=== PATIENT | male | born 1935 | race Caucasian/White ===

== ENCOUNTER 2017-06-07 07:49 | Inpatient (IN) | payer MEDICARE ==
[2017-06-07] VITALS (16 sets, daily range): BP systolic 116–159; BP diastolic 65–82; PULSE 54–86; RESP 16–20; TEMP 97.6–97.8; O2SAT 98–99
[~2017-06-07] VITALS: Ht 177.8 cm; Wt 101.5 kg
[~2017-06-07 07:49] MED LIST: ASCO500C PO; CENTTAB20; METO50TA PO; SIMV10 PO; SYNT112T PO; XARE10TA PO
--- NOTE | 2017-06-07 07:54 | PD ---
HPI Chief Complaint: chest pain Time Seen by Provider: 07:54 Travel History International Travel<30 days: No Contact w/Intl Traveler<30days: No Traveled to known affect area: No History of Present Illness HPI 81-year-old male came to the emergency room brought by EMS with history of left- sided chest pain that started after he woke up this morning at around 7 AM. Patient said when the pain first started it was 10 out of 10. Patient was given baby aspirin and 1 nitroglycerin. This subsided the pain down to 1 out of 10 currently. Patient says the pain was like a pressure and nonradiating. He could not identify any aggravating or relieving factors. His called 911. Patient has history of atrial fibrillation and he is on Xarelto. His told me that his recapper is Dr. Valentine. Patient has never had a cardiac catheterization but had a stress test that the patient or his cannot recall when. His vital signs were stable. Patient says he's never had this kind of pain before. No associated shortness of breath, dizziness or lightheadedness. [facility] Past Medical History Narrative Medical List of his past medical, surgical, social and family history is reviewed from the nursing note. Social History Tobacco Use: No Allergies-Medications (Allergen,Severity, Reaction): Coded Allergies: No Known Allergies (Unverified Allergy, Unknown, 06/07/17) Comments No known drug allergies. Reported Meds & Prescriptions Reported Meds & Active Scripts Active Reported Centrum (Multiple Vitamins W/ Minerals) 1 Chew 1 Tab CHEW DAILY Vitamin C (Ascorbic Acid) 250 Mg Chew 500 Mg CHEW BID Levothyroxine (Levothyroxine Sodium) 112 Mcg Tab 112 Mcg PO DAILY Simvastatin 10 Mg Tab 10 Mg PO DAILY Metoprolol Succinate ER 24 HR (Metoprolol Succinate) 25 Mg Tab 25 Mg PO BID Xarelto (Rivaroxaban) 10 Mg Tab 10 Mg PO DAILY Narrative Medication List of his home medications reviewed from the nursing note. Review of Systems Except as stated in HPI: all other systems reviewed are Neg Cardiovascular: Positive: Chest Pain or Discomfort Physical Exam Narrative GENERAL: Awake, alert, anxious, elderly, moderate distress SKIN: Focused skin assessment warm/dry. HEAD: Atraumatic. Normocephalic. EYES: Pupils equal and round. No scleral icterus. No injection or drainage. ENT: No nasal bleeding or discharge. Mucous membranes pink and moist. NECK: Trachea midline. No JVD. CARDIOVASCULAR: Regular rate and rhythm. No murmur appreciated. RESPIRATORY: No accessory muscle use. Clear to auscultation. Breath sounds equal bilaterally. GASTROINTESTINAL: Abdomen soft, non-tender, nondistended. Hepatic and splenic margins not palpable. MUSCULOSKELETAL: No obvious deformities. No clubbing. No cyanosis. No edema. NEUROLOGICAL: Awake and alert. No obvious cranial nerve deficits. Motor grossly within normal limits. Normal speech. PSYCHIATRIC: Appropriate mood and affect; insight and judgment normal. Data Data Last Documented VS Orders Orders Electrocardiogram (06/07/17 08:01) Basic Metabolic Panel (Bmp) (06/07/17 08:01) Ckmb (Isoenzyme) Profile (06/07/17 08:01) Complete Blood Count With Diff (06/07/17 08:01) Magnesium (Mg) (06/07/17 08:01) Prothrombin Time / Inr (Pt) (06/07/17 08:01) Act Partial Throm Time (Ptt) (06/07/17 08:01) Troponin I (06/07/17 08:01) Chest, Single Ap (06/07/17 08:01) Ecg Monitoring (06/07/17 08:01) Bilateral Bp Monitoring (06/07/17 08:01) Iv Access Insert/Monitor (06/07/17 08:01) Oximetry (06/07/17 08:01) Oxygen Administration (06/07/17 08:01) Sodium Chloride 0.9% Flush (Ns Flush) (06/07/17 08:15) Admit Order (Ed Use Only) (06/07/17 09:02) Labs Laboratory Tests Test 06/07/17 08:10 White Blood Count 5.1 TH/MM3 Red Blood Count 4.46 MIL/MM3 Hemoglobin 13.3 GM/DL Hematocrit 39.7 % Mean Corpuscular Volume 89.0 FL Mean Corpuscular Hemoglobin 29.8 PG Mean Corpuscular Hemoglobin Concent 33.4 % Red Cell Distribution Width 13.7 % Platelet Count 110 TH/MM3 Mean Platelet Volume 7.5 FL Neutrophils (%) (Auto) 68.7 % Lymphocytes (%) (Auto) 19.8 % Monocytes (%) (Auto) 8.3 % Eosinophils (%) (Auto) 2.4 % Basophils (%) (Auto) 0.8 % Neutrophils # (Auto) 3.5 TH/MM3 Lymphocytes # (Auto) 1.0 TH/MM3 Monocytes # (Auto) 0.4 TH/MM3 Eosinophils # (Auto) 0.1 TH/MM3 Basophils # (Auto) 0.0 TH/MM3 CBC Comment DIFF FINAL Differential Comment Prothrombin Time 11.5 SEC Prothromb Time International Ratio 1.0 RATIO Activated Partial Thromboplast Time 32.7 SEC Blood Urea Nitrogen 15 MG/DL Creatinine 0.97 MG/DL Random Glucose 100 MG/DL Calcium Level 8.7 MG/DL Magnesium Level 2.3 MG/DL Sodium Level 141 MEQ/L Potassium Level 4.5 MEQ/L Chloride Level 106 MEQ/L Carbon Dioxide Level 26.9 MEQ/L Anion Gap 8 MEQ/L Estimat Glomerular Filtration Rate 74 ML/MIN Total Creatine Kinase 41 U/L Troponin I LESS THAN 0.02 NG/ML MDM Medical Decision Making Medical Screen Exam Complete: Yes Emergency Medical Condition: Yes Medical Record Reviewed: Yes Interpretation(s) Twelve-lead EKG was reviewed by me. Atrial fibrillation, left bundle branch block, normal axis, EKG change since the last EKG on record from 2013. Heart rate of 73 bpm. Differential Diagnosis Serious, non-STEMI Narrative Course 9:11 AM blood test results of back and within acceptable limits. However given the nature of his pain, age of the patient I have decided to admit him to the chest pain center and have the recapper rule out ACS. I've explained this to the patient and his and they understand. 10:01 AM I was just told by the the chest pain center PA that he spoke with Dr. Valentine who would like the patient to be admitted medically and started on heparin drip with a plan to do a cardiac catheterization tomorrow. Awaiting for the hospitalist to call back at this point. Critical Care Narrative Aggregate critical care time was 30 minutes. Time to perform other separately billable procedures was not included in the critical care time. My time did not include minutes spent treating any other patients simultaneously or on activities that did not directly contribute to the patient's treatment. The services I provided to this patient were to treat and/or prevent clinically significant deterioration that could result in: ACS, heparin drip I provided critical care services requiring my management, as noted below: Chart data review, documentation time, medication orders and management, vital sign assessments/reviewing monitor data, ordering and reviewing lab tests, ordering and interpreting/reviewing x-rays and diagnostic studies, care of the patient and discussion of the patient with the admitting physicians. Procedures EKG Prior to Arrival: Yes Diagnosis Primary Impression: Chest pain Qualified Codes: R07.9 - Chest pain, unspecified Additional Impressions: Atrial fibrillation Qualified Codes: I48.1 - Persistent atrial fibrillation Left bundle branch block Admitting Information Admitting Physician Requests: Observation Hubert Sotelo MD Jun 07, 2017 07:54
[2017-06-07] MEDS ORDERED: SODIUM CHLORIDE 0.9% FLUSH 10 ML FLUSH IVF PRN (08:15)
[2017-06-07 08:33] LABS: AUTOMATED NEUTROPHIL # 3.5 TH/MM3 (1.8-7.7); BASOPHIL % 0.8 % (0.0-2.0); EOSINOPHIL # 0.1 TH/MM3 (0-0.4); EOSINOPHIL % 2.4 % (0.0-4.0); HEMATOCRIT 39.7 % (39.0-51.0); HEMO FLAGS DIFF FINAL; LYMPH % 19.8 % (9.0-44.0); MEAN CORPUSCULAR HEMOGLOBIN 29.8 PG (27.0-34.0); MEAN CORPUSCULAR HGB CONC 33.4 % (32.0-36.0); MONO % 8.3 % (0.0-8.0); NEUT % 68.7 % (16.0-70.0); PLATELET COUNT 110 TH/MM3 (150-450); RED BLOOD COUNT 4.46 MIL/MM3 (4.50-5.90); RED CELL DISTRIBUTION WIDTH 13.7 % (11.6-17.2); WHITE BLOOD COUNT 5.1 TH/MM3 (4.0-11.0)
[2017-06-07 08:46] LABS: APTT (PATIENT) 32.7 SEC (24.3-30.1); PROTHROMBIN TIME - PATIENT 11.5 SEC (9.8-11.6)
--- NOTE | 2017-06-07 08:49 | RADRPT ---
EXAM DATE/TIME: 06/07/2017 08:21 [place] COMPARISON: No previous studies available for comparison. INDICATIONS : Mid-sternal chest pains with pressure, radiating into left arm. MEDICAL HISTORY : Stroke. SURGICAL HISTORY : Left lobectomy ENCOUNTER: Initial ACUITY: 1 day PAIN SCORE: 7/10 LOCATION: Left chest FINDINGS: Post surgical features of prior left lung resection with complete opacification of the left hemithora x and mediastinal shift to the left. This obscures the cardiomediastinal contours. Right lung is cong r. Osseous structures are intact. CONCLUSION: 1. Post surgical features of left lung resection with complete opacification of the left hemithorax a nd mediastinal shift. 2. Otherwise, negative portable chest. Morales Rivera MD on June 07, 2017 at 8:46 Board Certified Radiologist. This report was verified electronically.
[2017-06-07 08:52] LABS: ANION GAP 8 MEQ/L (5-15); BICARBONATE 26.9 MEQ/L (21.0-32.0); BLOOD UREA NITROGEN 15 MG/DL (7-18); CHLORIDE 106 MEQ/L (98-107); GLOMERULAR FILTRATION RATE 74 ML/MIN (>89); MAGNESIUM 2.3 MG/DL (1.5-2.5); POTASSIUM 4.5 MEQ/L (3.5-5.1); SODIUM (NA) 141 MEQ/L (136-145)
[2017-06-07 09:00] LABS: CREATINE KINASE 41 U/L (39-308)
[2017-06-07] MEDS ORDERED: IOHEXOL 350 MG/ML 100 ML BTL (for Cath Lab) OTHER ONE (09:04)
[2017-06-07] MEDS ORDERED: ACETAMINOPHEN/HYDROcodone 325 MG/7.5 MG TAB PO PRN (09:45)
[2017-06-07] MEDS ORDERED: ACETAMINOPHEN 500 MG CPLT PO PRN (09:45)
[2017-06-07] MEDS ORDERED: ONDANSETRON HCL 4 MG/2 ML VIAL IV PUSH PRN ×2 (09:45→11:15)
[2017-06-07] MEDS ORDERED: SODIUM CHLORIDE 0.9% FLUSH 10 ML FLUSH IV FLUSH PRN ×2 (10:15→11:15)
[2017-06-07] MEDS: METOPROLOL TARTRATE 25 MG TAB PO SCH ×2 (11:00→21:15)
[2017-06-07] MEDS: HEPARIN-D5W 25,000 U/250 ML 250 ML IV PRN (11:07)
[2017-06-07] MEDS ORDERED: NITROGLYCERIN 0.4 MG SL 25 TABS/BTL SL PRN (11:15)
[2017-06-07] MEDS ORDERED: MORPHINE SULFATE 2 MG/ML INJ IV PUSH PRN (11:30)
[2017-06-07 12:10] LABS: CREATINE KINASE 39 U/L (39-308)
--- NOTE | 2017-06-07 12:49 | HHI.HP ---
[facility] Santos Baker MD Admission Diagnosis chest pain, rule out ACS Diagnoses: Chief Complaint: chest pain Travel History International Travel<30 Days: No Contact w/Intl Traveler <30 Da: No Traveled to Known Affected Are: No History of Present Illness Written by Michelle Jay, acting as scribe for Dr. Daley on 06/07/17 at 12: 44. 81-year-old male with history of atrial fibrillation on Xarelto, hyperlipidemia , hypothyroidism, lung cancer 2009 s/p left lung resection, CVA 2011, colon cancer 1998, presents with acute onset of chest pain prior to arrival. The patient reports shortly after awakening this morning around 7am, he started to developed chest pain located at the left anterior chest pain without radiation, described as 5-6/10 throbbing pains, without associated shortness of breath, diaphoresis, or nausea/vomiting. His called 911. He was given aspirin and nitro spray which relieved his chest pain after approximately 20minutes, now chest pain free. The patient denies any prior heart disease. He believes he's had a stress test which was reportedly unremarkable. He's never had a cardiac catheterization. His lavatory attendant is Dr. Carrera. He is a former smoker, quit in 2009. He denies any other medical complaints including no headache, lightheadedness, dizziness, abdominal pain, diarrhea, or urinary complaints. Review of Systems Except as stated in HPI: all other systems reviewed are Neg Past Family Social History Past Medical History atrial fibrillation on Xarelto hyperlipidemia hypothyroidism lung cancer 2009 s/p left lobectomy CVA 2011 colon cancer 1998 s/p resection/radiation/chemo Past Surgical History Left lung resection Partial colectomy s/p colostomy replacement and reversal Reported Medications Xarelto (Rivaroxaban) 10 Mg Tab 10 Mg PO DAILY Vitamin C (Ascorbic Acid) 500 Mg Cap 500 Mg PO DAILY Centrum Silver Ultra Mens (Multiple Vitamins W/ Minerals) Silver Tab Synthroid (Levothyroxine Sodium) 112 Mcg Tab 112 Mcg PO DAILY Zocor (Simvastatin) 10 Mg Tab 10 Mg PO HS Metoprolol Tartrate 50 mg (Metoprolol Tartrate) 50 Mg Tab 25 Mg PO BID Allergies: Coded Allergies: No Known Allergies (Unverified Allergy, Unknown, 06/07/17) Active Ordered Medications Current Medications Medications (Trade) Dose Ordered Sig/Rubens Route Start Time Stop Time Status Last Admin (Synthroid) 112 mcg DAILY@0600 PO 06/08/17 06:00 (Lopressor) 25 mg BID PO 06/07/17 10:30 06/07/17 11:00 (Pravachol) 20 mg HS PO 06/07/17 21:00 (Tylenol) 500 mg Q4H PRN PO 06/07/17 09:45 ([place] 7.5-325 Mg) 1 tab Q4H PRN PO 06/07/17 09:45 Heparin Sodium/ Dextrose 250 ml @ 10 mls/hr TITRATE PRN IV 06/07/17 10:15 06/07/17 11:07 (NS Flush) 2 ml BID IV FLUSH 06/07/17 21:00 (NS Flush) 2 ml UNSCH PRN IV FLUSH 06/07/17 11:15 (Ecotrin Ec) 325 mg DAILY PO 06/08/17 09:00 (Nitrostat Sl) 0.4 mg Q5M PRN SL 06/07/17 11:15 (Morphine Inj) 2 mg Q30M PRN IV PUSH 06/07/17 11:30 (Zofran Inj) 4 mg Q6H PRN IV PUSH 06/07/17 11:15 (Lipitor) 10 mg HS PO 06/07/17 21:00 Family History Reviewed and patient does not recall significant related family history Social History Former tobacco use, 3-4 cigars daily, quit in 2009 Rare alcohol use, 1-2x per month Denies any illicit drug use Physical Exam Vital Signs Vital Signs Date Time Temp Pulse Resp B/P (MAP) Pulse Ox O2 Delivery O2 Flow Rate FiO2 06/07/17 12:06 54 20 159/81 (107) 99 Room Air 06/07/17 10:05 54 18 116/82 (93) 99 Room Air 06/07/17 08:28 71 20 97 Room Air 06/07/17 08:07 98 Room Air 06/07/17 08:07 98 Room Air 06/07/17 08:06 134/65 (88) 06/07/17 08:03 97.8 70 16 134/65 (88) 98 Physical Exam GENERAL: Well-nourished, well-developed pleasant elderly male patient in NAD. SKIN: Warm and dry. No rash. HEAD: Normocephalic. Atraumatic. EYES: Pupils equal and round. No scleral icterus. No injection or drainage. ENT: No nasal bleeding or discharge. Mucous membranes pink and moist. NECK: Supple. Trachea midline. CARDIOVASCULAR: Irregularly irregular rate and rhythm. Distant heart sounds secondary to body habitus. No murmur appreciated. RESPIRATORY: No accessory muscle use. Clear to auscultation. Breath sounds equal bilaterally. GASTROINTESTINAL: Obese abdomen, soft, non-tender, nondistended. Normoactive bowel sounds x4. MUSCULOSKELETAL: No obvious deformities. 1+ bilateral lower extremity edema. Bilateral lower extremity venous stasis dermatitis. Faint but palpable bilateral dorsalis pedis pulses, nonpalpable posterior tibialis pulses. NEUROLOGICAL: Awake and alert. No obvious cranial nerve deficits. Motor grossly within normal limits. Moving all extremities spontaneously. Normal speech. PSYCHIATRIC: Appropriate mood and affect; insight and judgment normal. Laboratory Laboratory Tests Test 06/07/17 08:10 06/07/17 11:00 White Blood Count 5.1 Red Blood Count 4.46 Hemoglobin 13.3 Hematocrit 39.7 Mean Corpuscular Volume 89.0 Mean Corpuscular Hemoglobin 29.8 Mean Corpuscular Hemoglobin Concent 33.4 Red Cell Distribution Width 13.7 Platelet Count 110 Mean Platelet Volume 7.5 Neutrophils (%) (Auto) 68.7 Lymphocytes (%) (Auto) 19.8 Monocytes (%) (Auto) 8.3 Eosinophils (%) (Auto) 2.4 Basophils (%) (Auto) 0.8 Neutrophils # (Auto) 3.5 Lymphocytes # (Auto) 1.0 Monocytes # (Auto) 0.4 Eosinophils # (Auto) 0.1 Basophils # (Auto) 0.0 CBC Comment DIFF FINAL Differential Comment Prothrombin Time 11.5 Prothromb Time International Ratio 1.0 Activated Partial Thromboplast Time 32.7 Blood Urea Nitrogen 15 Creatinine 0.97 Random Glucose 100 Calcium Level 8.7 Magnesium Level 2.3 Sodium Level 141 Potassium Level 4.5 Chloride Level 106 Carbon Dioxide Level 26.9 Anion Gap 8 Estimat Glomerular Filtration Rate 74 Total Creatine Kinase 41 39 Troponin I LESS THAN 0.02 LESS THAN 0.02 Result Diagram: 06/07/1780906/07/17809 Imaging Last Impressions Chest X-Ray 06/07/17800 Signed Impressions: Service Date/Time: Wednesday, June 07, 2017 08:21 - CONCLUSION: 1. Post surgical features of left lung resection with complete opacification of the left hemithorax and mediastinal shift. 2. Otherwise, negative portable chest. MD Wyatt Rios VTE Risk Assessment Caprini VTE Risk Assessment: Mod/High Risk (score >= 2) Caprini Risk Assessment Model Point Value = 1 Point Value = 2 Point Value = 3 Point Value = 5 Age 41-60 Minor surgery BMI > 25 kg/m2 Swollen legs Varicose veins or History of unexplained or recurrent spontaneous Oral contraceptives or hormone replacement Sepsis (< 1 month) Serious lung disease, including pneumonia (< 1 month) Abnormal pulmonary function Acute myocardial infarction Congestive heart failure (< 1 month) History of inflammatory bowel disease Medical patient at bed rest Age 61-74 Arthroscopic surgery Major open surgery (> 45 min) Laparoscopic surgery (> 45 min) Malignancy Confined to bed (> 72 hours) Immobilizing plaster cast Central venous access Age >= 75 History of VTE Family history of VTE Factor V Leiden Prothrombin [id number] Lupus anticoagulant Anticardiolipin antibodies Elevated serum homocysteine Heparin-induced thrombocytopenia Other congenital or acquired thrombophilia Stroke (< 1 month) Elective arthroplasty Hip, pelvis, or leg fracture Acute spinal cord injury (< 1 month) Prophylaxis Regimen Total Risk Factor Score Risk Level Prophylaxis Regimen 0-1 Low Early ambulation 2 Moderate Order ONE of the following: *Sequential Compression Device (SCD) *Heparin 5000 units SQ BID 3-4 Higher Order ONE of the following medications: *Heparin 5000 units SQ TID *Enoxaparin/Lovenox 40 mg SQ daily (WT < 150 kg, CrCl > 30 mL/min) *Enoxaparin/Lovenox 30 mg SQ daily (WT < 150 kg, CrCl > 10-29 mL/min) *Enoxaparin/Lovenox 30 mg SQ BID (WT < 150 kg, CrCl > 30 mL/min) AND/OR *Sequential Compression Device (SCD) 5 or more Highest Order ONE of the following medications: *Heparin 5000 units SQ TID (Preferred with Epidurals) *Enoxaparin/Lovenox 40 mg SQ daily (WT < 150 kg, CrCl > 30 mL/min) *Enoxaparin/Lovenox 30 mg SQ daily (WT < 150 kg, CrCl > 10-29 mL/min) *Enoxaparin/Lovenox 30 mg SQ BID (WT < 150 kg, CrCl > 30 mL/min) AND *Sequential Compression Device (SCD) Assessment and Plan Problem List: (1) Chest pain ICD Code: R07.9 - Chest pain, unspecified Status: Acute (2) Left bundle branch block ICD Code: I44.7 - Left bundle-branch block, unspecified Status: Acute (3) Atrial fibrillation ICD Code: I48.91 - Atrial fibrillation Status: Acute Assessment and Plan 81-year-old male with history of atrial fibrillation on Xarelto, hyperlipidemia , hypothyroidism, lung cancer 2009 s/p lobectomy, CVA 2011, colon cancer 1998, presents with acute onset of chest pain prior to arrival. Chest Pain: concern for Acute Coronary Syndrome, new LBBB. Initial troponin negative. EKG reviewed, shows LBBB which is new compared to previous EKG in 2014. ER contacted Dr. Carrera, recommended heparin drip and plan for cardiac catheterization tomorrow. -Started on IV heparin drip -Continue to trend serial cardiac enzymes and EKGs -Continue aspirin, statin, BB, nitro prn, IV morphine prn, oxygen -Check lipid panel, HgbA1c -Monitor on telemetry -Consult cardiology, patient known to Dr. Carrera -Plan for cardiac catheterization tomorrow Peripheral Vascular Disease: exam with faint pulses and evidence of PVD. -check ABIs Atrial Fibrillation: chronic, HR well controlled -continue patient's metoprolol -holding Xarelto while on heparin drip -monitor on telemetry Hyperlipidemia: chronic -continue patient's statin -check lipid panel in the am Hypothyroidism: chronic -continue patient's levothyroxine DVT Prophylaxis: on Heparin drip Discussed Condition With Patient, ER This note was transcribed by katerine Jay I, Dr. Lyndsay Daley personally performed the history, physical exam, and medical decision making; and confirmed the accuracy of the information in the transcribed note. Authenticated by Dr. Lyndsay Daley on 06/07/17 at 12:44. Problem Qualifiers (1) Chest pain: Qualified Codes: R07.9 - Chest pain, unspecified (2) Atrial fibrillation: Qualified Codes: I48.1 - Persistent atrial fibrillation Michelle Jay PA-C Jun 07, 2017 12:49 Lyndsay Daley MD Jun 07, 2017 14:18
[2017-06-07] MEDS ORDERED: CENTCHW4 CHEW (14:27)
[2017-06-07] MEDS ORDERED: LEVO112T2 PO (14:27)
[2017-06-07] MEDS ORDERED: XARE10TA PO (14:27)
[2017-06-07] MEDS ORDERED: SIMV10TA PO (14:27)
[2017-06-07] MEDS ORDERED: VITA250C3 CHEW (14:27)
[2017-06-07] MEDS ORDERED: METO1TAB42 PO (14:27)
--- NOTE | 2017-06-07 16:53 | EKG ---
Date Performed: 06/07/2017 Time Performed: 08:03:10 PTAGE: 81 years EKG: ATRIAL FIBRILLATION LEFT BUNDLE BRANCH BLOCK ABNORMAL ECG Since PREVIOUS TRACING , new LBBB PREVIOUS TRACIN10/05/2013 10.48 DOCTOR: Roxanne Perez Interpretating Date/Time 06/07/2017 16:52:09
--- NOTE | 2017-06-07 16:54 | EKG ---
Date Performed: 06/07/2017 Time Performed: 11:14:50 PTAGE: 81 years EKG: ATRIAL FIBRILLATION WITH SLOW VENTRICULAR RESPONSE ABNORMAL RHYTHM ECG Since PREVIOUS TRACING , now LBB resolved PREVIOUS TRACIN06/07/2017 11.14 DOCTOR: Roxanne Perez Interpretating Date/Time 06/13/2017 07:33:08
[2017-06-07] MEDS: ATORVASTATIN 10 MG TAB PO SCH ×2 (17:28→21:16)
[2017-06-07 17:34] LABS: CREATINE KINASE 83 U/L (39-308)
[2017-06-07 19:56] LABS: APTT (PATIENT) 57.5 SEC (24.3-30.1)
[2017-06-07] MEDS ORDERED: SODIUM CHLORIDE 0.9% FLUSH 10 ML FLUSH IV FLUSH SCH (21:00)
[2017-06-07] MEDS: PRAVASTATIN SOD 20 MG TAB PO SCH (21:15)
[2017-06-07] MEDS: SODIUM CHLORIDE 0.9% FLUSH 10 ML FLUSH IV FLUSH SCH (21:16)
[2017-06-07 23:01] LABS: ALT (GPT) 27 U/L (12-78); AST (GOT) 19 U/L (15-37)
[2017-06-07 23:04] LABS: ALKALINE PHOSPHATASE 78 U/L (45-117); HDL CHOLESTEROL 52.1 MG/DL (40.0-60.0); INDIRECT BILIRUBIN 0.3 MG/DL (0.0-0.8); LDL CHOLESTEROL 46 MG/DL (0-99); TOTAL BILIRUBIN ADULT 0.5 MG/DL (0.2-1.0)
[2017-06-07 23:06] LABS: CREATINE KINASE 39 U/L (39-308)
[2017-06-08] VITALS (26 sets, daily range): BP systolic 119–152; BP diastolic 66–89; PULSE 60–90; RESP 16–18; TEMP 97.4–98; O2SAT 97–99
[2017-06-08 04:21] LABS: APTT (PATIENT) 68.8 SEC (24.3-30.1)
[2017-06-08 04:30] LABS: POTASSIUM 4.4 MEQ/L (3.5-5.1)
--- NOTE | 2017-06-08 06:26 | MB ---
cc: WERO GILMORE DO DATE OF CONSULTATION June 07, 2017 REASON FOR CONSULTATION Unstable angina. HISTORY OF PRESENT ILLNESS Nava Wiggins is a pleasant 81-year-old male who sees my partner Dr. Carrera in the office and presented to [facility] on June 07, 2017, due to acute onset of chest pain. He states that he woke up this morning around 07:00 a.m. and started developing chest pain located over the left anterior chest wall without radiation. The pain was 5/10 and throbbing. He denies shortness of breath, diaphoresis or nausea or vomiting. His called 03-18- and he was given aspirin and nitro spray which relieved his chest pain after approximately 20 minutes. On arrival to the emergency room he was found to have an EKG showing left bundle branch block which is new to him. As he was currently chest pain-free, he was placed on a heparin drip. In seeing him, he is currently chest pain-free and without shortness of breath. PAST MEDICAL HISTORY 1. Atrial fibrillation. 2. Hyperlipidemia. 3. Hypothyroidism. 4. Lung cancer. 5. CVA (2011). 6. Colon cancer. PAST SURGICAL HISTORY 1. Left lung lobectomy (2009). 2. Partial colectomy status post colostomy placement and reversal. ALLERGIES No known drug allergies. MEDICATIONS 1. Xarelto 10 mg daily. 2. Zocor 10 mg daily. 3. Toprol XL 25 mg b.i.d. 4. Synthroid 112 mcg daily FAMILY HISTORY Denies premature coronary artery disease or sudden cardiac within the family. SOCIAL HISTORY The patient is a former tobacco user with three to four cigars daily, quitting in 2009, rare alcohol use, denies drug abuse. REVIEW OF SYSTEMS 14-systems were reviewed including osteopathic pertinent positives and negatives above, otherwise negative. PHYSICAL EXAMINATION VITAL SIGNS: Temperature 97.8, heart rate 57, blood pressure 138/72, respirations 18, pulse ox 99% on room air. IN GENERAL: The patient appears well, in no acute distress, alert, awake and oriented x3. Extraocular muscles intact. Mucous membranes moist. NECK: Supple. No JVD at 45 degrees. No carotid bruits heard bilaterally. Carotid upstroke is brisk in nature. HEART: Irregularly irregular. Positive first and second heart sounds with no noted murmurs, gallops or rubs. LUNGS: Clear to auscultation bilaterally. No wheezes, rales or rhonchi. ABDOMEN: Soft, nontender, nondistended. No organomegaly noted. EXTREMITIES: No clubbing, cyanosis or edema. Femoral and distal pulses intact bilaterally. NEUROLOGICALLY: No focal deficits. SKIN: Warm, dry and intact. OSTEOPATHIC: No kyphoscoliosis, lordosis or paraspinal tender points. LABORATORY WORK Hemoglobin 13.3, hematocrit 39.7, platelets 110. Potassium 4.5, BUN 15, creatinine 0.97. Troponin negative x4. ELECTROCARDIOGRAM (June 07, 2017 at 15:19) Atrial fibrillation with left bundle branch block, nonspecific ST-T wave changes. IMPRESSIONS 1. Chest pain concerning for coronary insufficiency. 2. Atrial fibrillation currently on Xarelto for anticoagulation. 3. New onset left bundle branch block. 4. Hyperlipidemia. 5. History of tobacco abuse. 6. History of CVA. RECOMMENDATIONS 1. Mr. Wiggins presented with chest pain which was typical for angina relieved by nitroglycerin. 2. Because of this, he will be recommended cardiac catheterization in lieu of stress testing. Risks, benefits and alternatives were explained to him and he consents as such. 3. As he is currently stable, we will continue him on a heparin drip overnight and plan for cardiac catheterization in the morning due to him previously being on Xarelto. If overnight he becomes hemodynamically or electrically unstable, or has chest pain unrelieved by medications, he may need to go more emergently. 4. We will check a 2-D echo to look at his overall left ventricular function, cardiac structure and possible valvopathies. 5. Further recommendations will be made after coronary visualization. Thank you for allowing me to see Nava Wiggins. If there are any questions please do not hesitate to call. Wero Gilmore DO VGP/SSB /12:20 AM /6:20 AM
[2017-06-08] MEDS: LEVOTHYROXINE SODIUM 112 MCG TAB PO SCH (06:37)
--- NOTE | 2017-06-08 08:11 | HHI.PR ---
Subjective Remarks in no acute distress. denies chest pain or sob. awaiting cardiac cath today. Objective Vitals Vital Signs Date Time Temp Pulse Resp B/P (MAP) Pulse Ox O2 Delivery O2 Flow Rate FiO2 06/08/17 06:00 83 06/08/17 05:01 80 06/08/17 04:42 98 06/08/17 04:00 83 06/08/17 03:00 62 06/08/17 03:00 97.8 77 18 133/76 (95) 97 06/08/17 02:00 62 06/08/17 01:00 60 06/08/17 00:00 64 06/07/17 23:00 97.7 75 18 132/81 (98) 98 06/07/17 23:00 77 06/07/17 22:00 86 06/07/17 21:00 72 06/07/17 20:00 80 06/07/17 19:47 97.6 75 18 138/74 (95) 99 06/07/17 19:47 99 Room Air 06/07/17 19:00 67 06/07/17 18:00 68 06/07/17 17:00 80 06/07/17 16:00 66 06/07/17 15:00 58 06/07/17 14:45 97.8 57 18 138/72 (94) 99 06/07/17 14:28 06/07/17 12:06 54 20 159/81 (107) 99 Room Air 06/07/17 10:05 54 18 116/82 (93) 99 Room Air 06/07/17 08:28 71 20 97 Room Air I/O 06/07/17 06/07/17 06/07/17 06/08/17 06/08/17 06/08/17 07:00 15:00 23:00 07:00 15:00 23:00 Intake Total 500 ml 240 ml Output Total 300 ml Balance 200 ml 240 ml Intake Oral 420 ml 240 ml IV Total 80 ml Output Stool Total 300 ml # Voids 2 2 # Bowel Movements 1 Result Diagram: 06/07/17 0810 06/08/17 0333 Imaging Last Impressions Chest X-Ray 06/07/17 0801 Signed Impressions: Service Date/Time: Wednesday, June 07, 2017 08:21 - CONCLUSION: 1. Post surgical features of left lung resection with complete opacification of the left hemithorax and mediastinal shift. 2. Otherwise, negative portable chest. Morales Rivera MD Objective Remarks GENERAL: This is a well-nourished, well-developed patient, in no apparent distress. CARDIOVASCULAR: Regular rate and regular rhythm without murmurs, gallops, or rubs. RESPIRATORY: diminished air entry on lower lung felix. GASTROINTESTINAL: Abdomen soft, non-tender, nondistended. Normal, active bowel sounds MUSCULOSKELETAL: Extremities without clubbing, cyanosis, or edema. NEURO: Alert & Oriented x4 to person, place, time, situation. Moves all ext x4 Medications and IVs Current Medications Sodium Chloride (NS Flush) 2 ml UNSCH PRN IVF FLUSH AFTER USING IV ACCESS; Start 06/07/17 at 08:15; Stop 06/07/17 at 10:11; Status DC Levothyroxine Sodium (Synthroid) 112 mcg DAILY@0600 PO Last administered on 06:37; Start 06/08/17 at 06:00 Metoprolol Tartrate (Lopressor) 25 mg BID PO Last administered on 06/07/17 21 :15; Start 06/07/17 at 10:30 Rivaroxaban (Xarelto) 10 mg DAILY PO ; Start 06/08/17 at 09:00; Stop 06/08/17 at 09:00; Status DC Pravastatin Sodium (Pravachol) 20 mg HS PO Last administered on 06/07/17t 21: 15; Start 06/07/17 at 21:00 Sodium Chloride (NS Flush) 2 ml UNSCH PRN IV FLUSH FLUSH AFTER USING IV ACCESS ; Start 06/07/17 at 10:15; Stop 06/07/17 at 11:23; Status DC Sodium Chloride (NS Flush) 2 ml BID IV FLUSH ; Start 06/07/17 at 21:00; Stop 06/07/17 at 21:00; Status DC Acetaminophen (Tylenol) 500 mg Q4H PRN PO HEADACHE; Start 06/07/17 at 09:45 Acetaminophen/ Hydrocodone Bitart (Cory 7.5-325 Mg) 1 tab Q4H PRN PO PAIN SCALE 1 TO 7; Start 06/07/17 at 09:45 Ondansetron HCl (Zofran Inj) 4 mg Q6H PRN IV PUSH NAUSEA; Start 06/07/17 at 09 :45; Status Cancel Aspirin (Aspirin) 325 mg DAILY PO ; Start 06/08/17 at 09:00; Status Cancel Heparin Sodium/ Dextrose 250 ml @ 10 mls/hr TITRATE PRN IV Coagulation Management Last administered on 06/07/17 11:07; Start 06/07/17 at 10:15 Sodium Chloride (NS Flush) 2 ml BID IV FLUSH Last administered on 06/07/17 21 :16; Start 06/07/17 at 21:00 Sodium Chloride (NS Flush) 2 ml UNSCH PRN IV FLUSH FLUSH AFTER USING IV ACCESS ; Start 06/07/17 at 11:15 Aspirin (Ecotrin Ec) 325 mg DAILY PO ; Start 06/08/17 at 09:00 Nitroglycerin (Nitrostat Sl) 0.4 mg Q5M PRN SL CHEST PAIN; Start 06/07/17 at 11:15 Morphine Sulfate (Morphine Inj) 2 mg Q30M PRN IV PUSH CHEST PAIN; Start at 11:30 Ondansetron HCl (Zofran Inj) 4 mg Q6H PRN IV PUSH NAUSEA OR VOMITING; Start at 11:15 Atorvastatin Calcium (Lipitor) 10 mg HS PO Last administered on 06/07/17 21: 16; Start 06/07/17 at 21:00 A/P Problem List: (1) Chest pain ICD Code: R07.9 - Chest pain, unspecified Status: Acute (2) Left bundle branch block ICD Code: I44.7 - Left bundle-branch block, unspecified Status: Acute (3) Atrial fibrillation ICD Code: I48.91 - Atrial fibrillation Status: Acute Assessment and Plan A/P Chest Pain: concern for Acute Coronary Syndrome. -Started on IV heparin drip -Continue aspirin, statin, BB, nitro prn, IV morphine prn, oxygen -Monitor on telemetry -cardiology consult appreciated and plan for cardiac cath later today. Peripheral Vascular Disease: exam with faint pulses and evidence of PVD. -check ABIs Atrial Fibrillation: chronic, HR well controlled -continue patient's metoprolol -holding Xarelto while on heparin drip -monitor on telemetry Hyperlipidemia: chronic -continue patient's statin Hypothyroidism: chronic -continue patient's levothyroxine history of lung cancer- s/p left lung resection DVT Prophylaxis: on Heparin drip Problem Qualifiers (1) Chest pain: Qualified Codes: R07.9 - Chest pain, unspecified (2) Atrial fibrillation: Qualified Codes: I48.1 - Persistent atrial fibrillation Hugo Watson MD Jun 08, 2017 08:11
[2017-06-08] MEDS ORDERED: NITROGLYCERIN INJ 5 ML ONE (08:34)
[2017-06-08] MEDS ORDERED: VERAPAMIL HCL 5 MG/2 ML VIAL ONE (08:34)
[2017-06-08] MEDS ORDERED: HEPARIN SODIUM - IV 10,000 UNITS/10 ML VIAL ONE (08:34)
[2017-06-08] MEDS ORDERED: MIDAZOLAM HCL 2 MG/2 ML VIAL ONE (08:35)
[2017-06-08] MEDS ORDERED: HEPARIN-NS/PF INJ 1,000 ML ONE (08:39)
[2017-06-08] MEDS: SODIUM CHLORIDE 0.9% FLUSH 10 ML FLUSH IV FLUSH SCH ×3 (08:42→21:14)
[2017-06-08] MEDS: METOPROLOL TARTRATE 25 MG TAB PO SCH ×2 (08:42→21:14)
[2017-06-08] MEDS ORDERED: ASPIRIN 325 MG TAB PO SCH (09:00)
[2017-06-08] MEDS ORDERED: RIVAROXABAN 10 MG TAB PO SCH (09:00)
[2017-06-08] MEDS ORDERED: ASPIRIN EC 325 MG TABEC PO SCH (09:00)
--- NOTE | 2017-06-08 09:43 | CATHPROC ---
[employer] HIS Report Study Information Study Number Admission Scheduled Start Study Start [id number] Jun 07 2017 9:03AM 06/08/2017 Jun 08 2017 8:17AM Study Type [place] Service Left/Possible PCI Cardiac Catheterization Admit Source Facility Department Other [facility] - Undercover Operator Physician and Clinical Staff Initial Wero [facility] [employer] Laboratory Technician Karen Zazueta,RN Recorder Moses Main RCIS(BS) Scrub Karen Bearden,RT(R) Procedures Performed Procedure Location (Site) Vessel Name Coronary Angiograms LCA Left Coronary Coronary Angiograms RCA Right Coronary L Heart Cath Equipment Time Radio Frequency Design Engineer Description Size Mfg Part Number Used/Scraped TRANSDUCER, TRUWAVE [id number] 08:39 HUYNH AYALA * Used W/STOCKCOCK *[id number] *[id number] *[id number] 08:39 [employer] PACK, CCL CUSTOM * Used *[id number] 08:39 [employer] SUPPORT, ARTERIAL ADULT 36598 *[id number] Used BAND, RADIAL COMPRESSION TR [id number] 09:29 [employer] MEDICAL 29CM Used LARGE 29 *[id number] 08:39 [employer] WIRE, EXCHANGE 260CM 3MMJ 260CM Used *[id number] 08:39 NAMIC MANIFOLD, 4 PORT * Used *[id number] 08:39 [employer]COMED OMNIPAQUE, 350 MG, 150ML 150ML [id number] Used [id number] 08:39 GONZALEZ MEDICAL BLANKET,WARM AIR CCL * Used *[id number] SHEATH, FR6 TRANSRADIAL RM*[id number] 08:39 TERBella [employer] MEDICAL FR 6 Used SLENDER 10CM *[id number] History: Current Medications Medication Dosage/Unit Route Frequency Last Date/Time Taken Zocor Toprol XARELTO Synthroid History: Allergies Allergy Reaction No Known Allergies History: Risk Factors Family History of Hypertension Dyslipidemia Previous [place] Previous Heart Failure Premature CAD No Yes No No No Prior Valve Prior PCI Prior CABG Surgery No No No Cerebrovascular Peripheral Artery Chronic Lung On Dialysis Diabetes Disease Disease Disease No Yes No No No History: Symptoms/Diagnosis Selection Items Chest pain History: Stress Tests Stress or Imaging Studies Performed No History: Arrhythmias Selection Items Atrial fibrillation History: Other Current Smoker Method Quit Packs a Day Years Used Pack Years No Cigars 7 Years Ago 1 30 30 Labs Hgb (g/dl) Hct (%) RBC (MIL/MM3) WBC (l/cumm) Platelets (thousands) 11.60-17.00 35.00-51.00 4.00-5.90 4.00-11.00 150.00-450.00 13.3 39.7 4.4 5.1 110 Glucose (mg/dl) BUN (mg/dl) Creatinine (mg/dl) BUN:Creatinine (1:x) 74.00-106.00 7.00-18.00 0.50-1.30 10.00-20.00 98 17 0.8 21.3 Na (meq/l) K (meq/l) Cl (meq/l) CO2 (mmol/L) Ca (mg/dl) 136.00-145.00 3.50-5.10 98.00-107.00 21.00-32.00 8.50-10.10 141 4.5 106 26.9 8.6 PT (sec) PTT (sec) INR (PTT:PT) 9.80-11.60 24.30-30.10 0.90-1.10 11.5 57.5 1 Troponin I (ng/ml) CPK (u/l) CPK-MB (ng/ML) 0.02-0.05 26.00-308.00 0.50-3.60 0.02 39 Not Drawn Medication Medication Total Dose (Bolus/Oral) Medication Total Dosage/Unit 1% XYLOCAINE 10 mL FENTANYL 50 mcg RADIAL COCKTAIL 5 mL (Bolus) VERSED 0.5 mg Medications (Bolus/Oral) Medication Time Given Dosage/Unit Administered By Reason VERSED 06/08/2017 9:02:23 AM 0.5 mg Karen Zazueta 0.5 mg VERSED given in lab by Karen Zazueta, RN in Right Antecubital via Peripheral IV. Ordered by Wero Martel FENTANYL 06/08/2017 9:03:24 AM 50 mcg Karen Zazueta 50 mcg FENTANYL given in lab by Karen Zazueta, RN in Right Antecubital via Peripheral IV. Ordered by Wero Walker 1% XYLOCAINE 06/08/2017 9:06:08 AM 10 mL Wero Walker 10 mL 1% XYLOCAINE given in lab by Wero Walker in Right Radial via Subcutaneous. Ordered by Wero Martel Ntg 200mcg Verapamil 2.5mg Heparin RADIAL COCKTAIL 06/08/2017 9:14:28 AM 5 mL (Bolus) Wero Walker 3000U 5 mL (Bolus) RADIAL COCKTAIL given in lab by Wero Walker via Radial. Using [Solution Name]. O rdered by Wero Walker Reason: Ntg 200mcg Verapamil 2.5mg Heparin 4000U. Medication (Drip) Medication Time Given Dosage/Unit Concentration/Unit Diluent (ml) Solution IV Solutions 06/08/2017 8:32:58 AM 0 mL (IV) 500 NaCl .9 Patient arrived on IV Solutions in Right Antecubital via Peripheral IV. Pump/Drip Flow = 20 ml/hr usi ng NaCl .9. Ordered by Wero Walker Initial Case Assessment Cardiovascular HR Rhythm NIBP Chest Pain 61 AFIB W RBBB 119/71 0 Edema Present Skin color Skin None Normal Warm Dry Circulatory - Right Pulses Dorsalis Pedis Femoral Radial 2 1 2 Scale (0,1,2,3,4,d) Circulatory - Left Pulses Dorsalis Pedis Femoral Radial 2 1 Scale (0,1,2,3,4,d) Circulatory - Lower Extremities Color Lower Right Color Lower Left Normal Normal Neurological State Oriented to time-place- Alert Moves all extremities person Respiration - General Respiration Rate SpO2 (%) (B/min) 12 97 Final Case Assessment Cardiovascular HR Rhythm NIBP Chest Pain 61 AFIB W RBBB 119/71 0 Edema Present Skin color Skin None Normal Warm Dry Circulatory - Right Pulses Dorsalis Pedis Femoral Radial 2 1 2 Scale (0,1,2,3,4,d) Circulatory - Left Pulses Dorsalis Pedis Femoral Radial 2 1 Scale (0,1,2,3,4,d) Circulatory - Lower Extremities Color Lower Right Color Lower Left Normal Normal Neurological State Oriented to time-place- Alert Moves all extremities person Respiration - General Respiration Rate SpO2 (%) (B/min) 12 97 Chronological Log Time Study Chronological Log 8:31:20 Patient arrived via Bed. 8:31:21 Patient Name, D.O.B, / Armband Verified By R.N. 8:31:22 Consent signed by the physician and the patient and verified by the Undercover Operator staff. 8:31:26 Pre-op and post- op instructions given; patient acknowledges understanding of instructions. 8:31:27 Verbal Stimulation=2 Physical Stimulation=2 Airway=2 Respiration=2 TOTAL=8. (0=absent, 1=li mited, 2=present) 8:32:04 Allens test performed on the right radial and ulnar artery. 8:32:07 Patient has been NPO for More than 6Hrs. 8:32:10 Skin Breakdown- 8:32:13 Patient Warmer Placed on the Table. 8:32:57 A # 20 IV was noted in the Antecubital (right). Grade = 0 8:32:57 A # 20 IV was noted in the Hand (right). Grade = 0 Patient arrived on IV Solutions in Right Antecubital via Peripheral IV. Pump/Drip Flow = 20 ml/ hr using NaCl .9. Ordered 8:32:58 by Wero Walker 8:32:59 History and physical on the chart or being dictated. Assessment: Initial Case, HR=61 BPM, Rhythm=AFIB W RBBB, IREV=360/71 mmhg, Chest Pain=0, Edema=N one, Color=Normal, Skin = Warm, Dry Right Pulses: Jonathan Ped=2, Femoral=1, Radial=2 Left Pulses: Jonathan Ped=2, Femoral=1 8:33:00 Lower Right Extremities: Color=Normal Lower Left Extremities: Color=Normal Neurological: State=Alert, Ox3, LION Respiration: Resp=12 B/min, SpO2=97 % Vitals capture started with the following parameters, Patient=Adult, Interval=5 min, Initial Pre lecgc=012 mmHg, 8:34:09 Deflation Rate=5 mmHg, Cuff placed on Left Arm 8:34:44 HR=76 bpm, QFNP=948/72 mmhg, SpO2=96.0 %, Resp=11 B/min, Pain=0, Luma=10, Rabago=2 8:39:48 HR=56 bpm, JUMS=892/71 mmhg, SpO2=95.0 %, Resp=15 B/min, Pain=0, Luma=10, Rabago=2 8:42:06 Right Radial and groin(s) prepped with 2% chlorhexidine, and draped after a 3 min. waiting t greg. 8:44:47 HR=63 bpm, MWNL=949/70 mmhg, SpO2=96.0 %, Resp=12 B/min 8:45:47 Reference ECG taken 8:49:48 HR=65 bpm, AJOD=559/68 mmhg, SpO2=95.0 %, Resp=24 B/min 8:50:32 Pressure channel 1 zeroed. 8:54:49 HR=61 bpm, TRHM=286/66 mmhg, SpO2=93.0 %, Resp=8 B/min, Pain=0, Luma=10, Rabago=2 8:55:00 MD paged 8:59:46 HR=62 bpm, HHJK=801/65 mmhg, SpO2=94.0 %, Resp=7 B/min, Pain=0, Luma=10, Rabago=2 9:01:14 MD arrived. 0.5 mg VERSED given in lab by Karen Zazueta, RN in Right Antecubital via Peripheral IV. Ordered by Wero Walker 9:02:23 G. 50 mcg FENTANYL given in lab by Karen Zazueta, RN in Right Antecubital via Peripheral IV. Order ed by Aaron, 9:03:24 Wero Golden 9:04:49 HR=45 bpm, OGWE=539/58 mmhg, SpO2=92.0 %, Resp=7 B/min, Pain=0, Luma=10, Raabgo=2 Time Out. Correct patient, correct procedure, correct physician, power injector loaded, or not l oaded with contrast with 9:05:20 surgical team present. Time Out Concurred by MD and individual staff in procedure. 9:05:22 Case Start 10 mL 1% XYLOCAINE given in lab by Wero Walker in Right Radial via Subcutaneous. Ordered by Aaron, 9:06:08 Wero Golden 9:09:48 HR=71 bpm, OXEE=699/54 mmhg, SpO2=93.0 %, Resp=15 B/min, Pain=0, Luma=10, Rabago=2 9:14:03 Access site was RIGHT Radial Artery. A SHEATH, FR6 TRANSRADIAL SLENDER 10CM FR 6 was advanced into the Radial (right) using the Estella moreno 9:14:16 technique. 5 mL (Bolus) RADIAL COCKTAIL given in lab by Wero Walker via Radial. Using [Solution Nam e]. Ordered by 9:14:28 Wero Walker Reason: Ntg 200mcg Verapamil 2.5mg Heparin 4000U. 9:14:51 HR=67 bpm, NIBP=87/50 mmhg, SpO2=93.0 %, Resp=21 B/min, Pain=0, Luma=10, Rabago=2 A JR 4.0 INFINITI CATHETER FR 5 was advanced over a wire. OMNIPAQUE, 350 MG, 150ML 150ML was use d for 9:15:14 injections. Recorded Pressure: LV, HR=31, Condition=Condition 1 9:16:31 (Left Ventricle) LV 101/3/8 Recorded Pressure: LV, Ao, HR=38, Condition=Condition 1 9:17:01 (Left Ventricle) LV 98/4/10, (Aorta) Ao 96/-1/69 Recorded Pressure: Ao, HR=61, Condition=Condition 1 9:17:50 (Aorta) Ao 89/54/69 9:18:44 The RCA was injected and visualized at various angles. OMNIPAQUE, 350 MG, 150ML 150ML used. After removing the current catheter a JL 3.5 INFINITI CATHETER FR 5 was advanced over a WIRE, EX CHANGE 260CM 9:19:48 3MMJ 260CM. 9:20:19 HR=85 bpm, NIBP=97/60 mmhg, SpO2=92.0 %, Resp=10 B/min, Pain=0, Luma=10, Rabago=2 Recorded Pressure: Ao, HR=62, Condition=Condition 1 9:21:26 (Aorta) Ao 100/57/76 9:22:00 The LCA was injected and visualized at various angles. OMNIPAQUE, 350 MG, 150ML 150ML use d. 9:24:47 HR=78 bpm, NIBP=97/54 mmhg, Resp=15 B/min, Pain=0, Luma=10, Rabago=2 9:29:54 Catheter was removed 9:29:55 Case End 9:30:25 HR=82 bpm, XAFU=411/64 mmhg, SpO2=94.0 %, Resp=19 B/min, Pain=0, Luma=10, Rabago=2 Assessment: Final Case, HR=61 BPM, Rhythm=AFIB W RBBB, GBOO=636/71 mmhg, Chest Pain=0, Edema=N one, Color=Normal, Skin = Warm, Dry Right Pulses: Jonathan Ped=2, Femoral=1, Radial=2 Left Pulses: Jonathan Ped=2, Femoral=1 9:31:37 Lower Right Extremities: Color=Normal Lower Left Extremities: Color=Normal Neurological: State=Alert, Ox3, LION Respiration: Resp=12 B/min, SpO2=97 % Radial Compression Device Used. 10 mLs of air placed in BAND, RADIAL COMPRESSION TR LARGE 29 2 9CM. Affected 9:32:29 hand 96 % O2 saturation. 9:36:04 No case complications noted. 9:36:05 Sterile dressing applied to site 9:36:08 Cine recording checked. 9:36:10 Bedside Report will be given. 9:36:14 Contrast Scanned 9:36:16 A Left Heart Cath was performed. 9:36:18 Patient moved to stretcher End Study - Contrast Media Used In Study Contrast Total Opened (mL) Total Used (mL) Total Wasted (mL) Omnipaque 65 65 0 End Study - Maximum Contrast Load Max Contrast Load (mL) 618.8 End Study - Radiation Exposure Fluoro Time (minutes) 3.2 End Study - Patient Disposition Complications Transferred To No Critical Care Bed
--- NOTE | 2017-06-08 09:57 | EKG ---
Date Performed: 06/07/2017 Time Performed: 15:19:38 PTAGE: 81 years EKG: Atrial fibrillation with PVC(s). IV conduction defect Poor R wave progression - probable no rmal variant Lateral T wave changes are nonspecific Generalized low QRS voltages Abnormal ECG PREVIOUS TRACING : 06/07/2017 11.14 DOCTOR: Santos Galicia Interpretating Date/Time 06/08/2017 09:55:51
--- NOTE | 2017-06-08 10:26 | RADRPT ---
EXAM DATE/TIME: 06/07/2017 00:00 [facility] COMPARISON: No previous studies available for comparison. INDICATIONS : Chest pain, r/o ACS TECHNIQUE: Four-cuff ankle and brachial pressures were obtained. Pulse cuff waveform tracings of the ankles were recorded, and ankle-brachial indices were calculated. PRESSURES (mmHg): Brachial (arm): Right iv site Left 105 Ankle: Right 110 Left 156 CLAY: Right 1.05 Left 1.49 TBI: Right 0.94 Left 0.91 PULSED CUFF WAVEFORMS: Demonstrate normal amplitude bilaterally. CONCLUSION: Unremarkable ankle brachial indices. Morales Rivera MD on June 08, 2017 at 10:24 Board Certified Radiologist. This report was verified electronically.
[2017-06-08] MEDS ORDERED: SODIUM CHLORIDE 0.9% FLUSH 10 ML FLUSH IV FLUSH PRN ×2 (11:00→13:15)
[2017-06-08] MEDS: HEPARIN-D5W 25,000 U/250 ML 250 ML IV PRN (11:12)
--- NOTE | 2017-06-08 12:19 | RADRPT ---
EXAM DATE/TIME: 06/08/2017 11:19 [facility] COMPARISON: No previous studies available for comparison. INDICATIONS : Pre-Op cardiac surgery. MEDICAL HISTORY : Colon cancer. Atrial fibrillation on Xarelto. Hyperlipidemia. Hypothyroidism. Lung cancer. SURGICAL HISTORY : Left lobectomy. Partial colectomy. Colostomy placement and reversal. ENCOUNTER: Initial ACUITY: 1 day PAIN SCORE: 0/10 LOCATION: Bilateral legs. TECHNIQUE: Venous ultrasound of the left and right leg was performed from the inguinal ligament to the proximal calf. Real-time, color Doppler and spectral tracing, compression and augmentation techniques were us ed. FINDINGS: RIGHT LEG: There is normal compressibility of the deep venous system from the inguinal region to the proximal ca lf. No echogenic clot is seen in the lumen of the common femoral, femoral, popliteal, and posterior tibial veins. There is a normal response of the venous system to proximal and distal augmentation an d respiration. LEFT LEG: There is normal compressibility of the deep venous system from the inguinal region to the proximal ca lf. No echogenic clot is seen in the lumen of the common femoral, femoral, popliteal, and posterior tibial veins. There is a normal response of the venous system to proximal and distal augmentation an d respiration. CONCLUSION: No DVT. Torsten Yusuf MD on June 08, 2017 at 12:17 Board Certified Radiologist. This report was verified electronically.
--- NOTE | 2017-06-08 12:21 | RADRPT ---
EXAM DATE/TIME: 06/08/2017 11:49 [facility] COMPARISON: No previous studies available for comparison. INDICATIONS : Pre-Op cardiac surgery. MEDICAL HISTORY : Colon cancer. Atrial fibrillation on Xarelto. Hyperlipidemia. Hypothyroidism. Lung cancer. SURGICAL HISTORY : Left lobectomy. Partial colectomy. Colostomy placement and reversal. ENCOUNTER: Initial ACUITY: 1 day PAIN SCORE: 0/10 LOCATION: Bilateral neck PEAK SYSTOLIC VELOCITIES (cm/sec): ICA/CCA RATIO: Right: 1.0 Left: 0.9 ICA: Right: 91 Left: 80 CCA: Right: 90 Left: 93 ECA: Right: 83 Left: 76 VERTEBRAL: Right: 42 antegrade Left: 50 antegrade Elevated flow velocities and ICA/CCA ratios have been found to correlate with increased degrees of vessel stenosis, calculated as percentage of diameter relative to a normal segment of distal ICA/CCA FINDINGS: RIGHT CAROTID: No significant stenosis is visualized. The waveforms are within normal limits. LEFT CAROTID: No significant stenosis is visualized. The waveforms are within normal limits. VERTEBRAL ARTERIES: Antegrade flow is seen in both vertebral arteries. MISCELLANEOUS: None. CONCLUSION: Normal examination except for mild atherosclerotic disease without two-dimensional stenosis. Santos Morrow MD on June 08, 2017 at 12:19 Board Certified Radiologist. This report was verified electronically.
--- NOTE | 2017-06-08 12:28 | RADRPT ---
EXAM DATE/TIME: 06/08/2017 11:29 [facility] COMPARISON: No previous studies available for comparison. INDICATIONS : Pre-Op cardiac surgery. MEDICAL HISTORY : Colon cancer. Atrial fibrillation on Xarelto. Hyperlipidemia. Hypothyroidism. Lung cancer. SURGICAL HISTORY : Left lobectomy. Partial colectomy. Colostomy placement and reversal. ENCOUNTER: Initial ACUITY: 1 day PAIN SCORE: 0/10 LOCATION: Bilateral legs. GREATER SAPHENOUS VEIN THIGH: PROXIMAL: Right 4 mm Left 5 mm MID: Right 2 mm Left 2 mm DISTAL: Right 3 mm Left 2 mm CALF: PROXIMAL: Right 2 mm Left Non-visualized MID: Right 2 mm Left Non-visualized DISTAL: Right 2 mm Left Non-visualized FINDINGS: The venous system of the lower extremities are patent by color Doppler imaging. Measurements of the leg veins (in mm) are listed above. The left greater saphenous vein was not seen below the knee. CONCLUSION: Venous mapping as delineated above. Torsten Yusuf MD on June 08, 2017 at 12:18 Board Certified Radiologist. This report was verified electronically.
[2017-06-08 12:41] LABS: HEMOGLOBIN A1a 1.4 %; HEMOGLOBIN A1b 1.5 %; HEMOGLOBIN Ao 86.6 %; HEMOGLOBIN LA1C 1.7 %; HEMOGLOBIN P3 3.2 %
--- NOTE | 2017-06-08 13:01 | RADRPT ---
EXAM DATE/TIME: 06/08/2017 12:42 [facility] COMPARISON: No previous studies available for comparison. INDICATIONS : Pre op CABG. RADIATION DOSE: 7.82 CTDIvol (mGy) MEDICAL HISTORY : Thyroid disease SURGICAL HISTORY : Left pneumonectomy ENCOUNTER: Initial ACUITY: 1 day PAIN SCALE: 0/10 LOCATION: chest TECHNIQUE: Volumetric scanning of the chest was performed. Using automated exposure control and adjustment of t he mA and/or kV according to patient size, radiation dose was kept as low as reasonably achievable to obtain optimal diagnostic quality images. DICOM format image data is available electronically for r eview and comparison. Follow-up recommendations for detected pulmonary nodules are based at a minimum on nodule size and pa tient risk factors according to Fleischner Society Guidelines. FINDINGS: LUNGS: The patient had a left lobectomy . There is no consolidation or pneumothorax of the right lung except for minimal platelike atelectasis in the right upper lobe. No concerning pulmonary nodule is visual ized. PLEURAE: There is no pleural thickening or pleural effusion. MEDIASTINUM: The heart and great vessels demonstrate no acute abnormality. There is no mediastinal or hilar lymph adenopathy. Dense coronary atherosclerotic disease AXILLAE: Within normal limits. No lymphadenopathy. MUSCULOSKELETAL: Within normal limits for patient age. MISCELLANEOUS: The visualized upper abdominal organs demonstrate no acute abnormality. CONCLUSION: Normal examination status post left lobectomy. There is a minimal residual density along the pleural cavity without concerning features. Santos Morrow MD on June 08, 2017 at 12:57 Board Certified Radiologist. This report was verified electronically.
[2017-06-08 13:04] LABS: BLOOD, URINE NEG (NEG); COMMENT (UR) CULT NOT INDICATED; CULTURE IF INDICATED CULT NOT INDICATED; GLUCOSE,URINE NEG (NEG); KETONE, URINE NEG (NEG); MUCUS URINE FEW /lpf (OCC); NITRITE,URINE NEG (NEG); URINE COLOR LIGHT-YELLOW (YELLW/STRAW)
[2017-06-08] MEDS ORDERED: INSULIN REGULAR (IV INFUSION) 100 UNITS in SODIUM CHLORIDE 0.9% INJ 99 ML IV PRN (13:15)
[2017-06-08] MEDS ORDERED: DEXTROSE 50% IN WATER 50 ML VIAL(D50) IV PUSH PRN (13:15)
[2017-06-08] MEDS ORDERED: CHLORHEXIDINE GLUCONATE 4% SOLN 120 ML BTL TOPICAL SCH (13:15)
[2017-06-08] MEDS ORDERED: CEFAZOLIN INJ 500 MG in SODIUM CHLORIDE 0.9% IRR BTL 500 ML IRRIGATION SCH (13:15)
[2017-06-08] MEDS ORDERED: METOPROLOL TARTRATE 25 MG TAB PO SCH (13:15)
[2017-06-08] MEDS ORDERED: PAPAVERINE INJ 60 MG, NITROGLYCERIN INJ 100 MCG, DILTIAZEM INJ 100 MG in SODIUM CHLORID... IRRIGATION SCH (13:15)
[2017-06-08] MEDS ORDERED: ceFAZolin 2 GM PREMIX 50 ML IV SCH (13:15)
--- NOTE | 2017-06-08 13:32 | MB ---
cc: MAT RAMOS MD DATE OF CONSULTATION: 06/08/2017 1936. HISTORY OF PRESENT ILLNESS A 81-year-old male, patient of Dr. Carrera, Dr. Daniel Torres and also Dr. Walker, who presented to the emergency room on the secondary to acute onset of chest discomfort. He woke up in the morning and he developed pain over the left anterior chest wall without radiation. The pain was about a 5 out of a 10. He denied any associated shortness of breath, diaphoresis. His called . He was given some nitro spray and aspirin which relieved his chest pain. His EKG showed a left bundle branch block which is apparently new to him. His troponins were negative however, he was taken to the medical lab technician today by Dr. Walker which showed left main disease of 20%, proximal LAD 90%, mid distal LAD 90%, diagonal 10%, the circ 70%, the RCA 80%. 2-D echo is pending to evaluate the ejection fraction. We were consulted in regards to his coronary artery disease. PAST MEDICAL HISTORY His past medical history includes: 1. Oby-pbqnp-sljw lung CA in 2009, followed by a left pneumonectomy and one round of chemotherapy. 2. Atrial fibrillation since 2009 that was prior treated with Coumadin, now on Xarelto, his last dose was on the . 3. Hyperlipidemia. 4. Hypothyroidism. 5. 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 He did receive TPA at that time. 6. 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 He had radiation and chemotherapy. His oncologist is Dr. Rey. ALLERGIES No known allergies. MEDICATIONS Home medications include: 1. Xarelto. 2. Zocor. 3. Toprol. 4. Synthroid. FAMILY HISTORY No premature cardiac disease or sudden . SOCIAL HISTORY The patient is , four children. Smoked for 50 years cigars. He quit in 2009. REVIEW OF SYSTEMS As above in HPI, otherwise 12-systems unremarkable. PHYSICAL EXAMINATION GENERAL: Well-developed male. VITAL SIGNS: Blood pressure 120/70, heart rate of 80, temperature max 97.4. GENERAL: Patient is alert and oriented, in no acute distress. HEENT: Head is normocephalic, atraumatic. Pupils equal and reactive. Oral mucosa pink, moist. NECK: Supple. No JVD. HEART: Heart sounds S1-S2. LUNGS: No audible lung sounds on the left. He has a well-healed left lateral posterior incision intact, well-approximated. He has good bilateral breath sounds on the right. ABDOMEN: Soft, obese, nontender. No masses or organomegaly. EXTREMITIES: Reveal some chronic venostasis. He does have, however palpable pulses distally. LABORATORY DATA Lab work shows hemoglobin 13, hematocrit of 39, white cell count 5.1, platelet count of 110, sodium 140, potassium 4.4, BUN of 0.8, hemoglobin A1c is pending. Troponins negatives time four. Triglycerides 123, cholesterol 123, LDL 46, HDL of 52, INR 1.0. Urinalysis is pending. MRSA is pending. IMAGING STUDIES Carotid ultrasound is normal except for some mild atherosclerotic disease. CT of the chest is pending. Ultrasound of the lower extremities with no evidence for DVT, vein mapping, there is proximal left mid and distal calf nonvisualized. They also did an arterial Doppler study which was normal, unremarkable ankle-brachial indices. Chest x-ray did show postsurgical features of left lung resection, complete opacification of the left hemathorax and mediastinal shift. CT results are still pending. IMPRESSION This is a very pleasant 81-year-old male with multivessel disease, will require revascularization x3 to the LAD, OM and RCA, however the CT scans will also need to be evaluated by Dr. Mat Ramos in regards to mediastinal shift, adhesions and abnormalities from his pneumonectomy. Further decisions planned as per Dr. Ramos regarding the outcomes of the CT chest. Dictated by: ALEX Da Silva Mat GAYLE /1:00 PM /1:34 PM
--- NOTE | 2017-06-08 14:07 | PD.CAR.PN ---
CVT Progress Note Subjective/Hospital Course: sts data discussed with pt RISK SCORES About the STS Risk Calculator Procedure: CAB Only Risk of Mortality: 5.215% Morbidity or Mortality: 26.371% Long Length of Stay: 15.569% Short Length of Stay: 19.919% Permanent Stroke: 2.601% Prolonged Ventilation: 20.104% DSW Infection: 0.92% Renal Failure: 4.08% Reoperation: 9.619% Objective: Vital Signs Date Time Temp Pulse Resp B/P (MAP) Pulse Ox O2 Delivery O2 Flow Rate FiO2 06/08/17 11:33 97 06/08/17 10:00 85 06/08/17 08:00 82 06/08/17 07:00 97.4 80 16 123/79 (94) 99 06/08/17 07:00 99 Room Air 06/08/17 07:00 80 06/08/17 06:00 83 06/08/17 05:01 80 06/08/17 04:42 98 06/08/17 04:00 83 06/08/17 03:00 62 06/08/17 03:00 97.8 77 18 133/76 (95) 97 06/08/17 02:00 62 06/08/17 01:00 60 06/08/17 00:00 64 06/07/17 23:00 97.7 75 18 132/81 (98) 98 06/07/17 23:00 77 06/07/17 22:00 86 06/07/17 21:00 72 06/07/17 20:00 80 06/07/17 19:47 97.6 75 18 138/74 (95) 99 06/07/17 19:47 99 Room Air 06/07/17 19:00 67 06/07/17 18:00 68 06/07/17 17:00 80 06/07/17 16:00 66 06/07/17 15:00 58 06/07/17 14:45 97.8 57 18 138/72 (94) 99 06/07/17 14:28 Labs: Laboratory Tests Test 06/08/17 03:33 06/08/17 12:22 06/08/17 12:23 Activated Partial Thromboplast Time 68.8 SEC (24.3-30.1) Blood Urea Nitrogen 17 MG/DL (7-18) Creatinine 0.80 MG/DL (0.60-1.30) Random Glucose 98 MG/DL (74-106) Calcium Level 8.6 MG/DL (8.5-10.1) Sodium Level 140 MEQ/L (136-145) Potassium Level 4.4 MEQ/L (3.5-5.1) Chloride Level 106 MEQ/L (98-107) Carbon Dioxide Level 25.0 MEQ/L (21.0-32.0) Anion Gap 9 MEQ/L (5-15) Estimat Glomerular Filtration Rate 93 ML/MIN (>89) Urine Color LIGHT-YELLOW (YELLW/STRAW) Urine Turbidity CLEAR (CLEAR) Urine pH 6.0 (5.0-8.5) Urine Specific [place] 1.038 (1.002-1.035) Urine Protein NEG mg/dL (NEG-TRACE) Urine Glucose (UA) NEG mg/dL (NEG) Urine Ketones NEG mg/dL (NEG) Urine Occult Blood NEG (NEG) Urine Nitrite NEG (NEG) Urine Bilirubin NEG (NEG) Urine Urobilinogen LESS THAN 2.0 MG/DL (LESS Urine Leukocyte Esterase NEG (NEG) Urine RBC LESS THAN 1 /hpf (0-3) Urine Mucus FEW /lpf (OCC) Microscopic Urinalysis Comment CULT NOT INDICATED Result Diagram: 06/07/17 0810 06/08/17 0333 Adelita Bach Jun 08, 2017 14:07
--- NOTE | 2017-06-08 15:48 | ECHRPT ---
Indication: Atherosclerotic heart disease of [place] coronary artery with unspecified angina pector is CONCLUSIONS Poor acoustic windows. Normal left ventricular size. Mild concentric left ventricular hypertrophy. The left ventricular systolic function is normal with an estimated ejection fraction in the range of 60-65%. The right ventricle is mildly dilated. The right ventricular systoilc function is normal. The right atrial size is ckaf-sr-hsyygjriea dilated. The interatrial septum not well visualized. The interatrial septum bowed from right to left, consistent with increased right atrial pressure. Trace mitral valve regurgitation. The mitral valve is not well visualized. The aortic valve is not well visualized. There is moderate to severe tricuspid valve regurgitation. The estimated pulmonary arterial pressure is 54.6 mmHg. The pulmonary valve is not well visualized. There is a small pericardial effusion present. A prominent epicardial fat pad is present. BP: 123 / 79 HR: 80 Rhythm: Other MEASUREMENTS (Male / Female) Normal Values Technical Quality:Poor acoustic windows 2D ECHO LV Diastolic Diameter PLAX 3.8 cm 4.2 - 5.9 / 3.9 - 5.3 cm LV Systolic Diameter PLAX 2.9 cm IVS Diastolic Thickness 1.2 cm 0.6 - 1.0 / 0.6 - 0.9 cm LVPW Diastolic Thickness 1.1 cm 0.6 - 1.0 / 0.6 - 0.9 cm LV Relative Wall Thickness 0.6 LVOT Diameter 2.2 cm M-MODE Aortic Root Diameter MM 2.7 cm LA Systolic Diameter MM 4.2 cm LA Ao Ratio MM 1.6 AV Cusp Separation MM 2.0 cm DOPPLER AV Peak Velocity 105.0 cm/s AV Peak Gradient 4.4 mmHg LVOT Peak Velocity 82.9 cm/s LVOT Peak Gradient 2.7 mmHg AV Area Cont Eq pk 3.0 cm MR Peak Velocity 232.0 cm/s MR Peak Gradient 21.5 mmHg Mitral E Point Velocity 95.8 cm/s Mitral A Point Velocity 42.4 cm/s Mitral E to A Ratio 2.3 LV E' Septal Velocity 6.4 cm/s Mitral E to LV E' Septal Ratio 14.9 TR Peak Velocity 334.0 cm/s TR Peak Gradient 44.6 mmHg Right Atrial Pressure 10.0 mmHg Pulmonary Artery Systolic Pressu 54.6 mmHg Right Ventricular Systolic Press 54.6 mmHg PV Peak Velocity 95.0 cm/s PV Peak Gradient 3.6 mmHg FINDINGS LEFT VENTRICLE Normal left ventricular size. Mild concentric left ventricular hypertrophy. The left ventricular systolic function is normal with an estimated ejection fraction in the range of 60-65%. RIGHT VENTRICLE The right ventricle is mildly dilated. The right ventricular systoilc function is normal. LEFT ATRIUM The left atrial size is normal. RIGHT ATRIUM The right atrial size is jaxt-rz-eylckezjnj dilated. ATRIAL SEPTUM The interatrial septum not well visualized. The interatrial septum bowed from right to left, consistent with increased right atrial pressure. AORTA The aortic root and proximal ascending aorta are normal in size on limited imaging. MITRAL VALVE Trace mitral valve regurgitation. The mitral valve is not well visualized. AORTIC VALVE Trileaflet aortic valve. No aortic valve stenosis or regurgitation. The aortic valve is not well vi sualized. TRICUSPID VALVE There is moderate to severe tricuspid valve regurgitation. The estimated pulmonary arterial pressure is 54.6 mmHg. PULMONARY VALVE No pulmonary valve regurgitation or stenosis. The pulmonary valve is not well visualized. VESSELS The inferior vena cava is normal in size. PERICARDIUM There is a small pericardial effusion present. A prominent epicardial fat pad is present. Santos Galicia MD, FACC (Electronically Signed) Final Date:08 June 2017 15:47
--- NOTE | 2017-06-08 16:12 | PD.CARD.PN ---
Subjective Subjective Remarks Post-cath Doing well, no complaints Objective Medications Current Medications Medications (Trade) Dose Ordered Sig/Rub[place] Route Start Time Stop Time Status Last Admin (Synthroid) 112 mcg DAILY@0600 PO 06/08/17 06:00 06/08/17 06:37 (Lopressor) 25 mg BID PO 06/07/17 10:30 06/07/17 21:15 (Pravachol) 20 mg HS PO 06/07/17 21:00 06/07/17 21:15 (Tylenol) 500 mg Q4H PRN PO 06/07/17 09:45 ([place] 7.5-325 Mg) 1 tab Q4H PRN PO 06/07/17 09:45 Heparin Sodium/ Dextrose 250 ml @ 10 mls/hr TITRATE PRN IV 06/07/17 10:15 06/08/17 11:12 (NS Flush) 2 ml BID IV FLUSH 06/07/17 21:00 06/07/17 21:16 (NS Flush) 2 ml UNSCH PRN IV FLUSH 06/07/17 11:15 (Nitrostat Sl) 0.4 mg Q5M PRN SL 06/07/17 11:15 (Morphine Inj) 2 mg Q30M PRN IV PUSH 06/07/17 11:30 (Zofran Inj) 4 mg Q6H PRN IV PUSH 06/07/17 11:15 (Lipitor) 10 mg HS PO 06/07/17 21:00 06/07/17 21:16 (Aspirin Chew) 81 mg DAILY CHEW 06/09/17 09:00 (NS Flush) 2 ml BID IV FLUSH 06/08/17 21:00 (NS Flush) 2 ml UNSCH PRN IV FLUSH 06/08/17 13:15 Papaverine HCl 60 mg/Nitroglycerin 100 mcg/Diltiazem HCl 100 mg/Sodium Chloride 100 ml @ 0 mls/hr BARREL INSPECTOR IRRIGATION 06/08/17 13:15 06/15/17 13:14 Cefazolin Sodium 500 mg/Sodium Chloride 505 ml @ 0 mls/hr BARREL INSPECTOR IRRIGATION 06/08/17 13:15 06/15/17 13:14 Cefazolin Sodium/ Dextrose 50 ml @ 150 mls/hr BARREL INSPECTOR IV 06/08/17 13:15 06/15/17 13:14 (Lopressor) 12.5 mg BARREL INSPECTOR PO 06/08/17 13:15 06/15/17 13:14 (Hibiclens 4% Top Soln) 1 applic BARREL INSPECTOR TOPICAL 06/08/17 13:15 06/15/17 13:14 Insulin Human Regular 100 units/ Sodium Chloride 100 ml @ 3 mls/hr TITRATE PRN IV 06/08/17 13:15 06/15/17 13:14 (D50w (Vial) Inj) 50 ml UNSCH PRN IV PUSH 06/08/17 13:15 Vital Signs / I&O Vital Signs Date Time Temp Pulse Resp B/P (MAP) Pulse Ox O2 Delivery O2 Flow Rate FiO2 06/08/17 11:33 97 06/08/17 10:00 85 06/08/17 08:00 82 06/08/17 07:00 97.4 80 16 123/79 (94) 99 06/08/17 07:00 99 Room Air 06/08/17 07:00 80 06/08/17 06:00 83 06/08/17 05:01 80 06/08/17 04:42 98 06/08/17 04:00 83 06/08/17 03:00 62 06/08/17 03:00 97.8 77 18 133/76 (95) 97 06/08/17 02:00 62 06/08/17 01:00 60 06/08/17 00:00 64 06/07/17 23:00 97.7 75 18 132/81 (98) 98 06/07/17 23:00 77 06/07/17 22:00 86 06/07/17 21:00 72 06/07/17 20:00 80 06/07/17 19:47 97.6 75 18 138/74 (95) 99 06/07/17 19:47 99 Room Air 06/07/17 19:00 67 06/07/17 18:00 68 06/07/17 17:00 80 I/O 06/07/17 06/07/17 06/07/17 06/08/17 06/08/17 06/08/17 07:00 15:00 23:00 07:00 15:00 23:00 Intake Total 500 ml 240 ml Output Total 300 ml Balance 200 ml 240 ml Intake Oral 420 ml 240 ml IV Total 80 ml Output Stool Total 300 ml # Voids 2 2 # Bowel Movements 1 Physical Exam GENERAL: NAD, AAOx3 SKIN: Warm and dry. HEAD: Atraumatic. Normocephalic. EYES: Pupils equal and round. No scleral icterus. No injection or drainage. ENT: No nasal bleeding or discharge. Mucous membranes pink and moist. NECK: Trachea midline. No JVD. CARDIOVASCULAR: Irregularly irregular RESPIRATORY: No accessory muscle use. Clear to auscultation. Breath sounds equal bilaterally. GASTROINTESTINAL: Abdomen soft, non-tender, nondistended. Hepatic and splenic margins not palpable. MUSCULOSKELETAL: Extremities without clubbing, cyanosis, or edema. No obvious deformities. NEUROLOGICAL: Awake and alert. No obvious cranial nerve deficits. Motor grossly within normal limits. Five out of 5 muscle strength in the arms and legs. Normal speech. PSYCHIATRIC: Appropriate mood and affect; insight and judgment normal. Laboratory Laboratory Tests Test 06/07/17 16:14 06/07/17 19:08 06/07/17 22:22 06/08/17 03:33 Total Creatine Kinase 83 U/L 39 U/L Troponin I LESS THAN 0.02 NG/ML LESS THAN 0.02 NG/ML Activated Partial Thromboplast Time 57.5 SEC 68.8 SEC Total Bilirubin 0.5 MG/DL Direct Bilirubin 0.2 MG/DL Indirect Bilirubin 0.3 MG/DL Aspartate Amino Transf (AST/SGOT) 19 U/L Alanine Aminotransferase (ALT/SGPT) 27 U/L Alkaline Phosphatase 78 U/L Total Protein 7.0 GM/DL Albumin 3.4 GM/DL Triglycerides Level 123 MG/DL Cholesterol Level 123 MG/DL LDL Cholesterol 46 MG/DL HDL Cholesterol 52.1 MG/DL Cholesterol/HDL Ratio 2.36 RATIO Blood Urea Nitrogen 17 MG/DL Creatinine 0.80 MG/DL Random Glucose 98 MG/DL Calcium Level 8.6 MG/DL Sodium Level 140 MEQ/L Potassium Level 4.4 MEQ/L Chloride Level 106 MEQ/L Carbon Dioxide Level 25.0 MEQ/L Anion Gap 9 MEQ/L Estimat Glomerular Filtration Rate 93 ML/MIN Test 06/08/17 12:22 06/08/17 12:23 06/08/17 13:45 Nasal Screen MRSA (PCR) MRSA NOT DETECTED Urine Color LIGHT-YELLOW Urine Turbidity CLEAR Urine pH 6.0 Urine Specific [place] 1.038 Urine Protein NEG mg/dL Urine Glucose (UA) NEG mg/dL Urine Ketones NEG mg/dL Urine Occult Blood NEG Urine Nitrite NEG Urine Bilirubin NEG Urine Urobilinogen LESS THAN 2.0 MG/DL Urine Leukocyte Esterase NEG Urine RBC LESS THAN 1 /hpf Urine Mucus FEW /lpf Microscopic Urinalysis Comment CULT NOT INDICATED Imaging Last 24 hours Impressions Lower Extremity Ultrasound 06/08/17 Signed Impressions: Service Date/Time: Thursday, June 08, 2017 11:29 - CONCLUSION: Venous mapping as delineated above. Torsten Yusuf MD Lower Extremity Ultrasound 06/08/17 Signed Impressions: Service Date/Time: Thursday, June 08, 2017 11:19 - CONCLUSION: No DVT. Torsten Yusuf MD Chest CT 06/08/17 Signed Impressions: Service Date/Time: Thursday, June 08, 2017 12:42 - CONCLUSION: Normal examination status post left lobectomy. There is a minimal residual density along the pleural cavity without concerning features. Santos Morrow MD Carotid Artery Ultrasound 06/08/17 Signed Impressions: Service Date/Time: Thursday, June 08, 2017 11:49 - CONCLUSION: Normal examination except for mild atherosclerotic disease without two-dimensional stenosis. Santos Morrow MD Assessment and Plan Problem List: (1) Multi-vessel coronary artery stenosis ICD Codes: I25.10 - Atherosclerotic heart disease of [place] coronary artery without angina pectoris (2) Chest pain ICD Codes: R07.9 - Chest pain, unspecified Status: Acute (3) Left bundle branch block ICD Codes: I44.7 - Left bundle-branch block, unspecified Status: Acute (4) Atrial fibrillation ICD Codes: I48.91 - Atrial fibrillation Status: Acute (5) History of pneumonectomy ICD Codes: Z90.2 - Acquired absence of lung [part of] Assessment and Plan 1) Multi-vessel CAD For consideration of CABG by Dr. Murry Possible Tuesday, awaiting CT to evaluate changes due to pneumonectomy 2) Con't heparin drip 3) Echo pending 4) Will plan to see on Tuesday, if concerns over the holiday please call covering physician Problem Qualifiers (1) Chest pain: Qualified Codes: R07.9 - Chest pain, unspecified (2) Atrial fibrillation: Qualified Codes: I48.1 - Persistent atrial fibrillation Wero Walker DO Jun 08, 2017 16:12
[2017-06-08 17:16] LABS: HEMOGLOBIN A1b 1.5 %; HEMOGLOBIN Ao 86.5 %; HEMOGLOBIN LA1C 1.9 %; HEMOGLOBIN P3 3.4 %
[2017-06-08 18:54] LABS: APTT (PATIENT) 56.5 SEC (24.3-30.1)
[2017-06-08] MEDS ORDERED: SODIUM CHLORIDE 0.9% FLUSH 10 ML FLUSH IV FLUSH SCH (21:00)
[2017-06-08] MEDS: PRAVASTATIN SOD 20 MG TAB PO SCH (21:15)
[2017-06-09] VITALS (26 sets, daily range): BP systolic 116–133; BP diastolic 62–77; PULSE 53–107; RESP 16–20; TEMP 97.3–98.2; O2SAT 95–100
--- NOTE | 2017-06-09 00:16 | MA ---
cc: WERO WALKER DO DATE June 08, 2017 PROCEDURE Left heart catheterization, coronary angiogram, moderate sedation 30 minutes, ultrasound-guided access. PREPROCEDURE DIAGNOSIS Unstable angina, new left bundle branch block. POSTPROCEDURE DIAGNOSIS Multivessel coronary artery disease. MEDICATIONS 1. Versed 0.5 milligrams. 2. Fentanyl 25 micrograms. 3. Heparin 4000 units. 4. Verapamil 2.5 milligrams. 5. Nitro 200 micrograms. CONTRAST USED 65 cc. FLUOROSCOPY 3.2 minutes. MODERATE SEDATION 30 minutes. ESTIMATED BLOOD LOSS 10 cc. PROCEDURAL SUMMARY Nava Wiggins is a pleasant 81-year-old male who sees my partner, Dr. Carrera, in the office who presented to [facility] due to chest pain. He was found to have a new left bundle branch block and because of the chest pain and the changes in his EKG it was felt that he should undergo cardiac catheterization. Risks, benefits and alternatives were explained to him and he consented as such. He was brought to the lab and prepped in the usual sterile fashion. Right radial artery was accessed using a modified Seldinger technique with ultrasound guidance and placement of a 5/6 [place] slender sheath. This was easily aspirated and flushed. The JR-4 was advanced over a J-wire to the ascending aorta and across the aortic valve for measurement of left ventricular pressure. This was pulled back across the aortic valve showing no significant gradient of aortic stenosis. JR-4 was used for selective angiography of the right coronary artery. This was exchanged out for a JL 3.5 which was used for selective angiography of the left coronary artery system. JL 3.5 was removed over a J-wire. A radial band was placed over the arteriotomy site for hemostasis. The patient left the boat laborer cardiovascularly stable. FINDINGS Left main: Normal size vessel with 20% stenosis noted in the ostium. It bifurcates into an LAD and circumflex. LAD: Normal size vessel with 90% stenosis in the ostial portion. Midportion of the LAD has a 90% stenosis also. Distally, good runoff. It gives off one diagonal with no significant disease. Left circumflex: Normal size vessel with a 70% stenosis noted in the midportion at the takeoff of the first obtuse marginal. It supplies one large obtuse marginal with no significant disease. RCA: Normal size vessel with an 80% stenosis noted in the midportion. Overall, it is a dominant vessel with no significant disease noted in the PDA. LVEDP 10. IMPRESSION 1. Chest pain concerning for coronary insufficiency. 2. Multivessel coronary artery disease. 3. New left bundle branch block. 4. Atrial fibrillation. RECOMMENDATIONS 1. Mr. Wiggins appears to have multivessel coronary artery disease and because of this CT surgery will be consulted for consideration of coronary artery bypass grafting. 2. I discussed the results of the cardiac catheterization with Dr. Murry and he will see the patient in consultation. 3. Because of the patient's previous pneumonectomy we will plan on doing a CT of the chest to evaluate his anatomy. 4. We will check an echo to look at his overall left ventricular function, cardiac structure and possible valvulopathies. 5. Due to his unstable angina and multivessel disease he will be placed on a heparin drip 1 hour after his TR band is removed. 6. Further recommendations will be made after CT surgery evaluation. Thank you for allowing me to see Nava Wiggins. If there are any questions please do not hesitate to call. Wero Walker DO VGP/EO /9:07 PM /12:02 AM
[2017-06-09 04:44] LABS: AUTOMATED NEUTROPHIL # 3.6 TH/MM3 (1.8-7.7); BASOPHIL # 0.1 TH/MM3 (0-0.2); EOSINOPHIL # 0.1 TH/MM3 (0-0.4); EOSINOPHIL % 2.5 % (0.0-4.0); HEMATOCRIT 38.9 % (39.0-51.0); HEMO FLAGS DIFF FINAL; LYMPH % 17.2 % (9.0-44.0); LYMPHOCYTE # 0.9 TH/MM3 (1.0-4.8); MEAN CELL VOLUME 88.8 FL (80.0-100.0); MEAN CORPUSCULAR HEMOGLOBIN 30.2 PG (27.0-34.0); MEAN CORPUSCULAR HGB CONC 34.1 % (32.0-36.0); MONO % 8.7 % (0.0-8.0); NEUT % 70.6 % (16.0-70.0); PLATELET COUNT 100 TH/MM3 (150-450); RED BLOOD COUNT 4.38 MIL/MM3 (4.50-5.90); RED CELL DISTRIBUTION WIDTH 13.8 % (11.6-17.2); WHITE BLOOD COUNT 5.2 TH/MM3 (4.0-11.0)
[2017-06-09 04:58] LABS: APTT (PATIENT) 74.4 SEC (24.3-30.1)
[2017-06-09 05:11] LABS: BICARBONATE 24.9 MEQ/L (21.0-32.0); POTASSIUM 4.1 MEQ/L (3.5-5.1)
[2017-06-09] MEDS: LEVOTHYROXINE SODIUM 112 MCG TAB PO SCH (06:13)
--- NOTE | 2017-06-09 08:12 | HHI.PR ---
Subjective Remarks f/u; CAD in no acute distress. no chest pain or sob. awaiting CT surgery f/u/ recommendations. d/w the and the daughters at the bedside. Objective Vitals Vital Signs Date Time Temp Pulse Resp B/P (MAP) Pulse Ox O2 Delivery O2 Flow Rate FiO2 06/09/17 06:04 66 06/09/17 05:04 71 06/09/17 04:00 60 06/09/17 03:00 61 06/09/17 03:00 98.1 65 16 133/66 (88) 97 06/09/17 02:00 64 06/09/17 01:00 67 06/09/17 00:00 62 06/08/17 23:00 98.0 67 16 131/66 (87) 97 06/08/17 23:00 62 06/08/17 22:00 82 06/08/17 21:00 80 06/08/17 20:00 82 06/08/17 19:00 87 06/08/17 19:00 97.7 90 18 152/77 (102) 98 06/08/17 18:00 75 06/08/17 17:53 97 21 06/08/17 17:00 77 06/08/17 16:00 76 06/08/17 15:00 97.8 76 16 135/84 (101) 99 06/08/17 15:00 77 06/08/17 14:00 74 06/08/17 13:00 73 06/08/17 12:00 77 06/08/17 11:33 97 06/08/17 11:00 77 06/08/17 11:00 97.6 77 16 119/89 (99) 99 06/08/17 10:00 85 I/O 06/08/17 06/08/17 06/08/17 06/09/17 06/09/17 06/09/17 07:00 15:00 23:00 07:00 15:00 23:00 Intake Total 240 ml 300 ml 420 ml Output Total 525 ml 600 ml Balance 240 ml -225 ml -180 ml Intake Oral 240 ml 300 ml 240 ml IV Total 180 ml Output Urine Total 525 ml 600 ml # Voids 2 # Bowel Movements 1 Result Diagram: 06/09/17 0346 06/09/17 0342 Imaging Last Impressions Lower Extremity Ultrasound 06/08/17 0000 Signed Impressions: Service Date/Time: Thursday, June 08, 2017 11:29 - CONCLUSION: Venous mapping as delineated above. Torsten Yusuf MD Chest CT 06/08/17 0000 Signed Impressions: Service Date/Time: Thursday, June 08, 2017 12:42 - CONCLUSION: Normal examination status post left lobectomy. There is a minimal residual density along the pleural cavity without concerning features. Santos Morrow MD Carotid Artery Ultrasound 06/08/17 0000 Signed Impressions: Service Date/Time: Thursday, June 08, 2017 11:49 - CONCLUSION: Normal examination except for mild atherosclerotic disease without two-dimensional stenosis. Santos Morrow MD Chest X-Ray 06/07/17 0801 Signed Impressions: Service Date/Time: Wednesday, June 07, 2017 08:21 - CONCLUSION: 1. Post surgical features of left lung resection with complete opacification of the left hemithorax and mediastinal shift. 2. Otherwise, negative portable chest. Morales Rivera MD Objective Remarks GENERAL: This is a well-nourished, well-developed patient, in no apparent distress. CARDIOVASCULAR: Regular rate and regular rhythm without murmurs, gallops, or rubs. RESPIRATORY: diminished air entry on lower lung felix. GASTROINTESTINAL: Abdomen soft, non-tender, nondistended. Normal, active bowel sounds MUSCULOSKELETAL: Extremities without clubbing, cyanosis, or edema. NEURO: Alert & Oriented x4 to person, place, time, situation. Moves all ext x4 Medications and IVs Current Medications Sodium Chloride (NS Flush) 2 ml UNSCH PRN IVF FLUSH AFTER USING IV ACCESS; Start 06/07/17 at 08:15; Stop 06/07/17 at 10:11; Status DC Levothyroxine Sodium (Synthroid) 112 mcg DAILY@0600 PO Last administered on 06:13; Start 06/08/17 at 06:00 Metoprolol Tartrate (Lopressor) 25 mg BID PO Last administered on 06/08/17 21 :14; Start 06/07/17 at 10:30 Rivaroxaban (Xarelto) 10 mg DAILY PO ; Start 06/08/17 at 09:00; Stop 06/08/17 at 09:00; Status DC Pravastatin Sodium (Pravachol) 20 mg HS PO Last administered on 06/08/17 21: 15; Start 06/07/17 at 21:00 Sodium Chloride (NS Flush) 2 ml UNSCH PRN IV FLUSH FLUSH AFTER USING IV ACCESS ; Start 06/07/17 at 10:15; Stop 06/07/17 at 11:23; Status DC Sodium Chloride (NS Flush) 2 ml BID IV FLUSH ; Start 06/07/17 at 21:00; Stop 06/07/17 at 21:00; Status DC Acetaminophen (Tylenol) 500 mg Q4H PRN PO HEADACHE; Start 06/07/17 at 09:45 Acetaminophen/ Hydrocodone Bitart ([place] 7.5-325 Mg) 1 tab Q4H PRN PO PAIN SCALE 1 TO 7; Start 06/07/17 at 09:45 Ondansetron HCl (Zofran Inj) 4 mg Q6H PRN IV PUSH NAUSEA; Start 06/07/17 at 09 :45; Status Cancel Aspirin (Aspirin) 325 mg DAILY PO ; Start 06/08/17 at 09:00; Status Cancel Heparin Sodium/ Dextrose 250 ml @ 10 mls/hr TITRATE PRN IV Coagulation Management Last administered on 06/08/17 11:12; Start 06/07/17 at 10:15 Sodium Chloride (NS Flush) 2 ml BID IV FLUSH Last administered on 06/08/17 21 :14; Start 06/07/17 at 21:00 Sodium Chloride (NS Flush) 2 ml UNSCH PRN IV FLUSH FLUSH AFTER USING IV ACCESS ; Start 06/07/17 at 11:15 Aspirin (Ecotrin Ec) 325 mg DAILY PO ; Start 06/08/17 at 09:00; Stop 06/08/17 at 09:47; Status DC Nitroglycerin (Nitrostat Sl) 0.4 mg Q5M PRN SL CHEST PAIN; Start 06/07/17 at 11:15 Morphine Sulfate (Morphine Inj) 2 mg Q30M PRN IV PUSH CHEST PAIN; Start at 11:30 Ondansetron HCl (Zofran Inj) 4 mg Q6H PRN IV PUSH NAUSEA OR VOMITING; Start at 11:15 Atorvastatin Calcium (Lipitor) 10 mg HS PO Last administered on 06/07/17 21: 16; Start 06/07/17 at 21:00 Verapamil HCl (Isoptin Inj) 5 mg STK-MED ONCE .ROUTE Last administered on 06/08 09:13; Start 06/08/17 at 08:34; Stop 06/08/17 at 08:35; Status DC Nitroglycerin 5 ml @ As Directed STK-MED ONCE .ROUTE Last administered on 06/08 08:34; Start 06/08/17 at 08:34; Stop 06/08/17 at 08:35; Status DC Heparin Sodium (Porcine) (Heparin Inj) 10,000 units STK-MED ONCE .ROUTE Last administered on 06/08/17 08:34; Start 06/08/17 at 08:34; Stop 06/08/17 at 08 :35; Status DC Midazolam HCl (Versed Inj) 2 mg STK-MED ONCE .ROUTE Last administered on 09:02; Start 06/08/17 at 08:35; Stop 06/08/17 at 08:36; Status DC Fentanyl Citrate (fentaNYL INJ) 100 mcg STK-MED ONCE .ROUTE Last administered on 06/08/17 09:03; Start 06/08/17 at 08:35; Stop 06/08/17 at 08:36; Status DC Heparin Sodium/ Sodium Chloride 1,000 ml @ As Directed STK-MED ONCE .ROUTE ; Start 06/08/17 at 08:39; Stop 06/08/17 at 08:40; Status DC Aspirin (Aspirin Chew) 81 mg DAILY CHEW ; Start 06/09/17 at 09:00 Sodium Chloride (NS Flush) 2 ml BID IV FLUSH ; Start 06/08/17 at 21:00; Stop 06/08/17 at 21:00; Status DC Sodium Chloride (NS Flush) 2 ml UNSCH PRN IV FLUSH FLUSH AFTER USING IV ACCESS ; Start 06/08/17 at 11:00; Stop 06/08/17 at 11:13; Status DC Sodium Chloride (NS Flush) 2 ml BID IV FLUSH ; Start 06/08/17 at 21:00 Sodium Chloride (NS Flush) 2 ml UNSCH PRN IV FLUSH FLUSH AFTER USING IV ACCESS ; Start 06/08/17 at 13:15 Papaverine HCl 60 mg/Nitroglycerin 100 mcg/Diltiazem HCl 100 mg/Sodium Chloride 100 ml @ 0 mls/hr VENTILATION WORKER IRRIGATION ; Start 06/08/17 at 13:15; Stop at 13:14 Cefazolin Sodium 500 mg/Sodium Chloride 505 ml @ 0 mls/hr [employer]ILATION WORKER IRRIGATION ; Start 06/08/17 at 13:15; Stop 06/15/17 at 13:14 Cefazolin Sodium/ Dextrose 50 ml @ 150 mls/hr VENTILATION WORKER IV ; Start 06/08/17 at 13:15; Stop 06/15/17 at 13:14 Metoprolol Tartrate (Lopressor) 12.5 mg VENTILATION WORKER PO ; Start 06/08/17 at 13:15; Stop 06/15/17 at 13:14 Chlorhexidine Gluconate (Hibiclens 4% Top Soln) 1 applic VENTILATION WORKER TOPICAL ; Start 06/08/17 at 13:15; Stop 06/15/17 at 13:14 Insulin Human Regular 100 units/ Sodium Chloride 100 ml @ 3 mls/hr TITRATE PRN IV for blood glucose control; Start 06/08/17 at 13:15; Stop 06/15/17 at 13:14 Dextrose (D50w (Vial) Inj) 50 ml UNSCH PRN IV PUSH HYPOGLYCEMIA-SEE COMMENTS; Start 06/08/17 at 13:15 Iohexol (OMNIPAQUE 350 INJ (Electronic Installer)) 100 ml STK-MED ONCE OTHER ; Start at 09:04; Stop 06/08/17 at 22:05; Status DC A/P Problem List: (1) Chest pain ICD Code: R07.9 - Chest pain, unspecified Status: Acute (2) Left bundle branch block ICD Code: I44.7 - Left bundle-branch block, unspecified Status: Acute (3) Atrial fibrillation ICD Code: I48.91 - Atrial fibrillation Status: Acute Assessment and Plan A/P Multivessel CAD with LBBB -continue IV heparin drip -Continue aspirin, statin, BB, nitro prn, IV morphine prn, oxygen -Monitor on telemetry -cardiology f/u appreciated -awaiting CT surgery follow-up and recommendations. questionable Peripheral Vascular Disease- ABIs unremarkable. Atrial Fibrillation: chronic, HR well controlled -continue patient's metoprolol -holding Xarelto while on heparin drip -monitor on telemetry Hyperlipidemia: chronic -continue patient's statin Hypothyroidism: chronic -continue patient's levothyroxine history of lung cancer- s/p left lung resection DVT Prophylaxis: on Heparin drip Discharge Planning awaiting CT surgery and cardiology f/u and recommendations. Problem Qualifiers (1) Chest pain: Qualified Codes: R07.9 - Chest pain, unspecified (2) Atrial fibrillation: Qualified Codes: I48.1 - Persistent atrial fibrillation Hugo Watson MD Jun 09, 2017 08:12
[2017-06-09] MEDS: SODIUM CHLORIDE 0.9% FLUSH 10 ML FLUSH IV FLUSH SCH ×4 (09:00→20:37)
[2017-06-09] MEDS: METOPROLOL TARTRATE 25 MG TAB PO SCH ×2 (09:34→20:36)
[2017-06-09] MEDS: ASPIRIN 81 MG CHEW TAB CHEW SCH (09:35)
[2017-06-09] MEDS: HEPARIN-D5W 25,000 U/250 ML 250 ML IV PRN (10:25)
[2017-06-09] MEDS: PRAVASTATIN SOD 20 MG TAB PO SCH (20:36)
[2017-06-09] MEDS: ATORVASTATIN 10 MG TAB PO SCH (20:36)
[2017-06-10] VITALS (30 sets, daily range): BP systolic 107–140; BP diastolic 57–77; PULSE 45–118; RESP 16–18; TEMP 97.3–98.3; O2SAT 68–99
[2017-06-10] MEDS: LEVOTHYROXINE SODIUM 112 MCG TAB PO SCH (05:39)
[2017-06-10 05:58] LABS: MEAN CELL VOLUME 88.7 FL (80.0-100.0); MEAN CORPUSCULAR HEMOGLOBIN 29.9 PG (27.0-34.0); MEAN CORPUSCULAR HGB CONC 33.7 % (32.0-36.0); PLATELET COUNT 96 TH/MM3 (150-450); WHITE BLOOD COUNT 4.7 TH/MM3 (4.0-11.0)
[2017-06-10 06:01] LABS: REVIEW FLAG FINAL
[2017-06-10 06:09] LABS: APTT (PATIENT) 69.5 SEC (24.3-30.1)
[2017-06-10] MEDS: HEPARIN-D5W 25,000 U/250 ML 250 ML IV PRN (06:31)
--- NOTE | 2017-06-10 07:36 | HHI.PR ---
Subjective Remarks in no acute distress. no chest pain or sob. d/w the RN and no acute issues over night. Objective Vitals Vital Signs Date Time Temp Pulse Resp B/P (MAP) Pulse Ox O2 Delivery O2 Flow Rate FiO2 06/10/17 06:00 57 06/10/17 05:21 52 06/10/17 04:04 55 06/10/17 03:21 97.4 68 16 139/77 (97) 68 06/10/17 03:00 62 06/10/17 02:08 80 06/10/17 01:00 50 06/10/17 00:13 45 06/09/17 23:21 98.2 56 16 116/72 (87) 100 06/09/17 23:00 53 06/09/17 22:00 56 06/09/17 21:00 70 06/09/17 20:00 84 06/09/17 19:15 97.8 79 18 122/65 (84) 98 06/09/17 19:15 87 06/09/17 18:01 84 06/09/17 17:01 74 06/09/17 16:00 74 06/09/17 15:00 73 06/09/17 15:00 97.8 73 18 128/75 (92) 97 06/09/17 14:00 60 06/09/17 13:00 54 06/09/17 12:00 61 06/09/17 11:00 62 06/09/17 11:00 97.9 59 16 121/62 (81) 95 06/09/17 10:00 72 06/09/17 09:00 84 06/09/17 08:32 97 21 06/09/17 08:00 107 I/O 06/09/17 06/09/17 06/09/17 06/10/17 06/10/17 06/10/17 07:00 15:00 23:00 07:00 15:00 23:00 Intake Total 420 ml 480 ml 474 ml Output Total 600 ml 950 ml 300 ml Balance -180 ml -470 ml 174 ml Intake Oral 240 ml 480 ml 240 ml IV Total 180 ml 234 ml Output Urine Total 600 ml 250 ml 300 ml Stool Total 700 ml # Voids 6 2 Result Diagram: 06/10/17 0353 06/09/17 0342 Imaging Last Impressions Lower Extremity Ultrasound 06/08/17 0000 Signed Impressions: Service Date/Time: Thursday, June 08, 2017 11:29 - CONCLUSION: Venous mapping as delineated above. Torsten Yusuf MD Chest CT 06/08/17 0000 Signed Impressions: Service Date/Time: Thursday, June 08, 2017 12:42 - CONCLUSION: Normal examination status post left lobectomy. There is a minimal residual density along the pleural cavity without concerning features. Santos Morrow MD Carotid Artery Ultrasound 06/08/17 0000 Signed Impressions: Service Date/Time: Thursday, June 08, 2017 11:49 - CONCLUSION: Normal examination except for mild atherosclerotic disease without two-dimensional stenosis. Santos Mororw MD Chest X-Ray 06/07/17 0801 Signed Impressions: Service Date/Time: Wednesday, June 07, 2017 08:21 - CONCLUSION: 1. Post surgical features of left lung resection with complete opacification of the left hemithorax and mediastinal shift. 2. Otherwise, negative portable chest. Morales Rivera MD Objective Remarks GENERAL: This is a well-nourished, well-developed patient, in no apparent distress. CARDIOVASCULAR: Regular rate and regular rhythm without murmurs, gallops, or rubs. RESPIRATORY: diminished air entry on lower lung felix. GASTROINTESTINAL: Abdomen soft, non-tender, nondistended. Normal, active bowel sounds MUSCULOSKELETAL: Extremities without clubbing, cyanosis, or edema. NEURO: Alert & Oriented x4 to person, place, time, situation. Moves all ext x4 Medications and IVs Current Medications Sodium Chloride (NS Flush) 2 ml UNSCH PRN IVF FLUSH AFTER USING IV ACCESS; Start 06/07/17 at 08:15; Stop 06/07/17 at 10:11; Status DC Levothyroxine Sodium (Synthroid) 112 mcg DAILY@0600 PO Last administered on 05:39; Start 06/08/17 at 06:00 Metoprolol Tartrate (Lopressor) 25 mg BID PO Last administered on 06/09/17 20 :36; Start 06/07/17 at 10:30 Rivaroxaban (Xarelto) 10 mg DAILY PO ; Start 06/08/17 at 09:00; Stop 06/08/17 at 09:00; Status DC Pravastatin Sodium (Pravachol) 20 mg HS PO Last administered on 06/09/17 20: 36; Start 06/07/17 at 21:00 Sodium Chloride (NS Flush) 2 ml UNSCH PRN IV FLUSH FLUSH AFTER USING IV ACCESS ; Start 06/07/17 at 10:15; Stop 06/07/17 at 11:23; Status DC Sodium Chloride (NS Flush) 2 ml BID IV FLUSH ; Start 06/07/17 at 21:00; Stop 06/07/17 at 21:00; Status DC Acetaminophen (Tylenol) 500 mg Q4H PRN PO HEADACHE; Start 06/07/17 at 09:45 Acetaminophen/ Hydrocodone Bitart ([place] 7.5-325 Mg) 1 tab Q4H PRN PO PAIN SCALE 1 TO 7; Start 06/07/17 at 09:45 Ondansetron HCl (Zofran Inj) 4 mg Q6H PRN IV PUSH NAUSEA; Start 06/07/17 at 09 :45; Status Cancel Aspirin (Aspirin) 325 mg DAILY PO ; Start 06/08/17 at 09:00; Status Cancel Heparin Sodium/ Dextrose 250 ml @ 10 mls/hr TITRATE PRN IV Coagulation Management Last administered on 06/10/17 06:31; Start 06/07/17 at 10:15 Sodium Chloride (NS Flush) 2 ml BID IV FLUSH Last administered on 06/09/17 09 :35; Start 06/07/17 at 21:00 Sodium Chloride (NS Flush) 2 ml UNSCH PRN IV FLUSH FLUSH AFTER USING IV ACCESS ; Start 06/07/17 at 11:15 Aspirin (Ecotrin Ec) 325 mg DAILY PO ; Start 06/08/17 at 09:00; Stop 06/08/17 at 09:47; Status DC Nitroglycerin (Nitrostat Sl) 0.4 mg Q5M PRN SL CHEST PAIN; Start 06/07/17 at 11:15 Morphine Sulfate (Morphine Inj) 2 mg Q30M PRN IV PUSH CHEST PAIN; Start at 11:30 Ondansetron HCl (Zofran Inj) 4 mg Q6H PRN IV PUSH NAUSEA OR VOMITING; Start at 11:15 Atorvastatin Calcium (Lipitor) 10 mg HS PO Last administered on 06/09/17 20: 36; Start 06/07/17 at 21:00 Verapamil HCl (Isoptin Inj) 5 mg STK-MED ONCE .ROUTE Last administered on 06/08 09:13; Start 06/08/17 at 08:34; Stop 06/08/17 at 08:35; Status DC Nitroglycerin 5 ml @ As Directed STK-MED ONCE .ROUTE Last administered on 06/08 08:34; Start 06/08/17 at 08:34; Stop 06/08/17 at 08:35; Status DC Heparin Sodium (Porcine) (Heparin Inj) 10,000 units STK-MED ONCE .ROUTE Last administered on 06/08/17 08:34; Start 06/08/17 at 08:34; Stop 06/08/17 at 08 :35; Status DC Midazolam HCl (Versed Inj) 2 mg STK-MED ONCE .ROUTE Last administered on 09:02; Start 06/08/17 at 08:35; Stop 06/08/17 at 08:36; Status DC Fentanyl Citrate (fentaNYL INJ) 100 mcg STK-MED ONCE .ROUTE Last administered on 06/08/17 09:03; Start 06/08/17 at 08:35; Stop 06/08/17 at 08:36; Status DC Heparin Sodium/ Sodium Chloride 1,000 ml @ As Directed STK-MED ONCE .ROUTE ; Start 06/08/17 at 08:39; Stop 06/08/17 at 08:40; Status DC Aspirin (Aspirin Chew) 81 mg DAILY CHEW Last administered on 06/09/17 09:35; Start 06/09/17 at 09:00 Sodium Chloride (NS Flush) 2 ml BID IV FLUSH ; Start 06/08/17 at 21:00; Stop 06/08/17 at 21:00; Status DC Sodium Chloride (NS Flush) 2 ml UNSCH PRN IV FLUSH FLUSH AFTER USING IV ACCESS ; Start 06/08/17 at 11:00; Stop 06/08/17 at 11:13; Status DC Sodium Chloride (NS Flush) 2 ml BID IV FLUSH ; Start 06/08/17 at 21:00 Sodium Chloride (NS Flush) 2 ml UNSCH PRN IV FLUSH FLUSH AFTER USING IV ACCESS ; Start 06/08/17 at 13:15 Papaverine HCl 60 mg/Nitroglycerin 100 mcg/Diltiazem HCl 100 mg/Sodium Chloride 100 ml @ 0 mls/hr DRIVER'S LICENSE REVIEWING OFFICER IRRIGATION ; Start 06/08/17 at 13:15; Stop at 13:14 Cefazolin Sodium 500 mg/Sodium Chloride 505 ml @ 0 mls/hr [employer]IVER'S LICENSE REVIEWING OFFICER IRRIGATION ; Start 06/08/17 at 13:15; Stop 06/15/17 at 13:14 Cefazolin Sodium/ Dextrose 50 ml @ 150 mls/hr DRIVER'S LICENSE REVIEWING OFFICER IV ; Start 06/08/17 at 13:15; Stop 06/15/17 at 13:14 Metoprolol Tartrate (Lopressor) 12.5 mg DRIVER'S LICENSE REVIEWING OFFICER PO ; Start 06/08/17 at 13:15; Stop 06/15/17 at 13:14 Chlorhexidine Gluconate (Hibiclens 4% Top Soln) 1 applic [employer]IVER'S LICENSE REVIEWING OFFICER TOPICAL ; Start 06/08/17 at 13:15; Stop 06/15/17 at 13:14 Insulin Human Regular 100 units/ Sodium Chloride 100 ml @ 3 mls/hr TITRATE PRN IV for blood glucose control; Start 06/08/17 at 13:15; Stop 06/15/17 at 13:14 Dextrose (D50w (Vial) Inj) 50 ml UNSCH PRN IV PUSH HYPOGLYCEMIA-SEE COMMENTS; Start 06/08/17 at 13:15 Iohexol (OMNIPAQUE 350 INJ (Physical Science Aide)) 100 ml STK-MED ONCE OTHER ; Start at 09:04; Stop 06/08/17 at 22:05; Status DC A/P Problem List: (1) Chest pain ICD Code: R07.9 - Chest pain, unspecified Status: Acute (2) Left bundle branch block ICD Code: I44.7 - Left bundle-branch block, unspecified Status: Acute (3) Atrial fibrillation ICD Code: I48.91 - Atrial fibrillation Status: Acute Assessment and Plan A/P Multivessel CAD with LBBB -continue IV heparin drip -Continue aspirin, statin, BB, nitro prn, IV morphine prn, oxygen -Monitor on telemetry -cardiology f/u appreciated -plan for CABG on Tuesday- CT surgery following. Atrial Fibrillation: chronic, HR well controlled -continue patient's metoprolol -holding Xarelto while on heparin drip -monitor on telemetry Hyperlipidemia: chronic -continue patient's statin Hypothyroidism: chronic -continue patient's levothyroxine history of lung cancer- s/p left lung resection DVT Prophylaxis: on Heparin drip Discharge Planning for CABG on Tuesday- Problem Qualifiers (1) Chest pain: Qualified Codes: R07.9 - Chest pain, unspecified (2) Atrial fibrillation: Qualified Codes: I48.1 - Persistent atrial fibrillation Hugo Watson MD Jun 10, 2017 07:36
--- NOTE | 2017-06-10 08:50 | EKG ---
Date Performed: 06/07/2017 Time Performed: 22:53:48 PTAGE: 81 years EKG: Atrial fibrillation Severe right axis deviation Right bundle branch block Lateral infarct - age undetermined Possible anterior infarct - age undetermined Abnormal ECG PREVIOUS TRACING : 06/07/2017 15.19 DOCTOR: Santos Galicia Interpretating Date/Time 06/10/2017 08:48:00
[2017-06-10] MEDS: ASPIRIN 81 MG CHEW TAB CHEW SCH (09:52)
[2017-06-10] MEDS: METOPROLOL TARTRATE 25 MG TAB PO SCH ×2 (09:52→20:00)
[2017-06-10] MEDS: SODIUM CHLORIDE 0.9% FLUSH 10 ML FLUSH IV FLUSH SCH ×2 (19:59)
[2017-06-10] MEDS: PRAVASTATIN SOD 20 MG TAB PO SCH (20:00)
[2017-06-10] MEDS: ATORVASTATIN 10 MG TAB PO SCH (20:00)
[2017-06-11] VITALS (29 sets, daily range): BP systolic 109–119; BP diastolic 55–68; PULSE 51–86; RESP 16–51; TEMP 97.4–98.1; O2SAT 97–99
[2017-06-11] MEDS: HEPARIN-D5W 25,000 U/250 ML 250 ML IV PRN (03:17)
[2017-06-11 05:41] LABS: APTT (PATIENT) 69.2 SEC (24.3-30.1)
[2017-06-11] MEDS: LEVOTHYROXINE SODIUM 112 MCG TAB PO SCH (06:10)
--- NOTE | 2017-06-11 08:02 | HHI.PR ---
Subjective Remarks in no distress. no chest pain or sob. Objective Vitals Vital Signs Date Time Temp Pulse Resp B/P (MAP) Pulse Ox O2 Delivery O2 Flow Rate FiO2 06/11/17 06:00 75 06/11/17 05:00 57 06/11/17 04:00 61 06/11/17 03:00 52 06/11/17 03:00 97 Bi-Pap 06/11/17 03:00 97.4 57 16 109/55 (73) 97 06/11/17 02:00 68 06/11/17 01:00 64 06/11/17 00:00 58 06/10/17 23:10 97.6 62 18 107/57 (74) 99 06/10/17 23:10 99 Bi-Pap 06/10/17 23:00 55 06/10/17 22:14 98 Oxyhood 21 06/10/17 22:00 Bi-Pap 06/10/17 22:00 63 06/10/17 21:00 66 06/10/17 20:00 118 06/10/17 19:30 97.3 79 18 127/62 (83) 98 06/10/17 19:30 98 Room Air 06/10/17 19:00 73 06/10/17 18:00 82 06/10/17 17:00 76 06/10/17 16:00 70 06/10/17 15:30 67 06/10/17 15:30 97.8 67 18 120/64 (82) 97 06/10/17 14:00 62 06/10/17 13:00 58 06/10/17 12:08 98 21 06/10/17 12:00 64 06/10/17 11:40 74 06/10/17 11:40 98.3 74 18 109/62 (78) 98 06/10/17 11:00 64 06/10/17 10:00 76 06/10/17 09:00 64 I/O 06/10/17 06/10/17 06/10/17 06/11/17 06/11/17 06/11/17 07:00 15:00 23:00 07:00 15:00 23:00 Intake Total 474 ml 1040 ml 341 ml Output Total 300 ml 600 ml 450 ml Balance 174 ml 440 ml -109 ml Intake Oral 240 ml 900 ml 240 ml IV Total 234 ml 140 ml 101 ml Output Urine Total 300 ml 600 ml 450 ml Stool Total 0 ml 0 ml # Voids 2 Result Diagram: 06/10/17 0353 06/09/17 0342 Imaging Last Impressions Lower Extremity Ultrasound 06/08/17 0000 Signed Impressions: Service Date/Time: Thursday, June 08, 2017 11:29 - CONCLUSION: Venous mapping as delineated above. Torsten Yusuf MD Chest CT 06/08/17 0000 Signed Impressions: Service Date/Time: Thursday, June 08, 2017 12:42 - CONCLUSION: Normal examination status post left lobectomy. There is a minimal residual density along the pleural cavity without concerning features. Santos Morrow MD Carotid Artery Ultrasound 06/08/17 0000 Signed Impressions: Service Date/Time: Thursday, June 08, 2017 11:49 - CONCLUSION: Normal examination except for mild atherosclerotic disease without two-dimensional stenosis. Santos Morrow MD Chest X-Ray 06/07/17 0801 Signed Impressions: Service Date/Time: Wednesday, June 07, 2017 08:21 - CONCLUSION: 1. Post surgical features of left lung resection with complete opacification of the left hemithorax and mediastinal shift. 2. Otherwise, negative portable chest. Morales Rivera MD Objective Remarks GENERAL: This is a well-nourished, well-developed patient, in no apparent distress. CARDIOVASCULAR: Regular rate and regular rhythm without murmurs, gallops, or rubs. RESPIRATORY: diminished air entry on lower lung felix. GASTROINTESTINAL: Abdomen soft, non-tender, nondistended. Normal, active bowel sounds MUSCULOSKELETAL: Extremities without clubbing, cyanosis, or edema. NEURO: Alert & Oriented x4 to person, place, time, situation. Moves all ext x4 Medications and IVs Current Medications Sodium Chloride (NS Flush) 2 ml UNSCH PRN IVF FLUSH AFTER USING IV ACCESS; Start 06/07/17 at 08:15; Stop 06/07/17 at 10:11; Status DC Levothyroxine Sodium (Synthroid) 112 mcg DAILY@0600 PO Last administered on 06:10; Start 06/08/17 at 06:00 Metoprolol Tartrate (Lopressor) 25 mg BID PO Last administered on 11/24/17at 20 :00; Start 06/07/17 at 10:30 Rivaroxaban (Xarelto) 10 mg DAILY PO ; Start 06/08/17 at 09:00; Stop 06/08/17 at 09:00; Status DC Pravastatin Sodium (Pravachol) 20 mg HS PO Last administered on 06/10/17 20: 00; Start 06/07/17 at 21:00 Sodium Chloride (NS Flush) 2 ml UNSCH PRN IV FLUSH FLUSH AFTER USING IV ACCESS ; Start 06/07/17 at 10:15; Stop 06/07/17 at 11:23; Status DC Sodium Chloride (NS Flush) 2 ml BID IV FLUSH ; Start 06/07/17 at 21:00; Stop 06/07/17 at 21:00; Status DC Acetaminophen (Tylenol) 500 mg Q4H PRN PO HEADACHE; Start 06/07/17 at 09:45 Acetaminophen/ Hydrocodone Bitart ([place] 7.5-325 Mg) 1 tab Q4H PRN PO PAIN SCALE 1 TO 7; Start 06/07/17 at 09:45 Ondansetron HCl (Zofran Inj) 4 mg Q6H PRN IV PUSH NAUSEA; Start 06/07/17 at 09 :45; Status Cancel Aspirin (Aspirin) 325 mg DAILY PO ; Start 06/08/17 at 09:00; Status Cancel Heparin Sodium/ Dextrose 250 ml @ 10 mls/hr TITRATE PRN IV Coagulation Management Last administered on 06/11/17 03:17; Start 06/07/17 at 10:15 Sodium Chloride (NS Flush) 2 ml BID IV FLUSH Last administered on 06/09/17 09 :35; Start 06/07/17 at 21:00 Sodium Chloride (NS Flush) 2 ml UNSCH PRN IV FLUSH FLUSH AFTER USING IV ACCESS ; Start 06/07/17 at 11:15 Aspirin (Ecotrin Ec) 325 mg DAILY PO ; Start 06/08/17 at 09:00; Stop 06/08/17 at 09:47; Status DC Nitroglycerin (Nitrostat Sl) 0.4 mg Q5M PRN SL CHEST PAIN; Start 06/07/17 at 11:15 Morphine Sulfate (Morphine Inj) 2 mg Q30M PRN IV PUSH CHEST PAIN; Start at 11:30 Ondansetron HCl (Zofran Inj) 4 mg Q6H PRN IV PUSH NAUSEA OR VOMITING; Start at 11:15 Atorvastatin Calcium (Lipitor) 10 mg HS PO Last administered on 06/09/17 20: 36; Start 06/07/17 at 21:00 Verapamil HCl (Isoptin Inj) 5 mg STK-MED ONCE .ROUTE Last administered on 06/08 09:13; Start 06/08/17 at 08:34; Stop 06/08/17 at 08:35; Status DC Nitroglycerin 5 ml @ As Directed STK-MED ONCE .ROUTE Last administered on 06/08 08:34; Start 06/08/17 at 08:34; Stop 06/08/17 at 08:35; Status DC Heparin Sodium (Porcine) (Heparin Inj) 10,000 units STK-MED ONCE .ROUTE Last administered on 06/08/17 08:34; Start 06/08/17 at 08:34; Stop 06/08/17 at 08 :35; Status DC Midazolam HCl (Versed Inj) 2 mg STK-MED ONCE .ROUTE Last administered on 09:02; Start 06/08/17 at 08:35; Stop 06/08/17 at 08:36; Status DC Fentanyl Citrate (fentaNYL INJ) 100 mcg STK-MED ONCE .ROUTE Last administered on 06/08/17 09:03; Start 06/08/17 at 08:35; Stop 06/08/17 at 08:36; Status DC Heparin Sodium/ Sodium Chloride 1,000 ml @ As Directed STK-MED ONCE .ROUTE ; Start 06/08/17 at 08:39; Stop 06/08/17 at 08:40; Status DC Aspirin (Aspirin Chew) 81 mg DAILY CHEW Last administered on 06/10/17 09:52; Start 06/09/17 at 09:00 Sodium Chloride (NS Flush) 2 ml BID IV FLUSH ; Start 06/08/17 at 21:00; Stop 06/08/17 at 21:00; Status DC Sodium Chloride (NS Flush) 2 ml UNSCH PRN IV FLUSH FLUSH AFTER USING IV ACCESS ; Start 06/08/17 at 11:00; Stop 06/08/17 at 11:13; Status DC Sodium Chloride (NS Flush) 2 ml BID IV FLUSH ; Start 06/08/17 at 21:00 Sodium Chloride (NS Flush) 2 ml UNSCH PRN IV FLUSH FLUSH AFTER USING IV ACCESS ; Start 06/08/17 at 13:15 Papaverine HCl 60 mg/Nitroglycerin 100 mcg/Diltiazem HCl 100 mg/Sodium Chloride 100 ml @ 0 mls/hr EXTENSION ASSOCIATE IRRIGATION ; Start 06/08/17 at 13:15; Stop at 13:14 Cefazolin Sodium 500 mg/Sodium Chloride 505 ml @ 0 mls/hr EXTENSION ASSOCIATE IRRIGATION ; Start 06/08/17 at 13:15; Stop 06/15/17 at 13:14 Cefazolin Sodium/ Dextrose 50 ml @ 150 mls/hr EXTENSION ASSOCIATE IV ; Start 06/08/17 at 13:15; Stop 06/15/17 at 13:14 Metoprolol Tartrate (Lopressor) 12.5 mg EXTENSION ASSOCIATE PO ; Start 06/08/17 at 13:15; Stop 06/15/17 at 13:14 Chlorhexidine Gluconate (Hibiclens 4% Top Soln) 1 applic EXTENSION ASSOCIATE TOPICAL ; Start 06/08/17 at 13:15; Stop 06/15/17 at 13:14 Insulin Human Regular 100 units/ Sodium Chloride 100 ml @ 3 mls/hr TITRATE PRN IV for blood glucose control; Start 06/08/17 at 13:15; Stop 06/15/17 at 13:14 Dextrose (D50w (Vial) Inj) 50 ml UNSCH PRN IV PUSH HYPOGLYCEMIA-SEE COMMENTS; Start 06/08/17 at 13:15 Iohexol (OMNIPAQUE 350 INJ ([employer]ional [employer])) 100 ml STK-MED ONCE OTHER ; Start at 09:04; Stop 06/08/17 at 22:05; Status DC A/P Problem List: (1) Chest pain ICD Code: R07.9 - Chest pain, unspecified Status: Acute (2) Left bundle branch block ICD Code: I44.7 - Left bundle-branch block, unspecified Status: Acute (3) Atrial fibrillation ICD Code: I48.91 - Atrial fibrillation Status: Acute Assessment and Plan A/P Multivessel CAD with LBBB -continue IV heparin drip -Continue aspirin, statin, BB, nitro prn, IV morphine prn, oxygen -Monitor on telemetry -cardiology f/u appreciated -plan for CABG on Tuesday- CT surgery following. Atrial Fibrillation: chronic, HR well controlled -continue patient's metoprolol -holding Xarelto while on heparin drip -monitor on telemetry Hyperlipidemia: chronic -continue patient's statin Hypothyroidism: chronic -continue patient's levothyroxine history of lung cancer- s/p left lung resection DVT Prophylaxis: on Heparin drip Discharge Planning for CABG on Tuesday- Problem Qualifiers (1) Chest pain: Qualified Codes: R07.9 - Chest pain, unspecified (2) Atrial fibrillation: Qualified Codes: I48.1 - Persistent atrial fibrillation Hugo Watson MD Jun 11, 2017 08:02
[2017-06-11] MEDS: SODIUM CHLORIDE 0.9% FLUSH 10 ML FLUSH IV FLUSH SCH ×4 (09:00→20:05)
[2017-06-11] MEDS: ASPIRIN 81 MG CHEW TAB CHEW SCH (10:02)
[2017-06-11] MEDS: METOPROLOL TARTRATE 25 MG TAB PO SCH ×2 (10:03→20:05)
--- NOTE | 2017-06-11 10:23 | PD.CARD.PN ---
Subjective Subjective Remarks Doing well, no complaints Up and ambulating Objective Medications Current Medications Medications (Trade) Dose Ordered Sig/Rubens Route Start Time Stop Time Status Last Admin (Synthroid) 112 mcg DAILY@0600 PO 06/08/17 06:00 06/11/17 06:10 (Lopressor) 25 mg BID PO 06/07/17 10:30 06/11/17 10:03 (Pravachol) 20 mg HS PO 06/07/17 21:00 06/10/17 20:00 (Tylenol) 500 mg Q4H PRN PO 06/07/17 09:45 ([place] 7.5-325 Mg) 1 tab Q4H PRN PO 06/07/17 09:45 Heparin Sodium/ Dextrose 250 ml @ 10 mls/hr TITRATE PRN IV 06/07/17 10:15 06/11/17 03:17 (NS Flush) 2 ml BID IV FLUSH 06/07/17 21:00 06/11/17 09:00 (NS Flush) 2 ml UNSCH PRN IV FLUSH 06/07/17 11:15 (Nitrostat Sl) 0.4 mg Q5M PRN SL 06/07/17 11:15 (Morphine Inj) 2 mg Q30M PRN IV PUSH 06/07/17 11:30 (Zofran Inj) 4 mg Q6H PRN IV PUSH 06/07/17 11:15 (Lipitor) 10 mg HS PO 06/07/17 21:00 06/09/17 20:36 (Aspirin Chew) 81 mg DAILY CHEW 06/09/17 09:00 06/11/17 10:02 (NS Flush) 2 ml BID IV FLUSH 06/08/17 21:00 (NS Flush) 2 ml UNSCH PRN IV FLUSH 06/08/17 13:15 Papaverine HCl 60 mg/Nitroglycerin 100 mcg/Diltiazem HCl 100 mg/Sodium Chloride 100 ml @ 0 mls/hr SIDE FRAMER IRRIGATION 06/08/17 13:15 06/15/17 13:14 Cefazolin Sodium 500 mg/Sodium Chloride 505 ml @ 0 mls/hr SIDE FRAMER IRRIGATION 06/08/17 13:15 06/15/17 13:14 Cefazolin Sodium/ Dextrose 50 ml @ 150 mls/hr SIDE FRAMER IV 06/08/17 13:15 06/15/17 13:14 (Lopressor) 12.5 mg SIDE FRAMER PO 06/08/17 13:15 06/15/17 13:14 (Hibiclens 4% Top Soln) 1 applic SIDE FRAMER TOPICAL 06/08/17 13:15 06/15/17 13:14 Insulin Human Regular 100 units/ Sodium Chloride 100 ml @ 3 mls/hr TITRATE PRN IV 06/08/17 13:15 06/15/17 13:14 (D50w (Vial) Inj) 50 ml UNSCH PRN IV PUSH 06/08/17 13:15 Vital Signs / I&O Vital Signs Date Time Temp Pulse Resp B/P (MAP) Pulse Ox O2 Delivery O2 Flow Rate FiO2 06/11/17 07:23 97.4 69 18 119/65 (83) 98 06/11/17 07:23 98 Room Air 06/11/17 06:00 75 06/11/17 05:00 57 06/11/17 04:00 61 06/11/17 03:00 52 06/11/17 03:00 97 Bi-Pap 06/11/17 03:00 97.4 57 16 109/55 (73) 97 06/11/17 02:00 68 06/11/17 01:00 64 06/11/17 00:00 58 06/10/17 23:10 97.6 62 18 107/57 (74) 99 06/10/17 23:10 99 Bi-Pap 06/10/17 23:00 55 06/10/17 22:14 98 Oxyhood 21 06/10/17 22:00 Bi-Pap 06/10/17 22:00 63 06/10/17 21:00 66 06/10/17 20:00 118 06/10/17 19:30 97.3 79 18 127/62 (83) 98 06/10/17 19:30 98 Room Air 06/10/17 19:00 73 06/10/17 18:00 82 06/10/17 17:00 76 06/10/17 16:00 70 06/10/17 15:30 67 06/10/17 15:30 97.8 67 18 120/64 (82) 97 06/10/17 14:00 62 06/10/17 13:00 58 06/10/17 12:08 98 21 06/10/17 12:00 64 06/10/17 11:40 74 06/10/17 11:40 98.3 74 18 109/62 (78) 98 06/10/17 11:00 64 I/O 06/10/17 06/10/17 06/10/17 06/11/17 06/11/17 06/11/17 07:00 15:00 23:00 07:00 15:00 23:00 Intake Total 474 ml 1040 ml 341 ml Output Total 300 ml 600 ml 450 ml Balance 174 ml 440 ml -109 ml Intake Oral 240 ml 900 ml 240 ml IV Total 234 ml 140 ml 101 ml Output Urine Total 300 ml 600 ml 450 ml Stool Total 0 ml 0 ml # Voids 2 Physical Exam GENERAL: NAD, AAOx3 SKIN: Warm and dry. HEAD: Atraumatic. Normocephalic. EYES: Pupils equal and round. No scleral icterus. No injection or drainage. ENT: No nasal bleeding or discharge. Mucous membranes pink and moist. NECK: Trachea midline. No JVD. CARDIOVASCULAR: Irregularly irregular RESPIRATORY: No accessory muscle use. Decreased breath sounds left side GASTROINTESTINAL: Abdomen soft, non-tender, nondistended. Hepatic and splenic margins not palpable. MUSCULOSKELETAL: Extremities without clubbing, cyanosis, or edema. No obvious deformities. NEUROLOGICAL: Awake and alert. No obvious cranial nerve deficits. Motor grossly within normal limits. Five out of 5 muscle strength in the arms and legs. Normal speech. PSYCHIATRIC: Appropriate mood and affect; insight and judgment normal. 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 Murry Possible Tuesday 2) Con't heparin drip 3) EF 60-65%, mild LVH, mod-sev TR Problem Qualifiers (1) Chest pain: Qualified Codes: R07.9 - Chest pain, unspecified (2) Atrial fibrillation: Qualified Codes: I48.1 - Persistent atrial fibrillation Wero Walker DO Jun 11, 2017 10:23
[2017-06-11] MEDS: FLUTICASONE PROPIONATE 50 MCG/ACT 16 GM NASAL SPRAY NASAL PRN (15:54)
[2017-06-11] MEDS: PRAVASTATIN SOD 20 MG TAB PO SCH (20:05)
[2017-06-12] VITALS (28 sets, daily range): BP systolic 114–134; BP diastolic 55–78; PULSE 49–93; RESP 16–17; TEMP 97.5–98.3; O2SAT 97–99
[2017-06-12] MEDS: HEPARIN-D5W 25,000 U/250 ML 250 ML IV PRN ×2 (01:14→22:15)
[2017-06-12] MEDS: LEVOTHYROXINE SODIUM 112 MCG TAB PO SCH (05:47)
[2017-06-12 06:40] LABS: APTT (PATIENT) 69.9 SEC (24.3-30.1)
--- NOTE | 2017-06-12 07:44 | HHI.PR ---
Subjective Remarks in no acute distress. no chest pain or sob. d/w the RN and no acute issues over night. Objective Vitals Vital Signs Date Time Temp Pulse Resp B/P (MAP) Pulse Ox O2 Delivery O2 Flow Rate FiO2 06/12/17 07:00 50 06/12/17 06:00 86 06/12/17 05:04 53 06/12/17 04:00 49 06/12/17 03:04 98.1 59 17 118/61 (80) 98 06/12/17 03:02 57 06/12/17 02:00 58 06/12/17 01:00 52 06/12/17 00:06 51 06/11/17 23:20 97.9 51 17 117/66 (83) 98 06/11/17 23:19 76 06/11/17 22:08 63 06/11/17 21:00 86 06/11/17 20:00 84 06/11/17 19:00 98.1 71 16 113/67 (82) 98 06/11/17 19:00 76 06/11/17 18:00 83 06/11/17 17:00 73 06/11/17 16:00 66 06/11/17 15:27 99 Room Air 06/11/17 15:27 97.5 74 18 117/60 (79) 99 06/11/17 15:00 67 06/11/17 14:00 60 06/11/17 13:00 72 06/11/17 12:00 70 06/11/17 11:25 98 Room Air 06/11/17 11:25 97.4 68 18 112/68 (83) 98 06/11/17 11:22 98 21 06/11/17 11:00 56 06/11/17 10:00 61 06/11/17 09:00 59 06/11/17 08:00 70 I/O 06/11/17 06/11/17 06/11/17 06/12/17 06/12/17 06/12/17 07:00 15:00 23:00 07:00 15:00 23:00 Intake Total 341 ml 843 ml 353 ml Output Total 450 ml 400 ml Balance -109 ml 843 ml -47 ml Intake Oral 240 ml 720 ml 240 ml IV Total 101 ml 123 ml 113 ml Output Urine Total 450 ml 400 ml Stool Total 0 ml # Voids 4 2 Result Diagram: 06/10/17 0353 06/09/17 0342 Imaging Last Impressions Lower Extremity Ultrasound 06/08/17 0000 Signed Impressions: Service Date/Time: Thursday, June 08, 2017 11:29 - CONCLUSION: Venous mapping as delineated above. Torsten Yusuf MD Chest CT 06/08/17 0000 Signed Impressions: Service Date/Time: Thursday, June 08, 2017 12:42 - CONCLUSION: Normal examination status post left lobectomy. There is a minimal residual density along the pleural cavity without concerning features. Santos Morrow MD Carotid Artery Ultrasound 06/08/17 0000 Signed Impressions: Service Date/Time: Thursday, June 08, 2017 11:49 - CONCLUSION: Normal examination except for mild atherosclerotic disease without two-dimensional stenosis. Santos Morrow MD Chest X-Ray 06/07/17 0801 Signed Impressions: Service Date/Time: Wednesday, June 07, 2017 08:21 - CONCLUSION: 1. Post surgical features of left lung resection with complete opacification of the left hemithorax and mediastinal shift. 2. Otherwise, negative portable chest. Morales Rivera MD Objective Remarks GENERAL: This is a well-nourished, well-developed patient, in no apparent distress. CARDIOVASCULAR: Regular rate and regular rhythm without murmurs, gallops, or rubs. RESPIRATORY: diminished air entry on lower lung felix. GASTROINTESTINAL: Abdomen soft, non-tender, nondistended. Normal, active bowel sounds MUSCULOSKELETAL: Extremities without clubbing, cyanosis, or edema. NEURO: Alert & Oriented x4 to person, place, time, situation. Moves all ext x4 Medications and IVs Current Medications Sodium Chloride (NS Flush) 2 ml UNSCH PRN IVF FLUSH AFTER USING IV ACCESS; Start 06/07/17 at 08:15; Stop 06/07/17 at 10:11; Status DC Levothyroxine Sodium (Synthroid) 112 mcg DAILY@0600 PO Last administered on 05:47; Start 06/08/17 at 06:00 Metoprolol Tartrate (Lopressor) 25 mg BID PO Last administered on 06/11/17 20 :05; Start 06/07/17 at 10:30 Rivaroxaban (Xarelto) 10 mg DAILY PO ; Start 06/08/17 at 09:00; Stop 06/08/17 at 09:00; Status DC Pravastatin Sodium (Pravachol) 20 mg HS PO Last administered on 06/11/17 20: 05; Start 06/07/17 at 21:00 Sodium Chloride (NS Flush) 2 ml UNSCH PRN IV FLUSH FLUSH AFTER USING IV ACCESS ; Start 06/07/17 at 10:15; Stop 06/07/17 at 11:23; Status DC Sodium Chloride (NS Flush) 2 ml BID IV FLUSH ; Start 06/07/17 at 21:00; Stop 06/07/17 at 21:00; Status DC Acetaminophen (Tylenol) 500 mg Q4H PRN PO HEADACHE; Start 06/07/17 at 09:45 Acetaminophen/ Hydrocodone Bitart ([place] 7.5-325 Mg) 1 tab Q4H PRN PO PAIN SCALE 1 TO 7; Start 06/07/17 at 09:45 Ondansetron HCl (Zofran Inj) 4 mg Q6H PRN IV PUSH NAUSEA; Start 06/07/17 at 09 :45; Status Cancel Aspirin (Aspirin) 325 mg DAILY PO ; Start 06/08/17 at 09:00; Status Cancel Heparin Sodium/ Dextrose 250 ml @ 10 mls/hr TITRATE PRN IV Coagulation Management Last administered on 06/12/17 01:14; Start 06/07/17 at 10:15 Sodium Chloride (NS Flush) 2 ml BID IV FLUSH Last administered on 06/11/17 20 :05; Start 06/07/17 at 21:00 Sodium Chloride (NS Flush) 2 ml UNSCH PRN IV FLUSH FLUSH AFTER USING IV ACCESS ; Start 06/07/17 at 11:15 Aspirin (Ecotrin Ec) 325 mg DAILY PO ; Start 06/08/17 at 09:00; Stop 06/08/17 at 09:47; Status DC Nitroglycerin (Nitrostat Sl) 0.4 mg Q5M PRN SL CHEST PAIN; Start 06/07/17 at 11:15 Morphine Sulfate (Morphine Inj) 2 mg Q30M PRN IV PUSH CHEST PAIN; Start at 11:30 Ondansetron HCl (Zofran Inj) 4 mg Q6H PRN IV PUSH NAUSEA OR VOMITING; Start at 11:15 Atorvastatin Calcium (Lipitor) 10 mg HS PO Last administered on 06/09/17 20: 36; Start 06/07/17 at 21:00; Stop 06/11/17 at 15:04; Status DC Verapamil HCl (Isoptin Inj) 5 mg STK-MED ONCE .ROUTE Last administered on 06/08 09:13; Start 06/08/17 at 08:34; Stop 06/08/17 at 08:35; Status DC Nitroglycerin 5 ml @ As Directed STK-MED ONCE .ROUTE Last administered on 06/08 08:34; Start 06/08/17 at 08:34; Stop 06/08/17 at 08:35; Status DC Heparin Sodium (Porcine) (Heparin Inj) 10,000 units STK-MED ONCE .ROUTE Last administered on 06/08/17 08:34; Start 06/08/17 at 08:34; Stop 06/08/17 at 08 :35; Status DC Midazolam HCl (Versed Inj) 2 mg STK-MED ONCE .ROUTE Last administered on 09:02; Start 06/08/17 at 08:35; Stop 06/08/17 at 08:36; Status DC Fentanyl Citrate (fentaNYL INJ) 100 mcg STK-MED ONCE .ROUTE Last administered on 06/08/17 09:03; Start 06/08/17 at 08:35; Stop 06/08/17 at 08:36; Status DC Heparin Sodium/ Sodium Chloride 1,000 ml @ As Directed STK-MED ONCE .ROUTE ; Start 06/08/17 at 08:39; Stop 06/08/17 at 08:40; Status DC Aspirin (Aspirin Chew) 81 mg DAILY CHEW Last administered on 06/11/17 10:02; Start 06/09/17 at 09:00 Sodium Chloride (NS Flush) 2 ml BID IV FLUSH ; Start 06/08/17 at 21:00; Stop 06/08/17 at 21:00; Status DC Sodium Chloride (NS Flush) 2 ml UNSCH PRN IV FLUSH FLUSH AFTER USING IV ACCESS ; Start 06/08/17 at 11:00; Stop 06/08/17 at 11:13; Status DC Sodium Chloride (NS Flush) 2 ml BID IV FLUSH ; Start 06/08/17 at 21:00 Sodium Chloride (NS Flush) 2 ml UNSCH PRN IV FLUSH FLUSH AFTER USING IV ACCESS ; Start 06/08/17 at 13:15 Papaverine HCl 60 mg/Nitroglycerin 100 mcg/Diltiazem HCl 100 mg/Sodium Chloride 100 ml @ 0 mls/hr CABINET MOUNTER IRRIGATION ; Start 06/08/17 at 13:15; Stop at 13:14 Cefazolin Sodium 500 mg/Sodium Chloride 505 ml @ 0 mls/hr CABINET MOUNTER IRRIGATION ; Start 06/08/17 at 13:15; Stop 06/15/17 at 13:14 Cefazolin Sodium/ Dextrose 50 ml @ 150 mls/hr CABINET MOUNTER IV ; Start 06/08/17 at 13:15; Stop 06/15/17 at 13:14 Metoprolol Tartrate (Lopressor) 12.5 mg CABINET MOUNTER PO ; Start 06/08/17 at 13:15; Stop 06/15/17 at 13:14 Chlorhexidine Gluconate (Hibiclens 4% Top Soln) 1 applic CABINET MOUNTER TOPICAL ; Start 06/08/17 at 13:15; Stop 06/15/17 at 13:14 Insulin Human Regular 100 units/ Sodium Chloride 100 ml @ 3 mls/hr TITRATE PRN IV for blood glucose control; Start 06/08/17 at 13:15; Stop 06/15/17 at 13:14 Dextrose (D50w (Vial) Inj) 50 ml UNSCH PRN IV PUSH HYPOGLYCEMIA-SEE COMMENTS; Start 06/08/17 at 13:15 Iohexol (OMNIPAQUE 350 INJ (House Detective)) 100 ml STK-MED ONCE OTHER ; Start at 09:04; Stop 06/08/17 at 22:05; Status DC Fluticasone Propionate (Flonase Edin Spr) 1 spray BID PRN NASAL RUNNY NOSE Last administered on 06/11/17t 15:54; Start 06/11/17 at 15:00 A/P Problem List: (1) Chest pain ICD Code: R07.9 - Chest pain, unspecified Status: Acute (2) Left bundle branch block ICD Code: I44.7 - Left bundle-branch block, unspecified Status: Acute (3) Atrial fibrillation ICD Code: I48.91 - Atrial fibrillation Status: Acute Assessment and Plan A/P Multivessel CAD with LBBB -continue IV heparin drip -Continue aspirin, statin, BB, nitro prn, IV morphine prn, oxygen -Monitor on telemetry -cardiology f/u appreciated. -plan for CABG on Tuesday- CT surgery following. Atrial Fibrillation: chronic, HR well controlled -continue patient's metoprolol -holding Xarelto while on heparin drip -monitor on telemetry Hyperlipidemia: chronic -continue patient's statin Hypothyroidism: chronic -continue patient's levothyroxine history of lung cancer- s/p left lung resection DVT Prophylaxis: on Heparin drip Discharge Planning for CABG on Tuesday- Problem Qualifiers (1) Chest pain: Qualified Codes: R07.9 - Chest pain, unspecified (2) Atrial fibrillation: Qualified Codes: I48.1 - Persistent atrial fibrillation Hugo Watson MD Jun 12, 2017 07:44
[2017-06-12] MEDS: METOPROLOL TARTRATE 25 MG TAB PO SCH ×2 (08:51→20:38)
[2017-06-12] MEDS: ASPIRIN 81 MG CHEW TAB CHEW SCH (08:51)
[2017-06-12] MEDS: SODIUM CHLORIDE 0.9% FLUSH 10 ML FLUSH IV FLUSH SCH ×4 (08:51→20:39)
[2017-06-12] MEDS: FLUTICASONE PROPIONATE 50 MCG/ACT 16 GM NASAL SPRAY NASAL PRN (08:54)
--- NOTE | 2017-06-12 12:45 | PD.CARD.PN ---
Subjective Subjective Remarks Doing well, no complaints Up and ambulating Objective Medications Current Medications Medications (Trade) Dose Ordered Sig/Rubens Route Start Time Stop Time Status Last Admin (Synthroid) 112 mcg DAILY@0600 PO 06/08/17 06:00 06/12/17 05:47 (Lopressor) 25 mg BID PO 06/07/17 10:30 06/12/17 08:51 (Pravachol) 20 mg HS PO 06/07/17 21:00 06/11/17 20:05 (Tylenol) 500 mg Q4H PRN PO 06/07/17 09:45 ([place] 7.5-325 Mg) 1 tab Q4H PRN PO 06/07/17 09:45 Heparin Sodium/ Dextrose 250 ml @ 10 mls/hr TITRATE PRN IV 06/07/17 10:15 06/12/17 01:14 (NS Flush) 2 ml BID IV FLUSH 06/07/17 21:00 06/12/17 08:51 (NS Flush) 2 ml UNSCH PRN IV FLUSH 06/07/17 11:15 (Nitrostat Sl) 0.4 mg Q5M PRN SL 06/07/17 11:15 (Morphine Inj) 2 mg Q30M PRN IV PUSH 06/07/17 11:30 (Zofran Inj) 4 mg Q6H PRN IV PUSH 06/07/17 11:15 (Aspirin Chew) 81 mg DAILY CHEW 06/09/17 09:00 06/12/17 08:51 (NS Flush) 2 ml BID IV FLUSH 06/08/17 21:00 (NS Flush) 2 ml UNSCH PRN IV FLUSH 06/08/17 13:15 Papaverine HCl 60 mg/Nitroglycerin 100 mcg/Diltiazem HCl 100 mg/Sodium Chloride 100 ml @ 0 mls/hr ORDER DISPATCHER IRRIGATION 06/08/17 13:15 06/15/17 13:14 Cefazolin Sodium 500 mg/Sodium Chloride 505 ml @ 0 mls/hr ORDER DISPATCHER IRRIGATION 06/08/17 13:15 06/15/17 13:14 Cefazolin Sodium/ Dextrose 50 ml @ 150 mls/hr ORDER DISPATCHER IV 06/08/17 13:15 06/15/17 13:14 (Lopressor) 12.5 mg ORDER DISPATCHER PO 06/08/17 13:15 11/29/17 13:14 (Hibiclens 4% Top Soln) 1 applic ORDER DISPATCHER TOPICAL 06/08/17 13:15 06/15/17 13:14 Insulin Human Regular 100 units/ Sodium Chloride 100 ml @ 3 mls/hr TITRATE PRN IV 06/08/17 13:15 06/15/17 13:14 (D50w (Vial) Inj) 50 ml UNSCH PRN IV PUSH 06/08/17 13:15 (Flonase Edin Spr) 1 spray BID PRN NASAL 06/11/17 15:00 06/12/17 08:54 Vital Signs / I&O Vital Signs Date Time Temp Pulse Resp B/P (MAP) Pulse Ox O2 Delivery O2 Flow Rate FiO2 06/12/17 12:00 51 06/12/17 11:29 97.9 73 16 123/60 (81) 98 06/12/17 11:00 54 06/12/17 10:00 53 06/12/17 09:00 68 06/12/17 08:00 93 06/12/17 07:18 98.0 71 16 116/60 (78) 98 06/12/17 07:00 50 06/12/17 06:00 86 06/12/17 05:04 53 06/12/17 04:00 49 06/12/17 03:04 98.1 59 17 118/61 (80) 98 06/12/17 03:02 57 06/12/17 02:00 58 06/12/17 01:00 52 06/12/17 00:06 51 06/11/17 23:20 97.9 51 17 117/66 (83) 98 06/11/17 23:19 76 06/11/17 22:08 63 06/11/17 21:00 86 06/11/17 20:00 84 06/11/17 19:00 98.1 71 16 113/67 (82) 98 06/11/17 19:00 76 06/11/17 18:00 83 06/11/17 17:00 73 06/11/17 16:00 66 06/11/17 15:27 99 Room Air 06/11/17 15:27 97.5 74 18 117/60 (79) 99 06/11/17 15:00 67 11/25/17 14:00 60 06/11/17 13:00 72 I/O 06/11/17 06/11/17 06/11/17 06/12/17 06/12/17 06/12/17 07:00 15:00 23:00 07:00 15:00 23:00 Intake Total 341 ml 843 ml 353 ml Output Total 450 ml 400 ml Balance -109 ml 843 ml -47 ml Intake Oral 240 ml 720 ml 240 ml IV Total 101 ml 123 ml 113 ml Output Urine Total 450 ml 400 ml Stool Total 0 ml # Voids 4 2 Physical Exam GENERAL: NAD, AAOx3 SKIN: Warm and dry. HEAD: Atraumatic. Normocephalic. EYES: Pupils equal and round. No scleral icterus. No injection or drainage. ENT: No nasal bleeding or discharge. Mucous membranes pink and moist. NECK: Trachea midline. No JVD. CARDIOVASCULAR: Irregularly irregular RESPIRATORY: No accessory muscle use. Decreased breath sounds left side GASTROINTESTINAL: Abdomen soft, non-tender, nondistended. Hepatic and splenic margins not palpable. MUSCULOSKELETAL: Extremities without clubbing, cyanosis, or edema. No obvious deformities. NEUROLOGICAL: Awake and alert. No obvious cranial nerve deficits. Motor grossly within normal limits. Five out of 5 muscle strength in the arms and legs. Normal speech. PSYCHIATRIC: Appropriate mood and affect; insight and judgment normal. Laboratory Laboratory Tests Test 06/12/17 05:11 Activated Partial Thromboplast Time 69.9 SEC Assessment and Plan Problem List: (1) Multi-vessel coronary artery stenosis ICD Codes: I25.10 - Atherosclerotic heart disease of [place] coronary artery without angina pectoris (2) Chest pain ICD Codes: R07.9 - Chest pain, unspecified Status: Acute (3) Left bundle branch block ICD Codes: I44.7 - Left bundle-branch block, unspecified Status: Acute (4) Atrial fibrillation ICD Codes: I48.91 - Atrial fibrillation Status: Acute (5) History of pneumonectomy ICD Codes: Z90.2 - Acquired absence of lung [part of] Assessment and Plan 1) Multi-vessel CAD For consideration of CABG by Dr. Jeanmarie Kent for tomorrow 2) Con't heparin drip 3) EF 60-65%, mild LVH, mod-sev TR Problem Qualifiers (1) Chest pain: Qualified Codes: R07.9 - Chest pain, unspecified (2) Atrial fibrillation: Qualified Codes: I48.1 - Persistent atrial fibrillation Wero Walker DO Jun 12, 2017 12:45
[2017-06-12] MEDS: PRAVASTATIN SOD 20 MG TAB PO SCH (20:38)
--- NOTE | 2017-06-12 20:53 | EKG ---
Date Performed: 06/12/2017 Time Performed: 15:31:56 PTAGE: 81 years EKG: Atrial fibrillation with slow ventricular response with possible ventricular demand pacing Prolonged QT interval Low QRS voltage in the limb leads Abnormal ECG PREVIOUS TRACING : 06/07/2017 22.53 Compared to previous tracing, possible ventricular paced rh ythm is now less evident. DOCTOR: Gael Griffin Interpretating Date/Time 06/12/2017 20:53:00
[2017-06-13] VITALS (20 sets, daily range): BP systolic 94–119; BP diastolic 39–64; PULSE 49–124; RESP 17–21; TEMP 96–99.6; O2SAT 97–99
[2017-06-13] MEDS: LEVOTHYROXINE SODIUM 112 MCG TAB PO SCH (04:48)
[2017-06-13] MEDS: FLUTICASONE PROPIONATE 50 MCG/ACT 16 GM NASAL SPRAY NASAL PRN (05:00)
[2017-06-13 05:58] LABS: HEMATOCRIT 38.5 % (39.0-51.0); MEAN CELL VOLUME 89.7 FL (80.0-100.0); MEAN CORPUSCULAR HEMOGLOBIN 29.9 PG (27.0-34.0); MEAN CORPUSCULAR HGB CONC 33.3 % (32.0-36.0); PLATELET COUNT 99 TH/MM3 (150-450); RED CELL DISTRIBUTION WIDTH 13.7 % (11.6-17.2); WHITE BLOOD COUNT 4.6 TH/MM3 (4.0-11.0)
[2017-06-13 06:03] LABS: APTT (PATIENT) 47.1 SEC (24.3-30.1)
[2017-06-13] MEDS ORDERED: HEPARIN SODIUM - SQ 10,000 UNITS/ML VIAL ONE (06:09)
[2017-06-13] MEDS ORDERED: VANCOMYCIN HCL 1000 MG VIAL ONE (06:09)
[2017-06-13 06:10] LABS: REVIEW FLAG FINAL
[2017-06-13] MEDS ORDERED: ceFAZolin 2 GM PREMIX 50 ML ONE (06:10)
--- NOTE | 2017-06-13 07:15 | PD.CAR.PN ---
CVT Progress Note Subjective/Hospital Course: Had lengthy discussion with the patient and numerous family members regarding the clinical and angiographic findings in the setting of a left pneumonectomy and multi-vessel CAD withe severe pulmonary insufficiency. They understand the provided information including the possibility of being unable to graft at all depending upon intraoperative findings. Will proceed with OR. Objective: Vital Signs Date Time Temp Pulse Resp B/P (MAP) Pulse Ox O2 Delivery O2 Flow Rate FiO2 06/13/17 06:29 63 06/13/17 05:00 81 06/13/17 04:47 98.2 67 17 117/64 (81) 97 06/13/17 04:01 49 06/13/17 03:00 56 06/13/17 02:00 64 06/13/17 01:00 51 06/13/17 00:07 52 06/12/17 23:00 51 06/12/17 23:00 98.3 63 16 134/62 (86) 98 06/12/17 22:00 68 06/12/17 21:00 83 06/12/17 20:00 71 06/12/17 19:00 78 06/12/17 19:00 97.5 73 17 124/78 (93) 99 06/12/17 18:00 64 06/12/17 17:00 75 06/12/17 16:00 80 06/12/17 15:39 97.8 60 16 114/55 (74) 97 06/12/17 15:00 56 06/12/17 14:00 61 06/12/17 13:00 71 06/12/17 12:00 51 06/12/17 11:29 97.9 73 16 123/60 (81) 98 06/12/17 11:00 54 06/12/17 10:00 53 06/12/17 09:00 68 06/12/17 08:00 93 06/12/17 07:18 98.0 71 16 116/60 (78) 98 Labs: Laboratory Tests Test 06/13/17 04:44 White Blood Count 4.6 TH/MM3 (4.0-11.0) Red Blood Count 4.30 MIL/MM3 (4.50-5.90) Hemoglobin 12.8 GM/DL (13.0-17.0) Hematocrit 38.5 % (39.0-51.0) Mean Corpuscular Volume 89.7 FL (80.0-100.0) Mean Corpuscular Hemoglobin 29.9 PG (27.0-34.0) Mean Corpuscular Hemoglobin Concent 33.3 % (32.0-36.0) Red Cell Distribution Width 13.7 % (11.6-17.2) Platelet Count 99 TH/MM3 (150-450) Mean Platelet Volume 7.6 FL (7.0-11.0) Activated Partial Thromboplast Time 47.1 SEC (24.3-30.1) Result Diagram: 06/13/17 0444 06/09/17 0342 (1) Multi-vessel coronary artery stenosis (2) Chest pain (3) Left bundle branch block (4) Atrial fibrillation (5) History of pneumonectomy Problem Qualifiers (1) Chest pain: Qualified Codes: R07.9 - Chest pain, unspecified (2) Atrial fibrillation: Qualified Codes: I48.1 - Persistent atrial fibrillation Carmen Murry MD Jun 13, 2017 07:15
--- NOTE | 2017-06-13 08:37 | PD.CAR.PN ---
CVT Progress Note Subjective/Hospital Course: 81-year-old male, patient of Dr. Carrera, Dr. Daniel Torres and also Dr. Walker, who presented to the emergency room on the secondary to acute onset of chest discomfort. He woke up in the morning and he developed pain over the left anterior chest wall without radiation. The pain was about a 5 out of a 10. He denied any associated shortness of breath, diaphoresis. His called 03-18-. He was given some nitro spray and aspirin which relieved his chest pain. His EKG showed a left bundle branch block which is apparently newto him. His troponins were negative however, he was taken to the woven label designer by Dr. Walker which showed left main disease of 20%, proximal LAD 90%, mid distal LAD 90%, diagonal 10%, the circ 70%, the RCA 80%. 2-D echo showed EF 60% . PAST MEDICAL HISTORY His past medical history includes: 1. Sxh-eemnp-dgnh lung CA in 2009, followed by a left pneumonectomy and one round of chemotherapy. 2. Atrial fibrillation since 2009 that was prior treated with Coumadin, now on Xarelto, his last dose was on the . 3. Hyperlipidemia 4. Hypothyroidism. 5. 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 He did receive TPA at that time. 6. 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 He had radiation and chemotherapy. His oncologist is Dr. Rey. 06/13 for surgery today Objective: Vital Signs Date Time Temp Pulse Resp B/P (MAP) Pulse Ox O2 Delivery O2 Flow Rate FiO2 06/13/17 06:29 63 06/13/17 05:00 81 06/13/17 04:47 98.2 67 17 117/64 (81) 97 06/13/17 04:01 49 06/13/17 03:00 56 06/13/17 02:00 64 06/13/17 01:00 51 06/13/17 00:07 52 06/12/17 23:00 51 06/12/17 23:00 98.3 63 16 134/62 (86) 98 06/12/17 22:00 68 06/12/17 21:00 83 06/12/17 20:00 71 06/12/17 19:00 78 06/12/17 19:00 97.5 73 17 124/78 (93) 99 06/12/17 18:00 64 06/12/17 17:00 75 06/12/17 16:00 80 06/12/17 15:39 97.8 60 16 114/55 (74) 97 06/12/17 15:00 56 06/12/17 14:00 61 06/12/17 13:00 71 06/12/17 12:00 51 06/12/17 11:29 97.9 73 16 123/60 (81) 98 06/12/17 11:00 54 06/12/17 10:00 53 06/12/17 09:00 68 Labs: Laboratory Tests Test 06/13/17 04:44 White Blood Count 4.6 TH/MM3 (4.0-11.0) Red Blood Count 4.30 MIL/MM3 (4.50-5.90) Hemoglobin 12.8 GM/DL (13.0-17.0) Hematocrit 38.5 % (39.0-51.0) Mean Corpuscular Volume 89.7 FL (80.0-100.0) Mean Corpuscular Hemoglobin 29.9 PG (27.0-34.0) Mean Corpuscular Hemoglobin Concent 33.3 % (32.0-36.0) Red Cell Distribution Width 13.7 % (11.6-17.2) Platelet Count 99 TH/MM3 (150-450) Mean Platelet Volume 7.6 FL (7.0-11.0) Activated Partial Thromboplast Time 47.1 SEC (24.3-30.1) Result Diagram: 06/13/17 0444 06/09/17 0342 (1) Multi-vessel coronary artery stenosis (2) Chest pain (3) Left bundle branch block (4) Atrial fibrillation (5) History of pneumonectomy Problem Qualifiers (1) Chest pain: Qualified Codes: R07.9 - Chest pain, unspecified (2) Atrial fibrillation: Qualified Codes: I48.1 - Persistent atrial fibrillation Adelita Bach Jun 13, 2017 08:37
[2017-06-13] MEDS: ASPIRIN 81 MG CHEW TAB CHEW SCH (09:00)
[2017-06-13] MEDS: METOPROLOL TARTRATE 25 MG TAB PO SCH ×2 (09:00→20:42)
[2017-06-13] MEDS: SODIUM CHLORIDE 0.9% FLUSH 10 ML FLUSH IV FLUSH SCH ×3 (09:00→20:42)
[2017-06-13] MEDS ORDERED: DEXMEDETOMIDINE HCL 200 MCG/2 ML VIAL ONE (11:32)
[2017-06-13] MEDS ORDERED: ceFAZolin INJ 1,000 MG VIAL ONE (11:32)
[2017-06-13] MEDS ORDERED: DEXMEDETOMIDINE 200 MCG in NS 48 ML IV PRN (11:45)
[2017-06-13] MEDS ORDERED: DEXMEDETOMIDINE INJ 200 MCG in SODIUM CHLORIDE 0.9% INJ 50 ML IV PRN (12:00)
[2017-06-13] MEDS ORDERED: MAGNESIUM SULFATE INJ 2 GM in SODIUM CHLORIDE 0.9% INJ 100 ML IV PRN ×2 (12:00→13:00)
[2017-06-13] MEDS ORDERED: hydrALAZINE HCL 20 MG/ML VIAL IV PUSH PRN (12:00)
[2017-06-13] MEDS ORDERED: RESP: ALBUTEROL 2.5 MG/IPRATROPIUM 0.5 MG NEB (PRN) NEB ×2 (12:00→15:30)
--- NOTE | 2017-06-13 12:07 | PD.OP ---
cc: Mahesh Carrera MD; Carmen Murry MD; Wero Walker DO Operative Report Date of Surgery: Jun 13, 2017 Preoperative Diagnosis: Postoperative Diagnosis: Procedure: 1. Urgent Off-pump Coronary Artery Bypass Grafting x 2 with Left Internal Mammary Artery (OVIEDO) to the Left Anterior Descending (LAD), reverse saphenous vein graft to the Right Coronary Artery (RCA) 2. Circumferential Lysis of Myocardial Adhesions 3. Ultrasound-guided Dissection of the RCA 4. Left Leg Endoscopic Vein [place] 5. Intraoperative Vein Mapping Surgeon: Carmen Murry Extract Wringer(s): Stefania Acosta Operation and Findings: PREPROCEDURE DIAGNOSES 1. Severe Multi-Vessel Coronary Artery Disease. 2. Acute Myocardial Infarction (NSTEMI) 3. Left Main Disease 4. Mild Left Ventricular Dysfunction 5. Atrial Fibrillation 6. Severe Pulmonary Insufficiency - s/p L Pneumonectomy POSTPROCEDURE DIAGNOSES Same SURGICAL PROCEDURE 1. Urgent Off-pump Coronary Artery Bypass Grafting x 2 with Left Internal Mammary Artery (OVIEDO) to the Left Anterior Descending (LAD), reverse saphenous vein graft to the Right Coronary Artery (RCA) 2. Circumferential Lysis of Myocardial Adhesions 3. Ultrasound-guided Dissection of the RCA 4. Left Leg Endoscopic Vein [place] 5. Intraoperative Vein Mapping SURGEON Carmen Murry MD JAILER/TRAINING OFFICER IOANA Chun ANESTHESIA General endotracheal AIRCRAFT MECHANIC HUBERT Larios MD PREPARATION ChloraPrep. COUNTS Needle, sponge, and instrument counts were correct. DRAINS Two 32-Yi mediastinal tubes. COMPLICATIONS None. INDICATIONS FOR PROCEDURE The patient is a 81-year-old presenting with chest pain and multi-vessel coronary artery disease. He is being brought to the operating room for surgical revascularization therapy. PROCEDURE Patient was brought to the operating room and placed supine on the OR table. Following the induction of adequate general endotracheal anesthesia and placement of appropriate monitoring devices, intraoperative vein mapping was performed which revealed suitable-caliber conduit in right distal thigh with non -usable conduit elsewhere. The patient was then prepped and draped in standard sterile fashion. Next, 2500 units of intravenous heparin was given. The right greater saphenous vein was harvested endoscopically from the thigh. This appeared to be a useable-caliber conduit for one segment only. The remainder of the vein was sclerosed and non-usable. Simultaneously, a median sternotomy was performed and the left internal mammary artery dissected free off the posterior sternal table. The patient was systemically heparinized and anticoagulation monitored by serial ACT measurements. The internal mammary artery had good pulsatile flow in it and was a decent-caliber conduit. The pericardium was then divided in the midline. At this point, it was noted that the heart was densely adherent to the surrounding pericardium. The myocardial adhesions were lysed circumferentially and the heart exposed. Given his previous pneumonectomy, the heart was severely displaced to the left and rotated posteriorly making exposure very difficult. The ascending aorta was also displaced severely to the left. . At this point, all anastomoses were performed in a beating-heart fashion using the Maquet stabilizing system. The left internal mammary artery was anastomosed to the mid LAD (1.5 mm) in an end-to-side fashion using 7-0 Prolene. The next segment was anastomosed to the RCA (3 mm) in an end-to-side fashion using a running 7-0 Prolene. The RCA was deeply intramyocardial and the hand-held ultrasound probe was used to identify and dissect the vessel for exposure. The OM territory was not reachable due to the rotation of the heart as well as lack of conduit. The proximal anastomosis was then constructed to the ascending aorta in a running manner using 6-0 Prolene. All anastomotic sites were inspected and appeared to be hemostatic and patent. Protamine solution was given. Strict hemostasis was assured. The closure was undertaken. 2 chest tubes were placed. The pericardium was reapproximated in the midline. The sternum was approximated using sternal wires. The muscular and fascial layer were then closed in 3 layers. The endoscopic vein harvest site was closed in 2 layers. The patient tolerated the procedure well and was transferred to CVICU in stable condition. Carmen Murry MD Jun 13, 2017 12:07
[2017-06-13] MEDS: DOBUTamine PREMIX DRIP 250 ML IV SCH (12:45)
[2017-06-13] MEDS ORDERED: POTASSIUM CHLORIDE 20 MEQ CONTROLLED RELEASE TAB PO PRN ×2 (13:00)
[2017-06-13] MEDS ORDERED: POTASSIUM CHLOR 20 MEQ PREMIX 100 ML IV PRN ×3 (13:00)
[2017-06-13] MEDS ORDERED: LACTATED RINGER'S 1000 ML INJ 500 ML IV PRN (13:00)
[2017-06-13] MEDS ORDERED: CALCIUM CHLORIDE INJ 1 GM in SODIUM CHLORIDE 0.9% INJ 100 ML IV PRN (13:00)
[2017-06-13] MEDS ORDERED: DEXTROSE 50% IN WATER 50 ML VIAL(D50) IV PUSH PRN (13:00)
[2017-06-13] MEDS ORDERED: CLEVIDIPINE INJ 50 ML IV PRN (13:00)
[2017-06-13] MEDS ORDERED: DOPamine INJ PREMIX 500 ML IV PRN (13:00)
[2017-06-13] MEDS ORDERED: RESP: RACEPINEPHRINE 2.25% 0.5 ML NEB NEB PRN ×2 (13:00→15:30)
[2017-06-13] MEDS ORDERED: CALCIUM CHLORIDE 10% 1 GRAM/10 ML VIAL IV PUSH PRN (13:00)
--- NOTE | 2017-06-13 13:15 | RADRPT ---
EXAM DATE/TIME: 06/13/2017 12:37 [place] COMPARISON: CHEST SINGLE AP, June 07, 2017, 8:21. INDICATIONS : Post CABG MEDICAL HISTORY : Thyroid disease SURGICAL HISTORY : Left pneumonectomy ENCOUNTER: Initial ACUITY: 1 day PAIN SCORE: Non-responsive. LOCATION: Bilateral chest FINDINGS: A single portable frontal view of the chest shows interval median sternotomy. Tip of the endotracheal tube 6 cm cephalad to the kat. Right sided central line. The tip is obscured by overlying structu res. Nasogastric tube tip just past the GE junction. Bilateral thoracostomy tubes. Significant volume loss involving the left hemithorax without aerated lung being observed. The right lung is clear. No pneumothorax. No effusions. Heart is at the upper limits of normal in terms of size. CONCLUSION: 1. Life support lines as detailed above. 2. Significant volume loss involving the left hemithorax. Torin Smith Jr., MD on June 13, 2017 at 13:12 Board Certified Radiologist. This report was verified electronically.
[2017-06-13] MEDS ORDERED: SODIUM BICARBONATE 8.4% SOLN 50 MEQ/50 ML VIAL IV PUSH PRN ×2 (13:30)
[2017-06-13] MEDS ORDERED: PHENYLEPHRINE INJ 40 MG in DEXTROSE 5% IN WATE 500 ML INJ 496 ML IV PRN ×2 (13:30)
[2017-06-13] MEDS ORDERED: INSULIN REGULAR (IV INFUSION) 100 UNITS in SODIUM CHLORIDE 0.9% INJ 99 ML IV PRN (13:30)
[2017-06-13] MEDS ORDERED: SODIUM CHLORIDE 0.9% FLUSH 10 ML FLUSH IV FLUSH PRN (13:30)
[2017-06-13] MEDS: ACETAMINOPHEN 1000 MG/100 ML 100 ML IV SCH ×2 (13:53→19:27)
[2017-06-13] MEDS ORDERED: ACETAMINOPHEN 325 MG TAB PO PRN (14:00)
[2017-06-13] MEDS ORDERED: ALBUMIN 5% INJ 250 ML IV PRN (14:00)
[2017-06-13] MEDS ORDERED: NITROGLYCERIN-D5W 50 MG/250 ML 250 ML IV PRN (14:00)
[2017-06-13] MEDS ORDERED: MEPERIDINE HCL 25 MG/ML VIAL IV PUSH PRN (14:00)
[2017-06-13] MEDS ORDERED: Post-op Orders (for Pharmacy) MISC OTHER ONE (14:00)
[2017-06-13] MEDS ORDERED: ACETAMINOPHEN 650 MG SUPP RECTAL PRN (14:00)
[2017-06-13] MEDS ORDERED: ONDANSETRON HCL 4 MG/2 ML VIAL IV PUSH PRN (14:00)
[2017-06-13] MEDS ORDERED: MORPHINE SULFATE 4 MG/ML INJ IV PUSH PRN (14:00)
[2017-06-13] MEDS ORDERED: KETOROLAC TROMETHAMINE 30 MG/ML (IVP) VIAL IV PUSH PRN (14:00)
--- NOTE | 2017-06-13 15:33 | PD.CARD.PN ---
Subjective Subjective Remarks Post-op Extubated, still lethargic Low dose Dopamine for bradycardia/mild hypotension Objective Medications Current Medications Medications (Trade) Dose Ordered Sig/Rubens Route Start Time Stop Time Status Last Admin (Synthroid) 112 mcg DAILY@0600 PO 06/08/17 06:00 06/13/17 04:48 (Lopressor) 25 mg BID PO 06/07/17 10:30 06/12/17 20:38 (Pravachol) 20 mg HS PO 06/07/17 21:00 06/12/17 20:38 (Tylenol) 500 mg Q4H PRN PO 06/07/17 09:45 ([place] 7.5-325 Mg) 1 tab Q4H PRN PO 06/07/17 09:45 Heparin Sodium/ Dextrose 250 ml @ 10 mls/hr TITRATE PRN IV 06/07/17 10:15 06/12/17 22:15 (Nitrostat Sl) 0.4 mg Q5M PRN SL 06/07/17 11:15 (Morphine Inj) 2 mg Q30M PRN IV PUSH 06/07/17 11:30 Papaverine HCl 60 mg/Nitroglycerin 100 mcg/Diltiazem HCl 100 mg/Sodium Chloride 100 ml @ 0 mls/hr CONCRETE SPREADER IRRIGATION 06/08/17 13:15 06/15/17 13:14 06/13/17 08:53 Cefazolin Sodium 500 mg/Sodium Chloride 505 ml @ 0 mls/hr CONCRETE SPREADER IRRIGATION 06/08/17 13:15 06/15/17 13:14 06/13/17 08:52 Cefazolin Sodium/ Dextrose 50 ml @ 150 mls/hr CONCRETE SPREADER IV 06/08/17 13:15 06/15/17 13:14 06/13/17 07:58 (Lopressor) 12.5 mg CONCRETE SPREADER PO 06/08/17 13:15 06/15/17 13:14 06/13/17 04:50 (Hibiclens 4% Top Soln) 1 applic CONCRETE SPREADER TOPICAL 06/08/17 13:15 06/15/17 13:14 (Flonase Edin Spr) 1 spray BID PRN NASAL 06/11/17 15:00 06/13/17 05:00 (NS Flush) 2 ml BID IV FLUSH 06/13/17 21:00 (NS Flush) 2 ml UNSCH PRN IV FLUSH 06/13/17 13:30 Dexmedetomidine HCl 200 mcg/ Sodium Chloride 52 ml @ 5.09 mls/hr TITRATE PRN IV 06/13/17 12:00 Nitroglycerin/ Dextrose 250 ml @ 1.5 mls/hr TITRATE PRN IV 06/13/17 14:00 Dobutamine HCl/ Dextrose 250 ml @ 14.7 mls/hr Q17H1M IV 06/13/17 12:45 Dopamine HCl/ Dextrose 500 ml @ 11.025 mls/ hr TITRATE PRN IV 06/13/17 13:00 06/13/17 12:52 Phenylephrine HCl 40 mg/Dextrose 500 ml @ 30 mls/hr TITRATE PRN IV 06/13/17 13:30 Clevidipine 50 ml @ 2 mls/hr TITRATE PRN IV 06/13/17 13:00 Albumin Human 250 ml @ 250 mls/hr UNSCH PRN IV 06/13/17 14:00 Lactated Ringer's 500 ml @ 500 mls/hr Q1H PRN IV 06/13/17 13:00 06/13/17 12:52 (Aspirin Chew) 81 mg DAILY PO 06/14/17 09:00 (Plavix) 75 mg DAILY PO 06/14/17 09:00 (Protonix) 40 mg DAILY@06 PO 06/14/17 06:00 (Cordarone) 200 mg Q12HR PO 06/13/17 21:00 (Tylenol) 650 mg Q4H PRN PO 06/13/17 14:00 (Tylenol Supp) 650 mg Q4H PRN RECTAL 06/13/17 14:00 Acetaminophen 100 ml @ 400 mls/hr Q6H IV 06/13/17 14:00 06/14/17 08:14 06/13/17 13:53 (Morphine Inj) 1 mg Q10M PRN IV PUSH 06/13/17 14:00 (Demerol Inj) 12.5 mg Q4H PRN IV PUSH 06/13/17 14:00 ([place] 5-325 Mg) 1 tab Q3H PRN PO 06/13/17 12:00 UNV ([place] 5-325 Mg) 2 tab Q3H PRN PO 06/13/17 12:00 UNV (Toradol Inj) 15 mg Q6H PRN IV PUSH 06/13/17 14:00 06/15/17 13:59 (fentaNYL INJ) 25 mcg Q1H PRN IV PUSH 06/13/17 13:00 (Zofran Inj) 4 mg Q6H PRN IV PUSH 06/13/17 14:00 (Apresoline Inj) 10 mg Q4H PRN IV PUSH 06/13/17 12:00 UNV (Lopressor Inj) 2.5 mg Q1H PRN IV PUSH 06/13/17 13:00 Potassium Chloride 100 ml @ 50 mls/hr UNSCH PRN IV 06/13/17 13:00 Potassium Chloride 100 ml @ 50 mls/hr UNSCH PRN IV 06/13/17 13:00 (KCl) 20 meq UNSCH PRN PO 06/13/17 13:00 (KCl) 40 meq UNSCH PRN PO 06/13/17 13:00 Magnesium Sulfate 2 gm/Sodium Chloride 104 ml @ 100 mls/hr UNSCH PRN IV 06/13/17 12:00 Magnesium Sulfate 2 gm/Sodium Chloride 104 ml @ 50 mls/hr UNSCH PRN IV 06/13/17 13:00 (Calcium Chloride Inj) 0.5 gm UNSCH PRN IV PUSH 06/13/17 13:00 Insulin Human Regular 100 units/ Sodium Chloride 100 ml @ 3 mls/hr TITRATE PRN IV 06/13/17 13:30 (D50w (Vial) Inj) 50 ml UNSCH PRN IV PUSH 06/13/17 13:00 Cefazolin Sodium/ Dextrose 50 ml @ 100 mls/hr Q8H IV 06/13/17 16:00 06/15/17 00:29 (Sodium Bicarbonate 8.4% Inj) 50 meq UNSCH PRN IV PUSH 06/13/17 13:30 (Sodium Bicarbonate 8.4% Inj) 100 meq UNSCH PRN IV PUSH 06/13/17 13:30 (Duoneb Neb) 1 ampule Q6HR NEB NEB 06/13/17 16:00 (Duoneb Neb) 1 ampule Q2HR NEB PRN NEB 06/13/17 12:00 (Duoneb Neb) 1 ampule Q6HR NEB NEB 06/13/17 16:00 (Duoneb Neb) 1 ampule Q2HR NEB PRN NEB 06/13/17 15:30 (Racepinephrine 2.25% Neb) 0.5 ml UNSCH X1 PRN NEB 06/13/17 15:30 06/15/17 15:29 Vital Signs / I&O Vital Signs Date Time Temp Pulse Resp B/P (MAP) Pulse Ox O2 Delivery O2 Flow Rate FiO2 06/13/17 15:12 96.0 92 18 100/60 (73) 98 06/13/17 14:37 19 06/13/17 14:20 98 Nasal Cannula 4.00 06/13/17 14:20 98 Nasal Cannula 4 06/13/17 13:57 97.8 06/13/17 13:15 59 06/13/17 13:14 98 Mechanical Ventilator 50 06/13/17 13:08 50 06/13/17 13:07 97.8 53 21 119/39 (65) 98 06/13/17 12:52 59 90/62 06/13/17 12:30 99 50 06/13/17 06:29 63 06/13/17 05:00 81 06/13/17 04:47 98.2 67 17 117/64 (81) 97 06/13/17 04:01 49 06/13/17 03:00 56 06/13/17 02:00 64 06/13/17 01:00 51 06/13/17 00:07 52 06/12/17 23:00 51 06/12/17 23:00 98.3 63 16 134/62 (86) 98 06/12/17 22:00 68 06/12/17 21:00 83 06/12/17 20:00 71 06/12/17 19:00 78 06/12/17 19:00 97.5 73 17 124/78 (93) 99 06/12/17 18:00 64 06/12/17 17:00 75 06/12/17 16:00 80 06/12/17 15:39 97.8 60 16 114/55 (74) 97 I/O 06/12/17 06/12/17 06/12/17 06/13/17 06/13/17 06/13/17 07:00 15:00 23:00 07:00 15:00 23:00 Intake Total 353 ml 844 ml 352 ml 3910 ml 35 ml Output Total 400 ml 450 ml 1400 ml Balance -47 ml 844 ml -98 ml 2510 ml 35 ml Intake Oral 240 ml 720 ml 240 ml IV Total 113 ml 124 ml 112 ml 610 ml 35 ml Autotransfusion 500 ml Other 2800 ml Output Urine Total 400 ml 450 ml 400 ml Estimated Blood Loss 1000 ml # Voids 2 3 Physical Exam GENERAL: NAD SKIN: Warm and dry. HEAD: Atraumatic. Normocephalic. EYES: Pupils equal and round. No scleral icterus. No injection or drainage. ENT: No nasal bleeding or discharge. Mucous membranes pink and moist. NECK: Trachea midline. No JVD. CARDIOVASCULAR: Irregularly irregular RESPIRATORY: No accessory muscle use. Decreased breath sounds left side GASTROINTESTINAL: Abdomen soft, non-tender, nondistended. Hepatic and splenic margins not palpable. MUSCULOSKELETAL: Extremities without clubbing, cyanosis, or edema. No obvious deformities. NEUROLOGICAL: Lethargic initially post-op Laboratory Laboratory Tests Test 06/13/17 04:44 White Blood Count 4.6 TH/MM3 Red Blood Count 4.30 MIL/MM3 Hemoglobin 12.8 GM/DL Hematocrit 38.5 % Mean Corpuscular Volume 89.7 FL Mean Corpuscular Hemoglobin 29.9 PG Mean Corpuscular Hemoglobin Concent 33.3 % Red Cell Distribution Width 13.7 % Platelet Count 99 TH/MM3 Mean Platelet Volume 7.6 FL Activated Partial Thromboplast Time 47.1 SEC Assessment and Plan Problem List: (1) Multi-vessel coronary artery stenosis ICD Codes: I25.10 - Atherosclerotic heart disease of [place] coronary artery without angina pectoris (2) Chest pain ICD Codes: R07.9 - Chest pain, unspecified Status: Acute (3) Left bundle branch block ICD Codes: I44.7 - Left bundle-branch block, unspecified Status: Acute (4) Atrial fibrillation ICD Codes: I48.91 - Atrial fibrillation Status: Acute (5) History of pneumonectomy ICD Codes: Z90.2 - Acquired absence of lung [part of] Assessment and Plan 1) MVCAD s/p CABGx2 POD #0 OVIEDO to LAD SVG to RCA Residual LCx disease Will plan to treat medically, if further concern/symptoms then will consider stenting 2) EF 60-65%, mild LVH, mod-sev TR 3) Dopamine low dose, will wean as possible Problem Qualifiers (1) Chest pain: Qualified Codes: R07.9 - Chest pain, unspecified (2) Atrial fibrillation: Qualified Codes: I48.1 - Persistent atrial fibrillation Wero Walker DO Jun 13, 2017 15:32
[2017-06-13] MEDS: ceFAZolin 2 GM PREMIX 50 ML IV SCH ×2 (16:00→23:25)
[2017-06-13] MEDS: RESP: ALBUTEROL 2.5 MG/IPRATROPIUM 0.5 MG NEB (SCH) NEB ×4 (16:00→21:45)
--- NOTE | 2017-06-13 16:19 | MB ---
cc: SERAFIN BAKER M.D. DATE OF CONSULTATION 06/13/2017 DATE OF 1935 HISTORY OF THE PRESENT ILLNESS The patient is an 89-year-old male with a past medical history of atrial fibrillation on Xarelto, lung cancer status post left pneumonectomy in 2009, CVA, colon cancer, hypothyroidism. He was admitted to [facility] on June 07 under hospitalist service for acute coronary syndrome / chest pain. Echocardiogram was performed which showed an ejection fraction of 60-65% and moderate pulmonary hypertension with a PA pressure of 54 mmHg. The patient was found to have new left bundle branch block and he underwent cardiac catheterization by Dr. Walker on June 08 which showed multivessel coronary disease. He was subsequently seen by Dr. Murry from thoracic surgery and today he underwent off-pump CABG x2 and left leg endoscopic vein harvest. In the OR the patient received 2.0 liters of crystalloids. Critical care medicine was consulted for critical care management. He was extubated this afternoon and when seen the patient was on 4 liters oxygen with saturation of 98%. In addition the patient is on dopamine at 3 mics with a current blood pressure 103/56, pulse of 79. The patient is also on 0.1 units of Precedex. Chest x-ray postop showed left pneumonectomy, clear right lung. PAST MEDICAL HISTORY Significant for: 1. Atrial fibrillation. 2. Hyperlipidemia. 3. Hypothyroidism. 4. Lung cancer. 5. Colon cancer. 6. CVA. PAST SURGICAL HISTORY 1. Previous left lung pneumonectomy in 2009. 2. Previous partial colectomy with colostomy placement and reversal. 3. Cardiac catheterization on June 08. ALLERGIES NO KNOWN DRUG ALLERGIES. MEDICATIONS Reported medications include: 1. Synthroid. 2. Toprol. 3. Zocor. 4. Xarelto. FAMILY HISTORY No history of coronary artery disease or sudden within the family. SOCIAL HISTORY Ex-smoker, quit in 2009. Social drinker. REVIEW OF SYSTEMS As per HPI. PHYSICAL EXAMINATION GENERAL: An 81-year-old male lying in bed in no acute distress. Looks comfortable. VITAL SIGNS: Afebrile, pulse of 79, blood pressure 103/56, sats 99%. HEENT: Atraumatic, normocephalic. Pupils equal, round and reactive to light and accommodation, extraocular muscles are intact. Conjunctivae pink. Nonicteric sclerae. Oral mucosa within normal. NECK: Supple. No JVD, adenopathy or thyromegaly. Trachea midline. CARDIOVASCULAR: Irregularly irregular. Normal S1-S2. No murmurs, rubs or gallops noted. LUNGS: Diminished breath sounds on the left. ABDOMEN: Soft, nontender, no distension. Positive bowel sounds. EXTREMITIES: No clubbing, cyanosis or edema. NEUROLOGIC: No focal sensory deficits. LABORATORY DATA Laboratory data from June 09 showed a sodium 140, potassium 4.1, chloride 107, CO2 24, BUN 13, creatinine 0.7, glucose of 109. WBC 4.6, hemoglobin 12.8, hematocrit 38, platelet count of 99. IMAGING Chest x-ray showed left pneumonectomy, right lung clear. IMPRESSION 1. Status post off pump coronary artery bypass graft x2. 2. Coronary artery disease. 3. Atrial fibrillation on Xarelto. 4. History of lung CA and left pneumonectomy in 2009. 5. History of CVA. 6. History of colon CA. RECOMMENDATIONS 1. Monitor neuro status closely and avoid any sedatives. Will turn off Precedex as he is only on 0.1 units. 2. Wean down oxygen as tolerated and maintain sats above 92%. 3. Bronchodilators in the form of DuoNeb q.6h plus q.2h as needed for shortness of breath. Incentive spirometry q.1h while awake. 4. Chest x-ray postop showed left pneumonectomy and clear right lung. 5. Monitor heart rate and blood pressure closely and maintain MAP greater than 65 mmHg. Continue with cardiac meds as ordered. He is currently on amiodarone 200 mg p.o. q. 12-hour. Aspirin 81 mg daily. Pravachol 20 mg q.h.s. and Plavix 75 mg daily. The patient is status post cardiac catheterization on June 08 which showed multivessel coronary artery disease and the echocardiogram showed EF of 60-65% with moderate pulmonary hypertension. PA pressure 54 mmHg. 6. Monitor renal function Is and Os and electrolyte replacement per protocol. Continue with n.p.o. for now and will start heart healthy diet once cleared by thoracic surgery. 7. Monitor for signs of infections which include fever and WBC. Panculture if spikes a fever. Perioperative antibiotics per surgery. 8. Monitor chest tube drainage. 9. Monitor CBC. 10. Sliding scale insulin with Accu-Cheks for glycemic control. Also the patient is on Synthroid 112 mcg daily for underlying history of hypothyroidism. 11. GI prophylaxis with Pepcid 10 mg q. 12 and DVT prophylaxis with SCDs. Start chemical anticoagulation prophylaxis once cleared by thoracic surgery. Patient is extubated will sign off unless active issues arises overnight. MD WILMER Weeks/PATT /3:31 PM /3:50 PM MTDD
[2017-06-13 16:26] LABS: AUTOMATED NEUTROPHIL # 10.9 TH/MM3 (1.8-7.7); BASOPHIL % 0.2 % (0.0-2.0); EOSINOPHIL % 0.1 % (0.0-4.0); HEMATOCRIT 33.3 % (39.0-51.0); HEMO FLAGS DIFF FINAL; LYMPH % 4.8 % (9.0-44.0); LYMPHOCYTE # 0.6 TH/MM3 (1.0-4.8); MEAN CELL VOLUME 88.5 FL (80.0-100.0); MEAN CORPUSCULAR HEMOGLOBIN 29.2 PG (27.0-34.0); MONO % 6.4 % (0.0-8.0); NEUT % 88.5 % (16.0-70.0); PLATELET COUNT 102 TH/MM3 (150-450); RED BLOOD COUNT 3.76 MIL/MM3 (4.50-5.90); RED CELL DISTRIBUTION WIDTH 13.8 % (11.6-17.2); WHITE BLOOD COUNT 12.4 TH/MM3 (4.0-11.0)
[2017-06-13 16:44] LABS: BICARBONATE 26.2 MEQ/L (21.0-32.0); MAGNESIUM 2.3 MG/DL (1.5-2.5); POTASSIUM 4.4 MEQ/L (3.5-5.1)
[2017-06-13] MEDS: PRAVASTATIN SOD 20 MG TAB PO SCH (20:42)
[2017-06-13] MEDS: AMIODARONE 200 MG TAB PO SCH (20:42)
[2017-06-13] MEDS: METOPROLOL TARTRATE 5 MG/5 ML VIAL IV PUSH PRN (23:25)
[2017-06-14] VITALS (27 sets, daily range): BP systolic 95–131; BP diastolic 54–80; PULSE 92–134; RESP 16–20; TEMP 98.1–99.2; O2SAT 96–99
[2017-06-14] MEDS: ACETAMINOPHEN 1000 MG/100 ML 100 ML IV SCH ×2 (02:00→08:01)
[2017-06-14] MEDS: RESP: ALBUTEROL 2.5 MG/IPRATROPIUM 0.5 MG NEB (SCH) NEB ×4 (03:27→20:50)
[2017-06-14 04:10] LABS: MEAN CORPUSCULAR HEMOGLOBIN 29.8 PG (27.0-34.0); MEAN CORPUSCULAR HGB CONC 33.9 % (32.0-36.0); PLATELET COUNT 112 TH/MM3 (150-450); RED BLOOD COUNT 3.53 MIL/MM3 (4.50-5.90); REVIEW FLAG FINAL
[2017-06-14 04:42] LABS: BICARBONATE 25.2 MEQ/L (21.0-32.0); POTASSIUM 4.6 MEQ/L (3.5-5.1)
--- NOTE | 2017-06-14 05:21 | RADRPT ---
EXAM DATE/TIME: 06/14/2017 04:03 [facility] COMPARISON: CHEST SINGLE AP, June 07, 2017, 8:21. CT THORAX W/O CONTRAST, June 08, 2017, 12:42. CHEST S MARYJO AP, June 13, 2017, 12:37. INDICATIONS : Short of breath. MEDICAL HISTORY : Thyroid disease SURGICAL HISTORY : Left pneumonectomy. ENCOUNTER: Subsequent ACUITY: 3 days PAIN SCORE: 0/10 LOCATION: Bilateral chest FINDINGS: The patient is status post left pneumonectomy. There is some air seen within the left chest cavity. T his appearance is unchanged from the most recent chest x-ray. It is changed from the older chest x-ra y from 06/07/[address] examination. There is shift of the heart and mediastinal shift tow ards the left. The right lung appears grossly clear. There is a right internal jugular central line i n place. There are 2 chest tubes seen over the medial aspect of the chest and right upper lung. 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 This report was verified electronically.
[2017-06-14] MEDS: DOBUTamine PREMIX DRIP 250 ML IV SCH (05:46)
[2017-06-14] MEDS: LEVOTHYROXINE SODIUM 112 MCG TAB PO SCH (05:54)
[2017-06-14] MEDS: PANTOPRAZOLE SOD 40 MG DELAYED RELEASE TAB PO SCH (05:54)
[2017-06-14] MEDS: METOPROLOL TARTRATE 5 MG/5 ML VIAL IV PUSH PRN (05:59)
[2017-06-14] MEDS: ceFAZolin 2 GM PREMIX 50 ML IV SCH ×2 (08:01→17:13)
[2017-06-14] MEDS ORDERED: GLUCAGON 1 MG/ML VIAL OTHER PRN (08:45)
[2017-06-14] MEDS ORDERED: BISACODYL 10 MG SUPP RECTAL PRN (08:45)
[2017-06-14] MEDS ORDERED: DEXTROSE 50% IN WATER 50 ML VIAL(D50) IV PUSH PRN (08:45)
[2017-06-14] MEDS ORDERED: SOD PHOSPHATE/SOD BIPHOSPHATE (ADULT) ENEMA 133ML RECTAL PRN (08:45)
[2017-06-14] MEDS: SODIUM CHLORIDE 0.9% FLUSH 10 ML FLUSH IV FLUSH SCH ×2 (08:49→20:12)
[2017-06-14] MEDS: CLOPIDOGREL 75 MG TAB PO SCH (08:49)
[2017-06-14] MEDS: AMIODARONE 200 MG TAB PO SCH ×2 (08:49→20:10)
[2017-06-14] MEDS: ASPIRIN 81 MG CHEW TAB PO SCH (08:49)
[2017-06-14] MEDS: METOPROLOL TARTRATE 25 MG TAB PO SCH ×2 (08:50→19:35)
[2017-06-14] MEDS ORDERED: LEVOTHYROXINE SODIUM 112 MCG TAB PO SCH (09:00)
[2017-06-14] MEDS ORDERED: PRAVASTATIN SOD 20 MG TAB PO SCH (09:00)
[2017-06-14] MEDS ORDERED: METOPROLOL TARTRATE 25 MG TAB PO SCH (09:00)
[2017-06-14] MEDS ORDERED: PILL SPLITTER OTHER PRN (09:15)
[2017-06-14] MEDS: MAGNESIUM HYDROXIDE SUSP 30 ML CUP PO SCH (09:45)
[2017-06-14] MEDS: MULTIVITAMINS/MINERALS THERAPEUTIC TAB PO SCH (09:46)
[2017-06-14] MEDS: INSULIN ASPART SUPPLEMENTAL SCALE SQ SCH ×4 (10:00→22:00)
--- NOTE | 2017-06-14 10:44 | RSPPFT ---
DATE OF PROCEDURE: 06/08/17 COMMENTS: Spirometry with FVC of 1.3 predicted 3.8, FEV1 of 0.9 predicted 2.9, FEV1/FVC ratio 70% predicted 77%. The FEF 25-75 is 30% of predicted. IMPRESSION: On the basis of the above, although patient may have some obstructive defect, lung volumes would be helpful to rule out associated restrictive lung defect and these should be measured if clinically indicated.
--- NOTE | 2017-06-14 17:03 | EKG ---
Date Performed: 06/14/2017 Time Performed: 04:20:52 PTAGE: 81 years EKG: Atrial fibrillation with rapid ventricular response with non-sustained ventricular tachycar lauro. Ant/septal and lateral T wave changes are nonspecific Low QRS voltages in limb leads When compar edt o previous tracing, the patient is now Tachycardic. Abnormal ECG PREVIOUS TRACING : 06/12/2017 15.31 DOCTOR: Roxanne Perez Interpretating Date/Time 06/14/2017 17:02:52
[2017-06-14] MEDS ORDERED: SODIUM CHLORID 0.9% 500 ML INJ 500 ML IV ONE (18:00)
--- NOTE | 2017-06-14 18:18 | PD.CAR.PN ---
CVT Progress Note Subjective/Hospital Course: 81-year-old male, patient of Dr. Carrera, Dr. Daniel Torres and also Dr. Walker, who presented to the emergency room on the secondary to acute onset of chest discomfort. He woke up in the morning and he developed pain over the left anterior chest wall without radiation. The pain was about a 5 out of a 10. He denied any associated shortness of breath, diaphoresis. His called 03-18-. He was given some nitro spray and aspirin which relieved his chest pain. His EKG showed a left bundle branch block which is apparently newto him. His troponins were negative however, he was taken to the cathode washer by Dr. Walker which showed left main disease of 20%, proximal LAD 90%, mid distal LAD 90%, diagonal 10%, the circ 70%, the RCA 80%. 2-D echo showed EF 60% . PAST MEDICAL HISTORY His past medical history includes: 1. Jck-ygimt-gnsm lung CA in 2009, followed by a left pneumonectomy and one round of chemotherapy. 2. Atrial fibrillation since 2009 that was prior treated with Coumadin, now on Xarelto, his last dose was on the . 3. Hyperlipidemia 4. Hypothyroidism. 5. 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 He did receive TPA at that time. 6. 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 He had radiation and chemotherapy. His oncologist is Dr. Rey. 06/13 surgery : 1. Urgent Off-pump Coronary Artery Bypass Grafting x 2 with Left Internal Mammary Artery (OVIEDO) to the Left Anterior Descending (LAD), reverse saphenous vein graft to the Right Coronary Artery (RCA) 2. Circumferential Lysis of Myocardial Adhesions 3. Ultrasound-guided Dissection of the RCA 4. Left Leg Endoscopic Vein [place] 2800crystalloid, 500cc cell saver, 06/14 up in chair, on 2 liter nasal cannula pain controlled no pressors, CXR noted will transfer to stepdown Objective: GENERAL: SKIN: Warm and dry. prevena to chest, incision intact to left leg HEAD: Normocephalic. EYES: No scleral icterus. No injection or drainage. NECK: Supple, trachea midline. No JVD or lymphadenopathy. CARDIOVASCULAR: Regular rate and rhythm without murmurs, gallops, or rubs. RESPIRATORY: Breath sounds equal bilaterally. No accessory muscle use. no breath sounds on left right chest tube in place, drained 150 cc/ 12 hrs GASTROINTESTINAL: Abdomen soft, non-tender, nondistended. MUSCULOSKELETAL: No cyanosis, or edema. BACK: Nontender without obvious deformity. No CVA tenderness. Vital Signs Date Time Temp Pulse Resp B/P (MAP) Pulse Ox O2 Delivery O2 Flow Rate FiO2 06/14/17 15:30 96 Room Air 06/14/17 15:30 98.2 105 20 119/80 (93) 96 06/14/17 13:00 100 06/14/17 12:00 94 06/14/17 11:45 98 Room Air 06/14/17 11:24 98.1 104 18 128/66 (86) 97 Arterial Line 06/14/17 11:00 98 06/14/17 10:00 92 06/14/17 09:00 106 06/14/17 08:11 110 06/14/17 08:11 99 2.00 06/14/17 08:04 99 2.00 06/14/17 08:04 110 06/14/17 07:43 98.4 109 20 97 131/64 (86) 06/14/17 07:10 99 Nasal Cannula 4.00 06/14/17 06:00 98 06/14/17 06:00 99 06/14/17 04:00 130 06/14/17 04:00 99 06/14/17 03:00 99.2 109 20 95/65 (75) 97 116/54 (74) 06/14/17 00:00 99 06/14/17 00:00 98 06/13/17 23:00 99.6 124 20 94/56 (69) 99 116/56 (76) 06/13/17 20:20 97 Nasal Cannula 4.00 06/13/17 20:00 91 06/13/17 20:00 99 Nasal Cannula 2.00 06/13/17 20:00 18 06/13/17 19:00 97.9 91 18 103/59 (74) 99 99/52 (68) Result Diagram: 06/14/17 0335 06/14/17 0335 (1) Multi-vessel coronary artery stenosis (2) S/P CABG x 2 Plan: ASA, statin , BB resume xarelto when chest tubes out (3) Left bundle branch block (4) Atrial fibrillation Plan: resume xarelto when chest tubes out (5) History of pneumonectomy Plan: pulm toileting Problem Qualifiers (1) Atrial fibrillation: Qualified Codes: I48.1 - Persistent atrial fibrillation Adelita Bach Jun 14, 2017 18:18
--- NOTE | 2017-06-14 19:31 | PD.CARD.PN ---
Subjective Subjective Remarks Patient was seen earlier today around noon, late entry note Doing well, sleeping but awakes and feeling well Up and ambulating earlier in the day Objective Medications Current Medications Medications (Trade) Dose Ordered Sig/Rubens Route Start Time Stop Time Status Last Admin (Synthroid) 112 mcg DAILY@0600 PO 06/08/17 06:00 06/14/17 05:54 (Pravachol) 20 mg HS PO 06/07/17 21:00 06/13/17 20:42 (Tylenol) 500 mg Q4H PRN PO 06/07/17 09:45 (Flonase Edin Spr) 1 spray BID PRN NASAL 06/11/17 15:00 06/13/17 05:00 (NS Flush) 2 ml BID IV FLUSH 06/13/17 21:00 06/14/17 08:49 (NS Flush) 2 ml UNSCH PRN IV FLUSH 06/13/17 13:30 06/14/17 05:59 (Aspirin Chew) 81 mg DAILY PO 06/14/17 09:00 06/14/17 08:49 (Plavix) 75 mg DAILY PO 06/14/17 09:00 06/14/17 08:49 (Protonix) 40 mg DAILY@06 PO 06/14/17 06:00 06/14/17 05:54 (Cordarone) 200 mg Q12HR PO 06/13/17 21:00 06/14/17 08:49 (Tylenol) 650 mg Q4H PRN PO 06/13/17 14:00 (Valentine 5-325 Mg) 1 tab Q3H PRN PO 06/13/17 16:00 (Valentine 5-325 Mg) 2 tab Q3H PRN PO 06/13/17 16:00 (Toradol Inj) 15 mg Q6H PRN IV PUSH 06/13/17 14:00 06/15/17 13:59 (Zofran Inj) 4 mg Q6H PRN IV PUSH 06/13/17 14:00 Cefazolin Sodium/ Dextrose 50 ml @ 100 mls/hr Q8H IV 06/13/17 16:00 06/15/17 00:29 06/14/17 17:13 (Duoneb Neb) 1 ampule Q2HR NEB PRN NEB 06/13/17 12:00 (Duoneb Neb) 1 ampule Q6HR WHILE AWAKE NEB NEB 06/14/17 14:00 06/16/17 13:59 06/14/17 13:43 (Colace) 100 mg BID PO 06/14/17 21:00 (Theragran M Tab) 1 tab DAILY PO 06/14/17 09:00 06/14/17 09:46 (Milk Of Magnesia Liq) 30 ml DAILY PO 06/14/17 09:00 06/14/17 09:45 (Dulcolax Supp) 10 mg UNSCH PRN RECTAL 06/14/17 08:45 (Miralax) 17 gm DAILY PO 06/15/17 09:00 (Senokot) 8.6 mg HS PO 06/14/17 21:00 (Fleets Enema (Adult)) 118 ml UNSCH PRN RECTAL 06/14/17 08:45 (NovoLOG SUPPLEMENTAL SCALE) 1 02,06,10,14,18,22 SQ 06/14/17 10:00 06/15/17 06:01 06/14/17 18:32 (D50w (Vial) Inj) 50 ml UNSCH PRN IV PUSH 06/14/17 08:45 (Glucagon Inj) 1 mg UNSCH PRN OTHER 06/14/17 08:45 (Pill Splitter) 1 ea UNSCH PRN OTHER 06/14/17 09:15 (NovoLOG SUPPLEMENTAL SCALE) 1 ACHS SLIDING SCALE SQ 06/15/17 12:00 (Lopressor) 12.5 mg BID PO 06/14/17 21:00 Vital Signs / I&O Vital Signs Date Time Temp Pulse Resp B/P (MAP) Pulse Ox O2 Delivery O2 Flow Rate FiO2 06/14/17 12:00 94 06/14/17 11:45 98 Room Air 06/14/17 11:24 98.1 104 18 128/66 (86) 97 Arterial Line 06/14/17 11:00 98 06/14/17 10:00 92 06/14/17 09:00 106 06/14/17 08:11 110 06/14/17 08:11 99 2.00 06/14/17 08:04 99 2.00 06/14/17 08:04 110 06/14/17 07:43 98.4 109 20 97 131/64 (86) 06/14/17 07:10 99 Nasal Cannula 4.00 06/14/17 06:00 98 06/14/17 06:00 99 06/14/17 04:00 130 06/14/17 04:00 99 06/14/17 03:00 99.2 109 20 95/65 (75) 97 116/54 (74) 06/14/17 00:00 99 06/14/17 00:00 98 06/13/17 23:00 99.6 124 20 94/56 (69) 99 116/56 (76) 06/13/17 20:20 97 Nasal Cannula 4.00 06/13/17 20:00 91 06/13/17 20:00 99 Nasal Cannula 2.00 06/13/17 20:00 18 I/O 06/13/17 06/13/17 06/13/17 06/14/17 06/14/17 06/14/17 07:00 15:00 23:00 07:00 15:00 23:00 Intake Total 352 ml 4010 ml 3335 ml 670 ml 150 ml 980 ml Output Total 450 ml 1400 ml 850 ml 600 ml 150 ml Balance -98 ml 2610 ml 2485 ml 70 ml 150 ml 830 ml Intake Oral 240 ml 420 ml 430 ml IV Total 112 ml 710 ml 535 ml 250 ml 150 ml 550 ml Autotransfusion 500 ml Other 2800 ml 2800 ml Output Urine Total 450 ml 400 ml 500 ml 450 ml 80 ml Gastric Drainage Total 0 ml Chest Tube Drainage Total 350 ml 150 ml 70 ml Estimated Blood Loss 1000 ml Bladder Scan Volume Amount 34 ml # Bowel Movements 0 0 Physical Exam GENERAL: NAD SKIN: Warm and dry. HEAD: Atraumatic. Normocephalic. EYES: Pupils equal and round. No scleral icterus. No injection or drainage. ENT: No nasal bleeding or discharge. Mucous membranes pink and moist. NECK: Trachea midline. No JVD. CARDIOVASCULAR: Irregularly irregular RESPIRATORY: No accessory muscle use. Decreased breath sounds left side GASTROINTESTINAL: Abdomen soft, non-tender, nondistended. Hepatic and splenic margins not palpable. MUSCULOSKELETAL: Extremities without clubbing, cyanosis, or edema. No obvious deformities. NEUROLOGICAL: Lethargic but awakens easily Laboratory Laboratory Tests Test 06/14/17 03:35 White Blood Count 9.0 TH/MM3 Red Blood Count 3.53 MIL/MM3 Hemoglobin 10.5 GM/DL Hematocrit 31.0 % Mean Corpuscular Volume 88.0 FL Mean Corpuscular Hemoglobin 29.8 PG Mean Corpuscular Hemoglobin Concent 33.9 % Red Cell Distribution Width 14.0 % Platelet Count 112 TH/MM3 Mean Platelet Volume 7.8 FL Blood Urea Nitrogen 12 MG/DL Creatinine 0.77 MG/DL Random Glucose 119 MG/DL Calcium Level 8.0 MG/DL Magnesium Level 2.0 MG/DL Sodium Level 139 MEQ/L Potassium Level 4.6 MEQ/L Chloride Level 106 MEQ/L Carbon Dioxide Level 25.2 MEQ/L Anion Gap 8 MEQ/L Estimat Glomerular Filtration Rate 97 ML/MIN Imaging Last 24 hours Impressions Chest X-Ray 06/14/17 0500 Signed Impressions: Service Date/Time: Wednesday, June 14, 2017 04:03 - CONCLUSION: Air in the left chest cavity concerning for 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 Torsten Yusuf MD Assessment and Plan Problem List: (1) Multi-vessel coronary artery stenosis ICD Codes: I25.10 - Atherosclerotic heart disease of [place] coronary artery without angina pectoris (2) S/P CABG x 2 ICD Codes: Z95.1 - Presence of aortocoronary bypass graft (3) Left bundle branch block ICD Codes: I44.7 - Left bundle-branch block, unspecified Status: Acute (4) Atrial fibrillation ICD Codes: I48.91 - Atrial fibrillation Status: Acute (5) History of pneumonectomy ICD Codes: Z90.2 - Acquired absence of lung [part of] Assessment and Plan 1) MVCAD s/p CABGx2 POD #1 OVIEDO to LAD SVG to RCA Residual LCx disease Will plan to treat medically, if further concern/symptoms then will consider stenting 2) EF 60-65%, mild LVH, mod-sev TR 3) Afib Rates will need to be controlled Resume anticoagulation after chest tubes out Problem Qualifiers (1) Atrial fibrillation: Qualified Codes: I48.1 - Persistent atrial fibrillation Wero Walker DO Jun 14, 2017 19:30
[2017-06-14] MEDS: PRAVASTATIN SOD 20 MG TAB PO SCH (20:10)
[2017-06-14] MEDS: DOCUSATE SODIUM 100 MG CAP PO SCH (20:11)
[2017-06-14] MEDS: SENNOSIDES 8.6 MG TAB PO SCH (20:12)
[2017-06-15] VITALS (25 sets, daily range): BP systolic 103–127; BP diastolic 62–77; PULSE 81–134; RESP 12–18; TEMP 97.6–98.2; O2SAT 95–98
[2017-06-15] MEDS: ceFAZolin 2 GM PREMIX 50 ML IV SCH (00:22)
[2017-06-15] MEDS: ACETAMINOPHEN/HYDROcodone 325 MG/5 MG TAB PO PRN ×4 (01:21→18:09)
[2017-06-15] MEDS: INSULIN ASPART SUPPLEMENTAL SCALE SQ SCH ×5 (01:28→21:00)
--- NOTE | 2017-06-15 04:59 | RADRPT ---
EXAM DATE/TIME: 06/15/2017 04:10 [facility] COMPARISON: CHEST SINGLE AP, June 14, 2017, 4:03. INDICATIONS : Shortness of breath. MEDICAL HISTORY : Thyroid disease. SURGICAL HISTORY : Left pneumonectomy. ENCOUNTER: Subsequent ACUITY: 1 week PAIN SCORE: 0/10 LOCATION: Bilateral chest FINDINGS: The patient is status post left pneumonectomy. There is some air seen in the left lateral chest. Ther e is volume loss with shift of the heart and mediastinal structures towards the left. The right lung appears clear. There do appear to be 2 drainage tubes over the mediastinum. There is a right internal jugular central line in place. CONCLUSION: Stable chest x-ray with patient being status post left pneumonectomy with some air in the left latera l chest. Torsten Yusuf MD on June 15, 2017 at 4:57 Board Certified Radiologist. This report was verified electronically.
[2017-06-15 05:47] LABS: AUTOMATED NEUTROPHIL # 8.9 TH/MM3 (1.8-7.7); BASOPHIL % 0.2 % (0.0-2.0); EOSINOPHIL % 0.2 % (0.0-4.0); HEMATOCRIT 29.5 % (39.0-51.0); HEMO FLAGS DIFF FINAL; LYMPH % 8.6 % (9.0-44.0); LYMPHOCYTE # 0.9 TH/MM3 (1.0-4.8); MEAN CELL VOLUME 89.4 FL (80.0-100.0); MEAN CORPUSCULAR HGB CONC 33.5 % (32.0-36.0); MONO % 9.1 % (0.0-8.0); NEUT % 81.9 % (16.0-70.0); PLATELET COUNT 118 TH/MM3 (150-450); RED CELL DISTRIBUTION WIDTH 14.4 % (11.6-17.2); WHITE BLOOD COUNT 10.9 TH/MM3 (4.0-11.0)
[2017-06-15] MEDS: LEVOTHYROXINE SODIUM 112 MCG TAB PO SCH (06:06)
[2017-06-15] MEDS: PANTOPRAZOLE SOD 40 MG DELAYED RELEASE TAB PO SCH (06:06)
[2017-06-15 06:14] LABS: BICARBONATE 27.2 MEQ/L (21.0-32.0); MAGNESIUM 2.2 MG/DL (1.5-2.5); POTASSIUM 4.2 MEQ/L (3.5-5.1)
[2017-06-15] MEDS: RESP: ALBUTEROL 2.5 MG/IPRATROPIUM 0.5 MG NEB (SCH) NEB ×3 (07:13→20:01)
[2017-06-15] MEDS: MAGNESIUM HYDROXIDE SUSP 30 ML CUP PO SCH (07:55)
[2017-06-15] MEDS: CLOPIDOGREL 75 MG TAB PO SCH (07:56)
[2017-06-15] MEDS: ASPIRIN 81 MG CHEW TAB PO SCH (07:56)
[2017-06-15] MEDS: MULTIVITAMINS/MINERALS THERAPEUTIC TAB PO SCH (07:56)
[2017-06-15] MEDS: DOCUSATE SODIUM 100 MG CAP PO SCH ×2 (07:56→20:46)
[2017-06-15] MEDS: AMIODARONE 200 MG TAB PO SCH ×2 (07:56→20:46)
[2017-06-15] MEDS: METOPROLOL TARTRATE 25 MG TAB PO SCH ×2 (07:56→20:46)
[2017-06-15] MEDS: POLYETHYLENE GLYCOL 17 GM PKG PO SCH (07:57)
[2017-06-15] MEDS: SODIUM CHLORIDE 0.9% FLUSH 10 ML FLUSH IV FLUSH SCH ×2 (09:00→20:47)
[2017-06-15] MEDS ORDERED: METOPROLOL TARTRATE 25 MG TAB PO ONE (09:30)
--- NOTE | 2017-06-15 14:38 | PD.CAR.PN ---
CVT Progress Note Subjective/Hospital Course: 81-year-old male, patient of Dr. Carrera, Dr. Daniel Torres and also Dr. Walker, who presented to the emergency room on the secondary to acute onset of chest discomfort. He woke up in the morning and he developed pain over the left anterior chest wall without radiation. The pain was about a 5 out of a 10. He denied any associated shortness of breath, diaphoresis. His called . He was given some nitro spray and aspirin which relieved his chest pain. His EKG showed a left bundle branch block which is apparently newto him. His troponins were negative however, he was taken to the bolt labeler by Dr. Walker which showed left main disease of 20%, proximal LAD 90%, mid distal LAD 90%, diagonal 10%, the circ 70%, the RCA 80%. 2-D echo showed EF 60% . PAST MEDICAL HISTORY His past medical history includes: 1. Qha-xokap-auao lung CA in 2009, followed by a left pneumonectomy and one round of chemotherapy. 2. Atrial fibrillation since 2009 that was prior treated with Coumadin, now on Xarelto, his last dose was on the . 3. Hyperlipidemia 4. Hypothyroidism. 5. 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 He did receive TPA at that time. 6. 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 He had radiation and chemotherapy. His oncologist is Dr. Rey. 06/13 surgery : 1. Urgent Off-pump Coronary Artery Bypass Grafting x 2 with Left Internal Mammary Artery (OVIEDO) to the Left Anterior Descending (LAD), reverse saphenous vein graft to the Right Coronary Artery (RCA) 2. Circumferential Lysis of Myocardial Adhesions 3. Ultrasound-guided Dissection of the RCA 4. Left Leg Endoscopic Vein [place] 2800crystalloid, 500cc cell saver, 06/14 up in chair, on 2 liter nasal cannula pain controlled no pressors, CXR noted will transfer to stepdown 06/15 chest tubes removed without difficultly remains in Afib rate 110, BB increased gentle diuresis resume xarelto in am dc plavix Objective: GENERAL: SKIN: Warm and dry. prevena dressing to chest, incision intact to left leg HEAD: Normocephalic. EYES: No scleral icterus. No injection or drainage. NECK: Supple, trachea midline. No JVD or lymphadenopathy. CARDIOVASCULAR: irregular rate and rhythm without murmurs, gallops, or rubs. general edema RESPIRATORY: Breath sounds equal bilaterally. No accessory muscle use. GASTROINTESTINAL: Abdomen soft, non-tender, nondistended. MUSCULOSKELETAL: No cyanosis, or edema. BACK: Nontender without obvious deformity. No CVA tenderness. Vital Signs Date Time Temp Pulse Resp B/P (MAP) Pulse Ox O2 Delivery O2 Flow Rate FiO2 06/15/17 13:00 113 06/15/17 12:00 115 06/15/17 11:00 98.0 81 16 103/68 (80) 96 06/15/17 11:00 108 06/15/17 11:00 96 Room Air 06/15/17 10:00 100 06/15/17 09:00 126 06/15/17 08:00 134 06/15/17 07:15 112 06/15/17 07:15 98 Room Air 06/15/17 07:15 97.8 114 16 127/76 (93) 98 06/15/17 07:13 97 21 06/15/17 06:09 128 06/15/17 05:08 112 06/15/17 03:00 97.6 106 16 117/67 (84) 98 06/15/17 03:00 98 Room Air 06/15/17 03:00 123 06/15/17 02:03 16 06/15/17 02:02 111 06/15/17 01:00 115 06/14/17 23:00 123 06/14/17 23:00 98 Room Air 06/14/17 22:50 98.3 108 17 123/68 (86) 98 06/14/17 21:00 123 06/14/17 20:50 98 Nasal Cannula 3.00 06/14/17 20:00 106 06/14/17 19:15 98.7 112 16 127/72 (90) 98 06/14/17 19:15 98 Room Air 06/14/17 19:00 115 06/14/17 18:00 134 06/14/17 17:00 128 06/14/17 16:00 126 06/14/17 15:30 96 Room Air 11/28/17 15:30 98.2 105 20 119/80 (93) 96 06/14/17 15:00 94 Labs: Laboratory Tests Test 06/15/17 05:00 White Blood Count 10.9 TH/MM3 (4.0-11.0) Red Blood Count 3.30 MIL/MM3 (4.50-5.90) Hemoglobin 9.9 GM/DL (13.0-17.0) Hematocrit 29.5 % (39.0-51.0) Mean Corpuscular Volume 89.4 FL (80.0-100.0) Mean Corpuscular Hemoglobin 30.0 PG (27.0-34.0) Mean Corpuscular Hemoglobin Concent 33.5 % (32.0-36.0) Red Cell Distribution Width 14.4 % (11.6-17.2) Platelet Count 118 TH/MM3 (150-450) Mean Platelet Volume 7.7 FL (7.0-11.0) Neutrophils (%) (Auto) 81.9 % (16.0-70.0) Lymphocytes (%) (Auto) 8.6 % (9.0-44.0) Monocytes (%) (Auto) 9.1 % (0.0-8.0) Eosinophils (%) (Auto) 0.2 % (0.0-4.0) Basophils (%) (Auto) 0.2 % (0.0-2.0) Neutrophils # (Auto) 8.9 TH/MM3 (1.8-7.7) Lymphocytes # (Auto) 0.9 TH/MM3 (1.0-4.8) Monocytes # (Auto) 1.0 TH/MM3 (0-0.9) Eosinophils # (Auto) 0.0 TH/MM3 (0-0.4) Basophils # (Auto) 0.0 TH/MM3 (0-0.2) CBC Comment DIFF FINAL Differential Comment Blood Urea Nitrogen 17 MG/DL (7-18) Creatinine 0.94 MG/DL (0.60-1.30) Random Glucose 114 MG/DL (74-106) Calcium Level 8.1 MG/DL (8.5-10.1) Magnesium Level 2.2 MG/DL (1.5-2.5) Sodium Level 137 MEQ/L (136-145) Potassium Level 4.2 MEQ/L (3.5-5.1) Chloride Level 105 MEQ/L (98-107) Carbon Dioxide Level 27.2 MEQ/L (21.0-32.0) Anion Gap 5 MEQ/L (5-15) Estimat Glomerular Filtration Rate 77 ML/MIN (>89) Result Diagram: 06/15/17 0500 06/15/17 0500 Telemetry: afib (1) Multi-vessel coronary artery stenosis (2) S/P CABG x 2 Plan: ASA, statin , BB resume xarelto chest tubes dc OOB ambulate (3) Left bundle branch block (4) Atrial fibrillation Plan: start xarelto in am (5) History of pneumonectomy Plan: pulm toileting Problem Qualifiers (1) Atrial fibrillation: Qualified Codes: I48.1 - Persistent atrial fibrillation Adelita Bach Jun 15, 2017 14:38
--- NOTE | 2017-06-15 14:42 | HHI.FF ---
Face to Face Verification Diagnosis: (1) History of colon cancer (2) Left bundle branch block (3) Multi-vessel coronary artery stenosis (4) History of pneumonectomy (5) S/P CABG x 2 (6) Atrial fibrillation (7) Hx of cancer of lung Physical Therapy Order: Evaluate and Treat Home Health Nursing Order: Signs/symptoms of disease process Medication education-adverse effect Wound care and dressing changes Nursing assessment with vital signs Instructions: Heart and Vascular Surgery patients *Special attention to sternal dressing Mandatory frequency Assess and evaluation, 4 days in a row The next week 3X week 2 times a week for 4 weeks 1 time a week for 5 weeks Schedule Heart and Vascular patients for full 60 day certification period Initial visit Review Open Heart Surgery Discharge Instructions (Sternal precautions, Activity, Elastic hose, Incision care, Driving, Incentive spirometry, Smoking, Faith, Work and other) Need Betadine to paint incision Medication reconciliation Importance of follow up care/ check on appointments Make calendar record temperature daily When to call [facility] nurse, review instructions, phone list Incentive Spirometry, demonstration Visit 1- Begin discharge instruction for patient family and/ or caregiver using teach back method- Signs and symptoms of infection Disease characteristics Medicines and side effects Foods and nutrition/ appetite Infection control/ hand washing/ hygiene Visit 2- Continue teaching Discharge instructions- include additional information on smoking cessation , sternal dressing (sternal vac) Visit 3- Continue teaching- Cough and deep breathing, incision monitoring. Choose my plate Visit 4- Continue teaching- Discuss limitations Discuss how they are feeling Discuss progress toward goals Remaining visits- continue teaching and monitoring PREVENA Single Use Negative Wound Therapy System Caregiver Instruction Sheet 1. A Prevena dressing system was applied to the chest incision during surgery , to promote wound healing. It works via a suction device (negative pressure wound therapy) to remove low to moderate levels of exudate (drainage) and infectious materials. We recommend that the device stay in place for up to seven days, from day of surgery. 2. Day of Surgery___06/13/17 Day of Removal ___06/20/17 3. The dressing should only be removed by a health healthcare business analyst. Please arrange removal of device to coincide with Home Health visit and or with Nursing staff at Rehab 4. If skin reddening or irritation of skin occurs, or excessive drainage, please notify the Cardiovascular Surgeons office at [phone]. 5. Light showering is permissible; however the pump should be disconnected and placed in safe location, where it will not get wet. The dressing should not be exposed to direct spray or submerged in water. No bath tub / shower only. Ensure the end of the tubing attached to the dressing is facing down so that water does not enter the top of the tube. 6. To remove Prevena dressing: press purple button to turn off device / remove the suction. Then disconnect the tubing from the pump. The fixation strips should be stretched away from the skin and the dressing lifted at one corner and peeled back until it has been fully removed. 7. After removal, it is ok to shower daily using liquid dial soap and clean wash cloth, rinse and pat dry, and leave incision open to air dry. For any concerns regarding Prevena dressing, and or wounds, please contact Milagro Mcqueen, patient navigator at [phone] or notify the Cardiovascular Surgeons office at [phone]. Incentive spirometry Q1 hr x 10, while awake, also use acapella device hourly whole awake Sternal Breast Bone Precautions: NO pushing or pulling, ( pt must use sternal pillow to support chest with all activities and with coughing ( takes up to 3 months breast bone to heal ) Daily incision care: ok to shower daily, no tub bath. Wash all incisions with liquid dial soap, clean wash cloth to each site, rinse and pat dry. Observe for any signs of infection, such as drainage which is dark yellow, macias, green or foul smelling. Immediately report to the surgeon any drainage from the chest incision, or legs, and for any abnormal drainage from the chest tube sites. Notify surgeon if any temp >101.5 degrees F. When specialty dressing removed/ or if you do not have one, continue to shower daily as above, then rinse and pat incision dry and paint with betadine daily x 5 days. Allow steri strips to fall off if you have any. Avoid lotions, creams, salves, oils, etc. for the first month Please see attached forms for additional instructions regarding post Open Heart specialty wound vacuum dressings. VONDA or Prevena , Dressing to be removed by Nursing staff on __06/20/17 Lens Shaper Grinder 3-4 weeks For any questions regarding incisions/ dressing / meds / post op care or above Symptoms, Tuesday 8am-5pm Heart & Vascular Surgery Office ( Dr. Murry & Dr. Griggs), After Hours / Nights (5pm -8am) Weekends and Holidays Please call [facility] ([facility]) Charge Nurse I have seen patient Nava Wiggins on 06/15/17. My clinical findings support the need for the requested home health care services because: Patient has SOB Deconditioned w/ increased weakness I certify that my clinical findings support that this patient is homebound because: Post-op weakness Adelita Bach Jun 15, 2017 14:42
[2017-06-15] MEDS: FUROSEMIDE 20 MG/2 ML VIAL IV PUSH SCH (14:58)
[2017-06-15] MEDS: POTASSIUM CHLORIDE 10 MEQ CAP PO SCH (14:59)
--- NOTE | 2017-06-15 18:33 | PD.CARD.PN ---
Subjective Subjective Remarks Patient was seen earlier today around noon, late entry note Doing well, much more awake Up and ambulating earlier in the day Objective Medications Current Medications Medications (Trade) Dose Ordered Sig/Rubens Route Start Time Stop Time Status Last Admin (Synthroid) 112 mcg DAILY@0600 PO 06/08/17 06:00 06/15/17 06:06 (Pravachol) 20 mg HS PO 06/07/17 21:00 06/14/17 20:10 (Tylenol) 500 mg Q4H PRN PO 06/07/17 09:45 (Flonase Edin Spr) 1 spray BID PRN NASAL 06/11/17 15:00 06/13/17 05:00 (NS Flush) 2 ml BID IV FLUSH 06/13/17 21:00 06/15/17 09:00 (NS Flush) 2 ml UNSCH PRN IV FLUSH 06/13/17 13:30 06/14/17 05:59 (Aspirin Chew) 81 mg DAILY PO 06/14/17 09:00 06/15/17 07:56 (Protonix) 40 mg DAILY@06 PO 06/14/17 06:00 06/15/17 06:06 (Cordarone) 200 mg Q12HR PO 06/13/17 21:00 06/15/17 07:56 (Tylenol) 650 mg Q4H PRN PO 06/13/17 14:00 ([place] 5-325 Mg) 1 tab Q3H PRN PO 06/13/17 16:00 06/15/17 18:09 ([place] 5-325 Mg) 2 tab Q3H PRN PO 06/13/17 16:00 06/15/17 12:10 (Zofran Inj) 4 mg Q6H PRN IV PUSH 06/13/17 14:00 (Duoneb Neb) 1 ampule Q2HR NEB PRN NEB 06/13/17 12:00 (Duoneb Neb) 1 ampule Q6HR WHILE AWAKE NEB NEB 06/14/17 14:00 06/16/17 13:59 06/15/17 13:59 (Colace) 100 mg BID PO 06/14/17 21:00 06/15/17 07:56 (Theragran M Tab) 1 tab DAILY PO 06/14/17 09:00 06/15/17 07:56 (Milk Of Magnesia Liq) 30 ml DAILY PO 06/14/17 09:00 06/15/17 07:55 (Dulcolax Supp) 10 mg UNSCH PRN RECTAL 06/14/17 08:45 (Miralax) 17 gm DAILY PO 06/15/17 09:00 06/15/17 07:57 (Senokot) 8.6 mg HS PO 06/14/17 21:00 06/14/17 20:12 (Fleets Enema (Adult)) 118 ml UNSCH PRN RECTAL 06/14/17 08:45 (D50w (Vial) Inj) 50 ml UNSCH PRN IV PUSH 06/14/17 08:45 (Glucagon Inj) 1 mg UNSCH PRN OTHER 06/14/17 08:45 (Pill Splitter) 1 ea UNSCH PRN OTHER 06/14/17 09:15 (NovoLOG SUPPLEMENTAL SCALE) 1 ACHS SLIDING SCALE SQ 06/15/17 12:00 (Lopressor) 25 mg BID PO 06/15/17 21:00 (Xarelto) 10 mg DAILY PO 06/16/17 09:00 (Lasix Inj) 20 mg DAILY IV PUSH 06/15/17 14:45 06/15/17 14:58 (KCl) 10 meq DAILY PO 06/15/17 14:45 06/15/17 14:59 Vital Signs / I&O Vital Signs Date Time Temp Pulse Resp B/P (MAP) Pulse Ox O2 Delivery O2 Flow Rate FiO2 06/15/17 18:00 121 06/15/17 17:00 120 06/15/17 16:00 120 06/15/17 15:00 122 06/15/17 15:00 97.6 110 18 118/71 (87) 95 06/15/17 15:00 96 Room Air 06/15/17 14:00 130 06/15/17 13:00 113 06/15/17 12:00 115 06/15/17 11:00 98.0 81 16 103/68 (80) 96 06/15/17 11:00 108 06/15/17 11:00 96 Room Air 06/15/17 10:00 100 06/15/17 09:00 126 06/15/17 08:00 134 06/15/17 07:15 112 06/15/17 07:15 98 Room Air 06/15/17 07:15 97.8 114 16 127/76 (93) 98 06/15/17 07:13 97 21 06/15/17 06:09 128 06/15/17 05:08 112 06/15/17 03:00 97.6 106 16 117/67 (84) 98 06/15/17 03:00 98 Room Air 06/15/17 03:00 123 06/15/17 02:03 16 06/15/17 02:02 111 06/15/17 01:00 115 06/14/17 23:00 123 06/14/17 23:00 98 Room Air 06/14/17 22:50 98.3 108 17 123/68 (86) 98 06/14/17 21:00 123 06/14/17 20:50 98 Nasal Cannula 3.00 06/14/17 20:00 106 06/14/17 19:15 98.7 112 16 127/72 (90) 98 06/14/17 19:15 98 Room Air 06/14/17 19:00 115 I/O 06/14/17 06/14/17 06/14/17 06/15/17 06/15/17 06/15/17 07:00 15:00 23:00 07:00 15:00 23:00 Intake Total 670 ml 150 ml 980 ml 285 ml 480 ml Output Total 600 ml 150 ml 330 ml 400 ml Balance 70 ml 150 ml 830 ml -45 ml 80 ml Intake Oral 420 ml 430 ml 240 ml 480 ml IV Total 250 ml 150 ml 550 ml 45 ml 0 ml Output Urine Total 450 ml 80 ml 275 ml 400 ml Chest Tube Drainage Total 150 ml 70 ml 55 ml Bladder Scan Volume Amount 34 ml # Voids 2 # Bowel Movements 0 0 Physical Exam GENERAL: NAD SKIN: Warm and dry. HEAD: Atraumatic. Normocephalic. EYES: Pupils equal and round. No scleral icterus. No injection or drainage. ENT: No nasal bleeding or discharge. Mucous membranes pink and moist. NECK: Trachea midline. No JVD. CARDIOVASCULAR: Irregularly irregular RESPIRATORY: No accessory muscle use. Decreased breath sounds left side GASTROINTESTINAL: Abdomen soft, non-tender, nondistended. Hepatic and splenic margins not palpable. MUSCULOSKELETAL: Extremities without clubbing, cyanosis, or edema. No obvious deformities. NEUROLOGICAL: Lethargic but awakens easily Laboratory Laboratory Tests Test 06/15/17 05:00 White Blood Count 10.9 TH/MM3 Red Blood Count 3.30 MIL/MM3 Hemoglobin 9.9 GM/DL Hematocrit 29.5 % Mean Corpuscular Volume 89.4 FL Mean Corpuscular Hemoglobin 30.0 PG Mean Corpuscular Hemoglobin Concent 33.5 % Red Cell Distribution Width 14.4 % Platelet Count 118 TH/MM3 Mean Platelet Volume 7.7 FL Neutrophils (%) (Auto) 81.9 % Lymphocytes (%) (Auto) 8.6 % Monocytes (%) (Auto) 9.1 % Eosinophils (%) (Auto) 0.2 % Basophils (%) (Auto) 0.2 % Neutrophils # (Auto) 8.9 TH/MM3 Lymphocytes # (Auto) 0.9 TH/MM3 Monocytes # (Auto) 1.0 TH/MM3 Eosinophils # (Auto) 0.0 TH/MM3 Basophils # (Auto) 0.0 TH/MM3 CBC Comment DIFF FINAL Differential Comment Blood Urea Nitrogen 17 MG/DL Creatinine 0.94 MG/DL Random Glucose 114 MG/DL Calcium Level 8.1 MG/DL Magnesium Level 2.2 MG/DL Sodium Level 137 MEQ/L Potassium Level 4.2 MEQ/L Chloride Level 105 MEQ/L Carbon Dioxide Level 27.2 MEQ/L Anion Gap 5 MEQ/L Estimat Glomerular Filtration Rate 77 ML/MIN Thyroid Stimulating Hormone 3rd Gen 0.827 uIU/ML Imaging Last 24 hours Impressions Chest X-Ray 06/15/17 0600 Signed Impressions: Service Date/Time: Thursday, June 15, 2017 04:10 - CONCLUSION: Stable chest x-ray with patient being status post left pneumonectomy with some air in the left lateral chest. Torsten Yusuf MD Assessment and Plan Problem List: (1) Multi-vessel coronary artery stenosis ICD Codes: I25.10 - Atherosclerotic heart disease of [place] coronary artery without angina pectoris (2) S/P CABG x 2 ICD Codes: Z95.1 - Presence of aortocoronary bypass graft (3) Left bundle branch block ICD Codes: I44.7 - Left bundle-branch block, unspecified Status: Acute (4) Atrial fibrillation ICD Codes: I48.91 - Atrial fibrillation Status: Acute (5) History of pneumonectomy ICD Codes: Z90.2 - Acquired absence of lung [part of] Assessment and Plan 1) MVCAD s/p CABGx2 POD #2 OVIEDO to LAD SVG to RCA Residual LCx disease Will plan to treat medically, if further concern/symptoms then will consider stenting 2) EF 60-65%, mild LVH, mod-sev TR 3) Afib Rates will need to be controlled BB increased Con't Amio Restarted on Xarelto Stopped Plavix Problem Qualifiers (1) Atrial fibrillation: Qualified Codes: I48.1 - Persistent atrial fibrillation Wero Walker DO Jun 15, 2017 18:32
[2017-06-15] MEDS: SENNOSIDES 8.6 MG TAB PO SCH (20:46)
[2017-06-15] MEDS: PRAVASTATIN SOD 20 MG TAB PO SCH (20:47)
[2017-06-16] VITALS (27 sets, daily range): BP systolic 113–134; BP diastolic 62–82; PULSE 90–117; RESP 12–20; TEMP 97.7–99.3; O2SAT 95–97
[2017-06-16] MEDS: ACETAMINOPHEN/HYDROcodone 325 MG/5 MG TAB PO PRN ×2 (04:06→21:21)
--- NOTE | 2017-06-16 05:49 | RADRPT ---
EXAM DATE/TIME: 06/16/2017 04:46 [place] COMPARISON: CHEST SINGLE AP, June 15, 2017, 4:10. INDICATIONS : Shortness of breath, possible pneumothorax. MEDICAL HISTORY : Thyroid disease. SURGICAL HISTORY : Left pneumonectomy ENCOUNTER: Subsequent ACUITY: 1 week PAIN SCORE: 0/10 LOCATION: Bilateral chest FINDINGS: The patient is status post sternotomy. Clips are seen in the left hilar region. There is slight loss with shift of the heart and mediastinal structures towards the left. The patient is status post left pneumonectomy. There is air seen in the left lateral chest. The right lung is clear. The previously s een mediastinal drain and chest tube have been removed. CONCLUSION: Status post left pneumonectomy. The appearance the left chest is unchanged from the prior exam. There 's been removal of the chest tubes. Torsten Yusuf MD on June 16, 2017 at 5:46 Board Certified Radiologist. This report was verified electronically.
[2017-06-16 05:56] LABS: HEMATOCRIT 29.2 % (39.0-51.0); MEAN CORPUSCULAR HEMOGLOBIN 30.4 PG (27.0-34.0); MEAN CORPUSCULAR HGB CONC 33.8 % (32.0-36.0); PLATELET COUNT 139 TH/MM3 (150-450); RED BLOOD COUNT 3.25 MIL/MM3 (4.50-5.90); RED CELL DISTRIBUTION WIDTH 14.8 % (11.6-17.2); REVIEW FLAG FINAL; WHITE BLOOD COUNT 10.4 TH/MM3 (4.0-11.0)
[2017-06-16] MEDS: PANTOPRAZOLE SOD 40 MG DELAYED RELEASE TAB PO SCH (06:18)
[2017-06-16] MEDS: LEVOTHYROXINE SODIUM 112 MCG TAB PO SCH (06:18)
[2017-06-16] MEDS: INSULIN ASPART SUPPLEMENTAL SCALE SQ SCH ×2 (08:00→10:50)
[2017-06-16] MEDS: RESP: ALBUTEROL 2.5 MG/IPRATROPIUM 0.5 MG NEB (SCH) NEB (08:35)
[2017-06-16] MEDS: ASPIRIN 81 MG CHEW TAB PO SCH (08:44)
[2017-06-16] MEDS: POTASSIUM CHLORIDE 10 MEQ CAP PO SCH (08:44)
[2017-06-16] MEDS: FUROSEMIDE 20 MG/2 ML VIAL IV PUSH SCH (08:44)
[2017-06-16] MEDS: RIVAROXABAN 10 MG TAB PO SCH (08:45)
[2017-06-16] MEDS: MULTIVITAMINS/MINERALS THERAPEUTIC TAB PO SCH (08:45)
[2017-06-16] MEDS: POLYETHYLENE GLYCOL 17 GM PKG PO SCH (08:45)
[2017-06-16] MEDS: METOPROLOL TARTRATE 25 MG TAB PO SCH ×2 (08:45→21:14)
[2017-06-16] MEDS: MAGNESIUM HYDROXIDE SUSP 30 ML CUP PO SCH (08:46)
[2017-06-16] MEDS: DOCUSATE SODIUM 100 MG CAP PO SCH ×2 (08:46→21:13)
[2017-06-16] MEDS: SODIUM CHLORIDE 0.9% FLUSH 10 ML FLUSH IV FLUSH SCH ×2 (08:53→21:14)
[2017-06-16] MEDS: AMIODARONE 200 MG TAB PO SCH (10:56)
[2017-06-16] MEDS ORDERED: METOPROLOL TARTRATE 25 MG TAB PO ONE (12:00)
--- NOTE | 2017-06-16 17:04 | PD.CAR.PN ---
CVT Progress Note Subjective/Hospital Course: 81-year-old male, patient of Dr. Carrera, Dr. Daniel Torres and also Dr. Walker, who presented to the emergency room on the secondary to acute onset of chest discomfort. He woke up in the morning and he developed pain over the left anterior chest wall without radiation. The pain was about a 5 out of a 10. He denied any associated shortness of breath, diaphoresis. His called . He was given some nitro spray and aspirin which relieved his chest pain. His EKG showed a left bundle branch block which is apparently newto him. His troponins were negative however, he was taken to the laboratory apparatus glass blower by Dr. Walker which showed left main disease of 20%, proximal LAD 90%, mid distal LAD 90%, diagonal 10%, the circ 70%, the RCA 80%. 2-D echo showed EF 60% . PAST MEDICAL HISTORY His past medical history includes: 1. [id number] lung CA in 2009, followed by a left pneumonectomy and one round of chemotherapy. 2. Atrial fibrillation since 2009 that was prior treated with Coumadin, now on Xarelto, his last dose was on the . 3. Hyperlipidemia 4. Hypothyroidism. 5. 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 He did receive TPA at that time. 6. 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 He had radiation and chemotherapy. His oncologist is Dr. Rey. 06/13 surgery : 1. Urgent Off-pump Coronary Artery Bypass Grafting x 2 with Left Internal Mammary Artery (OVIEDO) to the Left Anterior Descending (LAD), reverse saphenous vein graft to the Right Coronary Artery (RCA) 2. Circumferential Lysis of Myocardial Adhesions 3. Ultrasound-guided Dissection of the RCA 4. Left Leg Endoscopic Vein Chandler 2800crystalloid, 500cc cell saver, 06/14 up in chair, on 2 liter nasal cannula pain controlled no pressors, CXR noted will transfer to stepdown 06/15 chest tubes removed without difficultly remains in Afib rate 110, BB increased gentle diuresis resume xarelto in am dc plavix 06/16 on xarelto , HR varies 100-120 BB slowly increased 2/[address] Aaron jose for dc to rehab tomorrow continue low dose diuretic Objective: GENERAL: SKIN: Warm and dry. prevena dressing to chest , incision in tact to leg HEAD: Normocephalic. EYES: No scleral icterus. No injection or drainage. NECK: Supple, trachea midline. No JVD or lymphadenopathy. CARDIOVASCULAR: Regular rate and rhythm without murmurs, gallops, or rubs. RESPIRATORY: diminished in bases, few basilar crackles Breath sounds equal bilaterally. No accessory muscle use. GASTROINTESTINAL: Abdomen soft, non-tender, nondistended. MUSCULOSKELETAL: No cyanosis, or edema. BACK: Nontender without obvious deformity. No CVA tenderness. Vital Signs Date Time Temp Pulse Resp B/P (MAP) Pulse Ox O2 Delivery O2 Flow Rate FiO2 06/16/17 16:00 100 06/16/17 15:27 98.0 105 18 134/70 (91) 97 06/16/17 15:00 117 06/16/17 14:00 99 06/16/17 13:00 98 06/16/17 12:00 101 06/16/17 11:51 97.7 105 12 113/62 (79) 97 06/16/17 11:00 102 06/16/17 10:00 98 06/16/17 09:00 110 06/16/17 08:00 114 06/16/17 08:00 98.1 110 18 128/73 (91) 95 06/16/17 08:00 110 06/16/17 07:00 90 06/16/17 06:00 96 06/16/17 05:00 102 06/16/17 04:00 116 06/16/17 03:00 93 06/16/17 03:00 99.3 105 16 128/82 (97) 97 06/16/17 02:00 100 06/16/17 01:00 104 06/16/17 00:00 98 06/15/17 23:00 97.7 105 12 113/62 (79) 97 06/15/17 23:00 97 Room Air 06/15/17 23:00 101 06/15/17 22:00 114 06/15/17 21:00 120 06/15/17 20:30 98.2 110 16 126/77 (93) 96 06/15/17 20:01 95 21 06/15/17 20:00 114 06/15/17 19:00 116 06/15/17 19:00 96 Room Air 06/15/17 18:00 121 06/15/17 17:00 120 Labs: Laboratory Tests Test 06/16/17 05:43 White Blood Count 10.4 TH/MM3 (4.0-11.0) Red Blood Count 3.25 MIL/MM3 (4.50-5.90) Hemoglobin 9.9 GM/DL (13.0-17.0) Hematocrit 29.2 % (39.0-51.0) Mean Corpuscular Volume 90.0 FL (80.0-100.0) Mean Corpuscular Hemoglobin 30.4 PG (27.0-34.0) Mean Corpuscular Hemoglobin Concent 33.8 % (32.0-36.0) Red Cell Distribution Width 14.8 % (11.6-17.2) Platelet Count 139 TH/MM3 (150-450) Mean Platelet Volume 7.6 FL (7.0-11.0) Result Diagram: 06/16/17 0543 06/15/17 0500 (1) Multi-vessel coronary artery stenosis (2) S/P CABG x 2 Plan: ASA, statin , BB xarelto no PTX post chest tube removaL OOB ambulate EVAL FOR DC IN AM (3) Left bundle branch block (4) Atrial fibrillation Plan: xarelto (5) History of pneumonectomy Plan: pulm toileting Problem Qualifiers (1) Atrial fibrillation: Qualified Codes: I48.1 - Persistent atrial fibrillation Adelita Bach Jun 16, 2017 17:04
--- NOTE | 2017-06-16 21:03 | PD.CARD.PN ---
Subjective Subjective Remarks Doing well Up and ambulating earlier in the day Heart rates mildly better ~100 Objective Medications Current Medications Medications (Trade) Dose Ordered Sig/Rubens Route Start Time Stop Time Status Last Admin (Synthroid) 112 mcg DAILY@0600 PO 06/08/17 06:00 06/16/17 06:18 (Pravachol) 20 mg HS PO 06/07/17 21:00 06/15/17 20:47 (Tylenol) 500 mg Q4H PRN PO 06/07/17 09:45 (Flonase Edin Spr) 1 spray BID PRN NASAL 06/11/17 15:00 06/13/17 05:00 (NS Flush) 2 ml BID IV FLUSH 06/13/17 21:00 06/16/17 08:53 (NS Flush) 2 ml UNSCH PRN IV FLUSH 06/13/17 13:30 06/14/17 05:59 (Aspirin Chew) 81 mg DAILY PO 06/14/17 09:00 06/16/17 08:44 (Protonix) 40 mg DAILY@06 PO 06/14/17 06:00 06/16/17 06:18 (Tylenol) 650 mg Q4H PRN PO 06/13/17 14:00 ([place] 5-325 Mg) 1 tab Q3H PRN PO 06/13/17 16:00 06/16/17 04:06 ([place] 5-325 Mg) 2 tab Q3H PRN PO 06/13/17 16:00 06/15/17 12:10 (Zofran Inj) 4 mg Q6H PRN IV PUSH 06/13/17 14:00 (Duoneb Neb) 1 ampule Q2HR NEB PRN NEB 06/13/17 12:00 (Colace) 100 mg BID PO 06/14/17 21:00 06/15/17 20:46 (Theragran M Tab) 1 tab DAILY PO 06/14/17 09:00 06/16/17 08:45 (Milk Of Magnesia Liq) 30 ml DAILY PO 06/14/17 09:00 06/15/17 07:55 (Dulcolax Supp) 10 mg UNSCH PRN RECTAL 06/14/17 08:45 (Miralax) 17 gm DAILY PO 06/15/17 09:00 06/15/17 07:57 (Senokot) 8.6 mg HS PO 06/14/17 21:00 06/15/17 20:46 (Fleets Enema (Adult)) 118 ml UNSCH PRN RECTAL 06/14/17 08:45 (D50w (Vial) Inj) 50 ml UNSCH PRN IV PUSH 06/14/17 08:45 (Glucagon Inj) 1 mg UNSCH PRN OTHER 06/14/17 08:45 (Pill Splitter) 1 ea UNSCH PRN OTHER 06/14/17 09:15 (Xarelto) 10 mg DAILY PO 06/16/17 09:00 06/16/17 08:45 (Lasix Inj) 20 mg DAILY IV PUSH 06/15/17 14:45 06/16/17 08:44 (KCl) 10 meq DAILY PO 06/15/17 14:45 06/16/17 08:44 (Lopressor) 37.5 mg BID PO 06/16/17 21:00 Vital Signs / I&O Vital Signs Date Time Temp Pulse Resp B/P (MAP) Pulse Ox O2 Delivery O2 Flow Rate FiO2 06/16/17 19:44 97 21 06/16/17 18:00 99 06/16/17 17:00 100 06/16/17 16:00 100 06/16/17 15:27 98.0 105 18 134/70 (91) 97 06/16/17 15:00 117 06/16/17 14:00 99 06/16/17 13:00 98 06/16/17 12:00 101 06/16/17 11:51 97.7 105 12 113/62 (79) 97 06/16/17 11:00 102 06/16/17 10:00 98 06/16/17 09:00 110 06/16/17 08:00 114 06/16/17 08:00 98.1 110 18 128/73 (91) 95 06/16/17 08:00 110 06/16/17 07:00 90 06/16/17 06:00 96 06/16/17 05:00 102 06/16/17 04:00 116 06/16/17 03:00 93 06/16/17 03:00 99.3 105 16 128/82 (97) 97 06/16/17 02:00 100 06/16/17 01:00 104 06/16/17 00:00 98 06/15/17 23:00 97.7 105 12 113/62 (79) 97 06/15/17 23:00 97 Room Air 06/15/17 23:00 101 06/15/17 22:00 114 I/O 06/15/17 06/15/17 06/15/17 06/16/17 06/16/17 06/16/17 07:00 15:00 23:00 07:00 15:00 23:00 Intake Total 285 ml 480 ml 240 ml 875 ml Output Total 330 ml 400 ml 400 ml 750 ml Balance -45 ml 80 ml -160 ml 125 ml Intake Oral 240 ml 480 ml 240 ml 875 ml IV Total 45 ml 0 ml 0 ml Output Urine Total 275 ml 400 ml 400 ml 550 ml Stool Total 0 ml 200 ml Chest Tube Drainage Total 55 ml # Voids 2 # Bowel Movements 0 0 Physical Exam GENERAL: NAD SKIN: Warm and dry. HEAD: Atraumatic. Normocephalic. EYES: Pupils equal and round. No scleral icterus. No injection or drainage. ENT: No nasal bleeding or discharge. Mucous membranes pink and moist. NECK: Trachea midline. No JVD. CARDIOVASCULAR: Irregularly irregular RESPIRATORY: No accessory muscle use. Decreased breath sounds left side GASTROINTESTINAL: Abdomen soft, non-tender, nondistended. Hepatic and splenic margins not palpable. MUSCULOSKELETAL: Extremities without clubbing, cyanosis, or edema. No obvious deformities. NEUROLOGICAL: Lethargic but awakens easily Laboratory Laboratory Tests Test 06/16/17 05:43 White Blood Count 10.4 TH/MM3 Red Blood Count 3.25 MIL/MM3 Hemoglobin 9.9 GM/DL Hematocrit 29.2 % Mean Corpuscular Volume 90.0 FL Mean Corpuscular Hemoglobin 30.4 PG Mean Corpuscular Hemoglobin Concent 33.8 % Red Cell Distribution Width 14.8 % Platelet Count 139 TH/MM3 Mean Platelet Volume 7.6 FL Imaging Last 24 hours Impressions Chest X-Ray 06/16/17 0600 Signed Impressions: Service Date/Time: May 04:46 - CONCLUSION: Status post left pneumonectomy. The appearance the left chest is unchanged from the prior exam. There's been removal of the chest tubes. Torsten Yusuf MD Assessment and Plan Problem List: (1) Multi-vessel coronary artery stenosis ICD Codes: I25.10 - Atherosclerotic heart disease of [place] coronary artery without angina pectoris (2) S/P CABG x 2 ICD Codes: Z95.1 - Presence of aortocoronary bypass graft (3) Left bundle branch block ICD Codes: I44.7 - Left bundle-branch block, unspecified Status: Acute (4) Atrial fibrillation ICD Codes: I48.91 - Atrial fibrillation Status: Acute (5) History of pneumonectomy ICD Codes: Z90.2 - Acquired absence of lung [part of] Assessment and Plan 1) MVCAD s/p CABGx2 POD #3 OVIEDO to LAD SVG to RCA Residual LCx disease Will plan to treat medically, if further concern/symptoms then will consider stenting 2) EF 60-65%, mild LVH, mod-sev TR 3) Afib Rates will need to be controlled BB increased to 37.5mg BID Restarted on Xarelto Stopped Plavix Problem Qualifiers (1) Atrial fibrillation: Qualified Codes: I48.1 - Persistent atrial fibrillation Wero Walker DO Jun 16, 2017 21:03
[2017-06-16] MEDS: SENNOSIDES 8.6 MG TAB PO SCH (21:13)
[2017-06-16] MEDS: PRAVASTATIN SOD 20 MG TAB PO SCH (21:13)
[2017-06-17] VITALS (15 sets, daily range): BP systolic 111–124; BP diastolic 62–71; PULSE 66–102; RESP 20; TEMP 98.4–98.9; O2SAT 96–97
[2017-06-17] MEDS: PANTOPRAZOLE SOD 40 MG DELAYED RELEASE TAB PO SCH (05:43)
[2017-06-17] MEDS: LEVOTHYROXINE SODIUM 112 MCG TAB PO SCH (05:44)
[2017-06-17] MEDS: DOCUSATE SODIUM 100 MG CAP PO SCH (09:00)
[2017-06-17] MEDS: MAGNESIUM HYDROXIDE SUSP 30 ML CUP PO SCH (09:00)
[2017-06-17] MEDS: SODIUM CHLORIDE 0.9% FLUSH 10 ML FLUSH IV FLUSH SCH (09:00)
[2017-06-17] MEDS: POLYETHYLENE GLYCOL 17 GM PKG PO SCH (09:00)
[2017-06-17] MEDS: POTASSIUM CHLORIDE 10 MEQ CAP PO SCH (09:42)
[2017-06-17] MEDS: METOPROLOL TARTRATE 25 MG TAB PO SCH (09:42)
[2017-06-17] MEDS: MULTIVITAMINS/MINERALS THERAPEUTIC TAB PO SCH (09:43)
[2017-06-17] MEDS: RIVAROXABAN 10 MG TAB PO SCH (09:43)
[2017-06-17] MEDS: ASPIRIN 81 MG CHEW TAB PO SCH (09:43)
[2017-06-17] MEDS: FUROSEMIDE 20 MG/2 ML VIAL IV PUSH SCH (09:47)
--- NOTE | 2017-06-17 12:59 | PD.CARD.PN ---
Subjective Subjective Remarks Doing well Up and ambulating earlier in the day Heart rates better, 80-100 Objective Medications Current Medications Medications (Trade) Dose Ordered Sig/[place] Route Start Time Stop Time Status Last Admin (Synthroid) 112 mcg DAILY@0600 PO 06/08/17 06:00 06/17/17 05:44 (Pravachol) 20 mg HS PO 06/07/17 21:00 06/16/17 21:13 (Tylenol) 500 mg Q4H PRN PO 06/07/17 09:45 (Flonase Edin Spr) 1 spray BID PRN NASAL 06/11/17 15:00 06/13/17 05:00 (NS Flush) 2 ml BID IV FLUSH 06/13/17 21:00 06/17/17 09:00 (NS Flush) 2 ml UNSCH PRN IV FLUSH 06/13/17 13:30 06/14/17 05:59 (Aspirin Chew) 81 mg DAILY PO 06/14/17 09:00 06/17/17 09:43 (Protonix) 40 mg DAILY@06 PO 06/14/17 06:00 06/17/17 05:43 (Tylenol) 650 mg Q4H PRN PO 06/13/17 14:00 ([place] 5-325 Mg) 1 tab Q3H PRN PO 06/13/17 16:00 06/16/17 21:21 ([place] 5-325 Mg) 2 tab Q3H PRN PO 06/13/17 16:00 06/15/17 12:10 (Zofran Inj) 4 mg Q6H PRN IV PUSH 06/13/17 14:00 (Duoneb Neb) 1 ampule Q2HR NEB PRN NEB 06/13/17 12:00 (Colace) 100 mg BID PO 06/14/17 21:00 06/16/17 21:13 (Theragran M Tab) 1 tab DAILY PO 06/14/17 09:00 06/17/17 09:43 (Milk Of Magnesia Liq) 30 ml DAILY PO 06/14/17 09:00 06/15/17 07:55 (Dulcolax Supp) 10 mg UNSCH PRN RECTAL 06/14/17 08:45 (Miralax) 17 gm DAILY PO 06/15/17 09:00 06/15/17 07:57 (Senokot) 8.6 mg HS PO 06/14/17 21:00 06/16/17 21:13 (Fleets Enema (Adult)) 118 ml UNSCH PRN RECTAL 06/14/17 08:45 (D50w (Vial) Inj) 50 ml UNSCH PRN IV PUSH 06/14/17 08:45 (Glucagon Inj) 1 mg UNSCH PRN OTHER 06/14/17 08:45 (Pill Splitter) 1 ea UNSCH PRN OTHER 06/14/17 09:15 (Xarelto) 10 mg DAILY PO 06/16/17 09:00 06/17/17 09:43 (Lasix Inj) 20 mg DAILY IV PUSH 06/15/17 14:45 06/17/17 09:47 (KCl) 10 meq DAILY PO 06/15/17 14:45 06/17/17 09:42 (Lopressor) 37.5 mg BID PO 06/16/17 21:00 06/17/17 09:42 Vital Signs / I&O Vital Signs Date Time Temp Pulse Resp B/P (MAP) Pulse Ox O2 Delivery O2 Flow Rate FiO2 06/17/17 12:00 98.9 102 20 124/62 (82) 96 06/17/17 12:00 82 06/17/17 11:00 84 06/17/17 10:00 82 06/17/17 09:00 89 06/17/17 08:00 88 06/17/17 07:52 98.7 102 20 111/68 (82) 96 06/17/17 07:00 66 06/17/17 06:00 66 06/17/17 05:43 98.4 84 20 119/71 (87) 97 06/17/17 05:00 72 06/17/17 04:00 89 06/17/17 03:00 86 06/17/17 02:08 89 06/17/17 01:00 97 06/17/17 00:00 102 06/17/17 00:00 98.7 97 20 112/63 (79) 96 06/16/17 23:04 94 06/16/17 22:00 91 06/16/17 21:00 98 06/16/17 20:00 94 06/16/17 20:00 98.6 102 20 119/76 (90) 96 06/16/17 19:44 97 21 06/16/17 19:00 102 06/16/17 18:00 99 06/16/17 17:00 100 06/16/17 16:00 100 06/16/17 15:27 98.0 105 18 134/70 (91) 97 06/16/17 15:00 117 06/16/17 14:00 99 06/16/17 13:00 98 I/O 06/16/17 06/16/17 06/16/17 06/17/17 06/17/17 06/17/17 07:00 15:00 23:00 07:00 15:00 23:00 Intake Total 240 ml 875 ml 240 ml Output Total 400 ml 750 ml 550 ml Balance -160 ml 125 ml -310 ml Intake Oral 240 ml 875 ml 240 ml IV Total 0 ml Output Urine Total 400 ml 550 ml 550 ml Stool Total 0 ml 200 ml 0 ml # Bowel Movements 0 Physical Exam GENERAL: NAD SKIN: Warm and dry. HEAD: Atraumatic. Normocephalic. EYES: Pupils equal and round. No scleral icterus. No injection or drainage. ENT: No nasal bleeding or discharge. Mucous membranes pink and moist. NECK: Trachea midline. No JVD. CARDIOVASCULAR: Irregularly irregular RESPIRATORY: No accessory muscle use. Decreased breath sounds left side GASTROINTESTINAL: Abdomen soft, non-tender, nondistended. Hepatic and splenic margins not palpable. MUSCULOSKELETAL: Extremities without clubbing, cyanosis, or edema. No obvious deformities. NEUROLOGICAL: Lethargic but awakens easily Assessment and Plan Problem List: (1) Multi-vessel coronary artery stenosis ICD Codes: I25.10 - Atherosclerotic heart disease of [place] coronary artery without angina pectoris (2) S/P CABG x 2 ICD Codes: Z95.1 - Presence of aortocoronary bypass graft (3) Left bundle branch block ICD Codes: I44.7 - Left bundle-branch block, unspecified Status: Acute (4) Atrial fibrillation ICD Codes: I48.91 - Atrial fibrillation Status: Acute (5) History of pneumonectomy ICD Codes: Z90.2 - Acquired absence of lung [part of] Assessment and Plan 1) MVCAD s/p CABGx2 POD #4 OVIEDO to LAD SVG to RCA Residual LCx disease Will plan to treat medically, if further concern/symptoms then will consider stenting 2) EF 60-65%, mild LVH, mod-sev TR 3) Afib Rates better controlled Restarted on Xarelto Stopped Plavix 4) Will see PRN, call with questions Problem Qualifiers (1) Atrial fibrillation: Qualified Codes: I48.1 - Persistent atrial fibrillation Wero Walker DO Jun 17, 2017 12:59
[2017-06-17] MEDS ORDERED: METO25TA3 PO (13:47)
[2017-06-17] MEDS ORDERED: HYDR-3516 PO (13:47)
[2017-06-17] MEDS ORDERED: DOCU1CAP39 PO (13:47)
[2017-06-17] MEDS ORDERED: ASPI81 PO (13:47)
--- NOTE | 2017-06-17 13:53 | HHI.DS ---
Discharge Summary Admission Date Jun 09, 2017 at 08:26 Admitting Diagnosis chest pain, rule out ACS (1) Chest pain Diagnosis: Principal ICD Codes: R07.9 - Chest pain, unspecified Status: Acute (2) Left bundle branch block Diagnosis: Principal ICD Codes: I44.7 - Left bundle-branch block, unspecified Status: Acute (3) Atrial fibrillation Diagnosis: Principal ICD Codes: I48.91 - Atrial fibrillation Status: Chronic (4) History of pneumonectomy Diagnosis: Principal ICD Codes: Z90.2 - Acquired absence of lung [part of] Status: Chronic (5) S/P CABG x 2 Diagnosis: Secondary ICD Codes: Z95.1 - Presence of aortocoronary bypass graft Procedures 06/13 1. Urgent Off-pump Coronary Artery Bypass Grafting x 2 with Left Internal Mammary Artery (OVIEDO) to the Left Anterior Descending (LAD), reverse saphenous vein graft to the Right Coronary Artery (RCA) 2. Circumferential Lysis of Myocardial Adhesions 3. Ultrasound-guided Dissection of the RCA 4. Left Leg Endoscopic Vein [place] 5. Intraoperative Vein Mapping Brief History 81-year-old male, patient of Dr. Carrera, Dr. Daniel Torres and also Dr. Walker, who presented to the emergency room on the secondary to acute onset of chest discomfort. He woke up in the morning and he developed pain over the left anterior chest wall without radiation. The pain was about a 5 out of a 10. He denied any associated shortness of breath, diaphoresis. His called 9--1. He was given some nitro spray and aspirin which relieved his chest pain. His EKG showed a left bundle branch block which is apparently newto him. His troponins were negative however, he was taken to the lab intern by Dr. Walker which showed left main disease of 20%, proximal LAD 90%, mid distal LAD 90%, diagonal 10%, the circ 70%, the RCA 80%. 2-D echo showed EF 60% . PAST MEDICAL HISTORY His past medical history includes: 1. [id number] lung CA in 2009, followed by a left pneumonectomy and one round of chemotherapy. 2. Atrial fibrillation since 2009 that was prior treated with Coumadin, now on Xarelto, his last dose was on the . 3. Hyperlipidemia 4. Hypothyroidism. 5. 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 He did receive TPA at that time. 6. 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 He had radiation and chemotherapy. His oncologist is Dr. Rey. CBC/BMP: 06/16/17 0543 06/15/17 0500 Significant Findings Laboratory Tests Test 06/15/17 05:00 06/16/17 05:43 Red Blood Count 3.30 MIL/MM3 (4.50-5.90) 3.25 MIL/MM3 (4.50-5.90) Hemoglobin 9.9 GM/DL (13.0-17.0) 9.9 GM/DL (13.0-17.0) Hematocrit 29.5 % (39.0-51.0) 29.2 % (39.0-51.0) Platelet Count 118 TH/MM3 (150-450) 139 TH/MM3 (150-450) Neutrophils (%) (Auto) 81.9 % (16.0-70.0) Lymphocytes (%) (Auto) 8.6 % (9.0-44.0) Monocytes (%) (Auto) 9.1 % (0.0-8.0) Neutrophils # (Auto) 8.9 TH/MM3 (1.8-7.7) Lymphocytes # (Auto) 0.9 TH/MM3 (1.0-4.8) Monocytes # (Auto) 1.0 TH/MM3 (0-0.9) Random Glucose 114 MG/DL (74-106) Calcium Level 8.1 MG/DL (8.5-10.1) Estimat Glomerular Filtration Rate 77 ML/MIN (>89) Imaging Last Impressions Chest X-Ray 06/16/17 0600 Signed Impressions: Service Date/Time: May 04:46 - CONCLUSION: Status post left pneumonectomy. The appearance the left chest is unchanged from the prior exam. There's been removal of the chest tubes. Torsten Yusuf MD Lower Extremity Ultrasound 06/08/17 0000 Signed Impressions: Service Date/Time: Thursday, June 08, 2017 11:29 - CONCLUSION: Venous mapping as delineated above. Torsten Yusuf MD Chest CT 06/08/17 0000 Signed Impressions: Service Date/Time: Thursday, June 08, 2017 12:42 - CONCLUSION: Normal examination status post left lobectomy. There is a minimal residual density along the pleural cavity without concerning features. Santos Morrow MD Carotid Artery Ultrasound 06/08/17 0000 Signed Impressions: Service Date/Time: Thursday, June 08, 2017 11:49 - CONCLUSION: Normal examination except for mild atherosclerotic disease without two-dimensional stenosis. Santos Morrow MD PE at Discharge GENERAL: A&O x 3 SKIN: Warm and dry. prevena in place to chest HEAD: Normocephalic. EYES: No scleral icterus. No injection or drainage. NECK: Supple, trachea midline. No JVD or lymphadenopathy. CARDIOVASCULAR: Regular rate and rhythm without murmurs, gallops, or rubs. mild edema RESPIRATORY: Breath sounds equal bilaterally. No accessory muscle use. slightly diminished in bases GASTROINTESTINAL: Abdomen soft, non-tender, nondistended. MUSCULOSKELETAL: No cyanosis, or edema. BACK: Nontender without obvious deformity. No CVA tenderness. Hospital Course 06/14 up in chair, on 2 liter nasal cannula pain controlled no pressors, CXR noted will transfer to stepdown 06/15 chest tubes removed without difficultly remains in Afib rate 110, BB increased gentle diuresis resume xarelto in am dc plavix 06/16 on xarelto , HR varies 100-120 BB slowly increased 2/[address] Aaron jose for dc to rehab tomorrow continue low dose diuretic 12/ HR improved, tolerating increased BB on xarelto, stable for discharge remains in Afib, rate controlled Pt Condition on Discharge: Good Discharge Disposition: Disch w/ Home Health Serv Discharge Instructions DIET: Follow Instructions for: As Tolerated, No Restrictions Activities you can perform: Full Weight Bearing, Shower Only-No Bath Activities to avoid: Strenuous Activity, Driving Additional Activity Instructio: no lifting > 8 lbs or gallon of milk Follow up Referrals: Cardiology - 4 Weeks with Mahesh Carrera MD PCP Follow-up - 2 Weeks with Santos Baker MD Surgical - 2 Weeks with Adelita Bach New Medications: Aspirin (Tgt Aspirin) 81 Mg Chw 81 MG PO DAILY for Blood Clot Prevention, #30 EA 2 Refills Docusate Sodium (Dok) 100 Mg Cap 100 MG PO DAILY for Constipation, #30 CAP Hydrocodone/Acetaminophen (Hydrocodone-Acetamin 5-325 mg) 5 Mg-325 Mg Tablet 1 TAB PO Q6H PRN for PAIN SCALE 1 TO 5, #30 TAB 0 Refills Metoprolol Tartrate (Metoprolol Tartrate) 25 Mg Tab 50 MG PO BID for Blood Pressure Management, #60 TAB 2 Refills Continued Medications: Ascorbic Acid (Vitamin C) 250 Mg Chew 500 MG CHEW BID for Nutritional Supplement, #60 TAB 0 Refills Levothyroxine (Levothyroxine) 112 Mcg Tab 112 MCG PO DAILY for Thyroid, #30 TAB 0 Refills Multiple Vitamins W/ Minerals (Centrum) 1 Chew 1 TAB CHEW DAILY for Nutritional Supplement, TAB 0 Refills Rivaroxaban (Xarelto) 10 Mg Tab 10 MG PO DAILY for Blood Clot Prevention, TAB 0 Refills Simvastatin (Simvastatin) 10 Mg Tab 10 MG PO DAILY for Cholesterol Management, #30 TAB 0 Refills Discontinued Medications: Metoprolol Succinate ER 24 HR (Metoprolol Succinate ER 24 HR) 25 Mg Tab 25 MG PO BID, #30 TAB 0 Refills Adelita Bach Jun 17, 2017 13:53
== END 2017-06-17 15:14 | disposition home health service (06) | DRG 234 ==
LOC: NEPC 07:49 → NEDA 09:03 → HCPC 14:49 → OBSVTOIN 06-09 08:26 → HCIS 06-13 07:13 → HCVI 06-13 12:30 → HCPC 06-14 09:02
PROVIDERS: ADMIT Internal Medicine; ATTEND Thoracic Surgery (Cardiothoracic Vascular Surgery)
PROC: B2111ZZ Fluoroscopy of Multiple Coronary Arteries using Low Osmolar Contrast (ICD-10-PCS; 2017-06-08)
PROC: 4A023N7 Measurement of Cardiac Sampling and Pressure, Left Heart, Percutaneous Approach (ICD-10-PCS; principal; 2017-06-08 08:30)
PROC: 021009W Bypass Coronary Artery, One Artery from Aorta with Autologous Venous Tissue, Open Approach (ICD-10-PCS; 2017-06-13)
PROC: 02NN0ZZ Release Pericardium, Open Approach (ICD-10-PCS; 2017-06-13)
PROC: 06BP4ZZ Excision of Right Saphenous Vein, Percutaneous Endoscopic Approach (ICD-10-PCS; 2017-06-13)
PROC: 02100Z9 Bypass Coronary Artery, One Artery from Left Internal Mammary, Open Approach (ICD-10-PCS; 2017-06-13 07:08)
DX: I25.110 Atherosclerotic heart disease of native coronary artery with unstable angina pectoris (principal); I31.0 Chronic adhesive pericarditis; I27.20 Pulmonary hypertension, unspecified; I48.1 Persistent atrial fibrillation; I48.2 Chronic atrial fibrillation; I44.7 Left bundle-branch block, unspecified; I73.9 Peripheral vascular disease, unspecified; Z85.038 Personal history of other malignant neoplasm of large intestine; E03.9 Hypothyroidism, unspecified; E78.5 Hyperlipidemia, unspecified; Z79.01 Long term (current) use of anticoagulants; Z85.118 Personal history of other malignant neoplasm of bronchus and lung; Z87.891 Personal history of nicotine dependence; Z86.73 Personal history of transient ischemic attack (TIA), and cerebral infarction without residual deficits; J98.4 Other disorders of lung; Z90.2 Acquired absence of lung [part of]
CPT/HCPCS: 71010; 71250; 76937; 80048; 80061; 80076; 81001; 82550; 83036; 83735; 84100; 84443; 84484; 85025; 85027; 85610; 85730; 86850; 86900; 86901; 86920; 87641; 93005; 93306; 93318; 93458; 93880; 93922; 93970; 93998; 94002; 94010; 94150; 94640; 94664; 94667; 94668; C1768; C1769; C1893; J0131; J0690; J1265; J1644; J1815; J1817; J1940; J2250; J2440; J3010; J3370; J3475; J3480; J7040; J7120; Q9967